=== PATIENT | male | born 1945 ===

== ENCOUNTER 2016-12-04 01:09 | Inpatient (IN) | payer OTHER, MEDICAID ==
[2016-12-04 01:16] VITALS: BMI 37.4
--- NOTE | 2016-12-04 01:35 | ED PDOC ---
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 Pt states pain began as intermittent and has slowly progressed to consistent pain. Pt indicates epigastric region when asked to point to pain. Pt reports 1 episode of non- bloody diarrhea yesterday accompanied by dizziness. Pt continued to have dizziness and nausea today. Pt also describes his abd as hard and distended which is unusual for him. Pt admits to decreased appetite. Pt denies F/C, CP, SOB, vomiting. (Eula Mathew) Past Medical History - Provider Review Nursing Documentation Reviewed: Yes - Infectious Disease Hx of Infectious Diseases: None - Tetanus Immunization Tetanus Immunization: Unknown - Cardiac Hx TN: Yes (x1) Hx Hypertension: Yes Hx Pacemaker: Yes (MEDTRONIC) - Neurological HX Cerebrovascular Accident: Yes (x1) Hx Paralysis: No - Endocrine/Metabolic Hx Diabetes Mellitus Type 2: Yes Hx Hypothyroidism: Yes - Hematological/Oncological Hx Blood Transfusions: No Hx Blood Transfusion Reaction: No - Integumentary Hx Dermatological Disorder: (facial skin ca) - Musculoskeletal/Rheumatological Hx Musculoskeletal Disorders: Yes - Psychiatric Hx Emotional Abuse: No Hx Physical Abuse: No Hx Substance Use: No - Surgical History Hx Open Heart Surgery: Yes Hx Orthopedic Surgery: Yes (right hand) Other/Comment: PACE MAKER - Anesthesia Hx Anesthesia: Yes Hx Anesthesia Reactions: No Hx Malignant Hyperthermia: No - Suicidal Assessment Feels Threatened In Home Enviroment: No <Eula Mathew - Last Filed: 12/04/16 06:03> Family/Social History Family/Social History: No Known Family HX Smoking Status: Former Smoker Hx Alcohol Use: No (QUIT YRS AGO) Hx Substance Use: No Hx Substance Use Treatment: No <Eula Mathew - Last Filed: 12/04/16 06:03> Allergies/Home Meds <Eula Mathew - Last Filed: 12/04/16 06:03> <Julien Edgar - Last Filed: 12/04/16 06:17> Allergies/Adverse Reactions: Allergies No Known Allergies Allergy (Verified 12/04/16 01:21) Home Medications: Home Meds Medication Instructions Recorded Confirmed Fenofibrate 160 mg PO QAM 07/14/12 12/04/16 Oxcarbazepine [Trileptal] 150 mg PO QAM 07/14/12 12/04/16 Simvastatin 40 mg PO QPM 07/14/12 12/04/16 MetFORMIN [glucoPHAGE] 500 mg PO TID 09/02/14 12/04/16 Furosemide [Lasix] 40 mg PO QAM 10/03/14 12/04/16 Pantoprazole [Protonix] 40 mg PO QAM 10/03/14 12/04/16 Cyanocobalamin [Vitamin B12 100 100 mcg PO BID 05/07/16 12/04/16 mcg Tab] Levothyroxine Sodium [Unithroid] 25 mcg PO QAM 05/07/16 12/04/16 Lisinopril 10 mg PO QAM 05/07/16 12/04/16 Metoprolol Tartrate [Lopressor] 25 mg PO BID 05/07/16 12/04/16 Potassium Chloride 20 meq PO QAM 05/07/16 12/04/16 Warfarin Sodium [Jantoven] 3 mg PO DAILY 05/07/16 12/04/16 Icosapent Ethyl [Vascepa] 1 tab PO DAILY 12/04/16 12/04/16 Review of Systems - Physician Review All systems were reviewed & negative as marked: Yes - Review of Systems Respiratory: absent: SOB Cardiovascular: absent: Chest Pain <QuincyEula - Last Filed: 12/04/16 06:03> Physical Exam Vital Signs Reviewed: Yes Temperature: Afebrile Blood Pressure: Normal Pulse: Regular Respiratory Rate: Normal Appearance: Positive for: Uncomfortable Pain Distress: Mild Mental Status: Positive for: Alert and Oriented X 3 - Systems Exam Head: Present: Atraumatic, Normocephalic Pupils: Present: PERRL Extroacular Muscles: Present: EOMI Conjunctiva: Present: Normal Mouth: Present: Moist Mucous Membranes Respiratory/Chest: Present: Clear to Auscultation, Good Air Exchange. No: Respiratory Distress, Accessory Muscle Use Cardiovascular: Present: Regular Rate and Rhythm, Normal S1, S2. No: Murmurs Abdomen: Present: Tenderness (TTP LLQ/epigastric), Distention (moderate), Guarding (voluntary), Hernias (umbilical), Scars. No: Normal Bowel Sounds ( hypoactive), Peritoneal Signs, Rebound Upper Extremity: Present: Normal Inspection Lower Extremity: Present: Normal Inspection, NORMAL PULSES. No: Edema Neurological: Present: GCS=15, Speech Normal Skin: Present: Warm, Dry, Normal Color Psychiatric: Present: Alert, Oriented x 3, Normal Concentration, Normal Affect, Normal Mood <Eula Mathew - Last Filed: 12/04/16 06:03> Medical Decision Making - RAD Interpretation Order Desk Caller: ED Physician - EKG Interpretation Interpreted by ED Physician: Yes Type: 12 lead EKG <Eula Mathew - Last Filed: 12/04/16 06:03> <Julien Edgar - Last Filed: 12/04/16 06:17> ED Course and Treatment: 12/04/16 02:11 71 year old M w/ abd pain 2/2 diverticulitis vs gastric ulcer vs ischemic colitis - CBC, CMP, Lipase - Lactic Acid - Cardiac ISO - EKG - CXR - CT A/P w/ PO & IV contrast 12/04/16 06:06 Surgical consult placed for Dr. Gomez per Dr. Corbin's request (Eula Mathew) Seen and examined with resident. 71 y/o M with significant cardiac history p/w abdominal distention, vomiting. Abdomen distended with epigastric and LLQ tenderness. (Julien Edgar) - Lab Interpretations Lab Results: 12/04/16 01:35 12/04/16 01:35 Lab Results 12/04/16 01:35: Sodium 143, Potassium 4.2, Chloride 105, Carbon Dioxide 26, Anion Gap 16, BUN 26 H, Creatinine 1.5 H, Est GFR ( Amer) 56, Est GFR ( Non-Af Amer) 46, Random Glucose 146 H, Calcium 10.2, Total Bilirubin 0.5, AST 30 , ALT 30, Alkaline Phosphatase 38, Lactate Dehydrogenase 588, Total Creatine Kinase 89, Troponin I < 0.01, Total Protein 8.0, Albumin 4.5, Globulin 3.5, Albumin/Globulin Ratio 1.3, Amylase 93, Lipase 124 12/04/16 01:35: PT 23.3 H, INR 2.16 H, APTT 34.5 H 12/04/16 01:35: WBC 11.5 H D, RBC 4.48, Hgb 13.8 L, Hct 41.2 L, MCV 92.0, MCH 30.8, MCHC 33.5, RDW 14.4, Plt Count 286, MPV 9.9, Gran % 76.5 H, Lymph % (Auto ) 18.2 L, [place] % (Auto) 3.7, Eos % (Auto) 1.1 L, Baso % (Auto) 0.5, Gran # 8.78 H, Lymph # 2.1, [place] # 0.4, Eos # 0.1, Baso # 0.06 - RAD Interpretation Narrative RAD Interpretations (Text): 12/04/16 03:05 CXR: cardiomegaly, no active disease. no pneumoperitoneum. interpretted by mi 12/04/16 06:03 CT A/P w/ PO contrast: FINDINGS: The liver is normal. The spleen is normal. The pancreas is normal. Gallstones are present. No hydronephrosis. There is bilateral perinephric stranding. There is dilation of the distal esophagus and stomach with fluid. There are dilated proximal small bowel loops in the abdomen and upper pelvis measuring up to 3 cm in diameter. The dilated loops contain contrast, fluid, and stool. There are nondilated small bowel loops distally. The transition from the dilated loops to the nondilated loops occurs gradually in the right lower abdomen on images 84 through 140, rather than an abrupt transition point. A normal appendix is identified axial images 90-112. IMPRESSION: Dilated proximal small bowel with nondilated distal small bowel. Differential diagnosis includes mid small bowel obstruction, focal ileus, focal enteritis. An abrupt transition point is not present, but rather a gradual decrease in caliber, making obstruction less likely however still possible. Cholelithiasis. (Eula Mathew) - EKG Interpretation EKG Interpretation (Text): 12/04/16 02:13 ventricular paced w/ underlying Afib, HR 80, poor R-wave progression (Eula Mathew) - Medication Orders Current Medication Orders: Discontinued Medications Famotidine (Pepcid) 20 mg IVP STAT STA Stop: 12/04/16 01:55 Last Admin: 12/04/16 02:23 Dose: 20 mg Lactated Ringer's (Lactated Ringer's) 1,500 mls @ 1,000 mls/hr IV BOLUS STA Stop: 12/04/16 03:23 Last Admin: 12/04/16 02:29 Dose: 1,000 mls/hr Piperacillin Sod/Tazobactam Sod (Zosyn 4.5 Gm In Ns 100ml) 4.5 gm in 100 mls @ 200 mls/hr IVPB STAT STA PRN Reason: Protocol Stop: 12/04/16 03:11 Last Admin: 12/04/16 03:15 Dose: 200 mls/hr Sodium Chloride (Sodium Chloride 0.9%) 500 mls @ 999 mls/hr IV .Q31M STA Stop: 12/04/16 05:53 Last Admin: 12/04/16 05:40 Dose: 999 mls/hr Morphine Sulfate (Morphine) 4 mg IVP STAT STA Stop: 12/04/16 01:55 Last Admin: 12/04/16 02:23 Dose: 4 mg Morphine Sulfate (Morphine) 4 mg IVP STAT STA Stop: 12/04/16 05:05 Last Admin: 12/04/16 05:08 Dose: 4 mg Ondansetron HCl (Zofran Inj) 4 mg IVP STAT STA Stop: 12/04/16 01:55 Last Admin: 12/04/16 02:23 Dose: 4 mg ED OBSERVATION <Eula Mathew - Last Filed: 12/04/16 06:03> Date of observation admission: 12/04/16 Time of observation admission: 01:54 <Julien Edgar - Last Filed: 12/04/16 06:17> - Observation admission statement Patient is being placed in observation because:: abd pain (Julien Edgar) - Goals of Observation Goals of observation are:: observation pending CT (Jluien Edgar) - Progress Note Progress Note: 12/04/16 05:[address] read. pain returning. diffusely TTP. abd firmer than initial exam. still distended. (Eula Mathew) 354 No distress, pending CT. [address] No distress. (Julien Edgar) Disposition/Present on Arrival - Present on Arrival Any Indicators Present on Arrival: No History of DVT/PE: No History of Uncontrolled Diabetes: Yes Urinary Catheter: No History of Decub. Ulcer: No History Surgical Site Infection Following: None - Disposition Have Diagnosis and Disposition been Completed?: Yes Disposition Time: 06:07 Patient Plan: Admission, Observation <Eula Mathew - Last Filed: 12/04/16 06:03> <Julien Edgar - Last Filed: 12/04/16 06:17> - Disposition Diagnosis: Abdominal pain, acute, generalized Patient Problems: Current Active Problems Problem Status Onset Abdominal pain, acute, generalized Acute Condition: STABLE
[2016-12-04] MEDS ORDERED: Morphine 4 mg/ml ISec IVP STA ×2 (01:54→05:04)
[2016-12-04 02:21] LABS: ADD MANUAL DIFF? NO
[2016-12-04 02:23] LABS: BASO # 0.06 K/mm3 (0.0-2.0); BASO % 0.5 % (0.0-3.0); EOS # 0.1 (0.0-0.7); EOS % 1.1 % (1.5-5.0); GRAN # 8.78 (1.4-6.5); GRAN % 76.5 % (50.0-68.0); HEMATOCRIT 41.2 % (42.0-52.0); LYMPH # 2.1 (1.2-3.4); LYMPH % 18.2 % (22.0-35.0); MEAN CORPUSCULAR HEMOGLOBIN 30.8 pg (25.0-35.0); MEAN CORPUSCULAR HGB CONC 33.5 g/dl (31.0-37.0); MEAN PLATELET VOLUME 9.9 fl (7.0-11.0); MONO # 0.4 (0.1-0.6); MONO % 3.7 % (1.0-6.0); PLATELET COUNT 286 10^3/uL (120.0-450.0); RED CELL DISTRIBUTION WIDTH 14.4 % (11.5-14.5); WHITE BLOOD COUNT 11.5 10^3/ul (4.5-11.0)
[2016-12-04 02:36] LABS: INR 2.16 (0.93-1.08); PARTIAL THROMBOPLASTIN TIME 34.5 Seconds (23.7-30.8)
[2016-12-04 02:39] LABS: ALB/GLOB RATIO 1.3 (1.1-1.8); ALKALINE PHOSPHATASE 38 U/L (38-133); ALT/SGPT 30 U/L (7-56); AMYLASE 93 U/L (35-125); AST/SGOT 30 U/L (15-59); BILIRUBIN,TOTAL 0.5 mg/dL (0.2-1.3); BLOOD UREA NITROGEN 26 mg/dL (7-21); CALCIUM 10.2 mg/dL (8.4-10.5); CARBON DIOXIDE 26 mmol/L (21-33); CHLORIDE 105 mmol/L (98-107); GFR AFRICAN-AMERICAN 56; GLUCOSE,RANDOM 146 mg/dL (70-110); LIPASE 124 U/L (23-300); POTASSIUM 4.2 mmol/L (3.6-5.0); SODIUM 143 mmol/L (132-148)
[2016-12-04] MEDS ORDERED: Piperacill/Tazo 4.5gm in NS 4.5 GM/100 ML BAG IVPB STA (02:42)
[2016-12-04 02:51] LABS: TROPONIN I < 0.01 ng/mL
[2016-12-04] MEDS ORDERED: Sodium Chloride 0.9% 500 ML IV STA (05:23)
--- NOTE | 2016-12-04 06:00 | CT ---
EXAM: CT Abdomen and Pelvis With Intravenous Contrast CLINICAL HISTORY: 71 years old, male; Pain; Abdominal pain; Additional info: Abd pain, distension TECHNIQUE: Axial computed tomography images of the abdomen and pelvis with intravenous contrast. This CT exam was performed using one or more of the following dose reduction techniques: automated exposure control, adjustment of the mA and/or kV according to patient size, and/or use of iterative reconstruction technique. Coronal and sagittal reformatted images were created and reviewed. CONTRAST: 100 mL of [id number] administered intravenously. EXAM DATE/TIME: 12/04/2016 4:24 AM COMPARISON: No relevant prior studies available. FINDINGS: The liver is normal. The spleen is normal. The pancreas is normal. Gallstones are present. No hydronephrosis. There is bilateral perinephric stranding. There is dilation of the distal esophagus and stomach with fluid. There are dilated proximal small bowel loops in the abdomen and upper pelvis measuring up to 3 cm in diameter. The dilated loops contain contrast, fluid, and stool. There are nondilated small bowel loops distally. The transition from the dilated loops to the nondilated loops occurs gradually in the right lower abdomen on images 84 through 140, rather than an abrupt transition point. A normal appendix is identified axial images 90-112. IMPRESSION: Dilated proximal small bowel with nondilated distal small bowel. Differential diagnosis includes mid small bowel obstruction, focal ileus, focal enteritis. An abrupt transition point is not present, but rather a gradual decrease in caliber, making obstruction less likely however still possible. Cholelithiasis.
[2016-12-04] MEDS: HYDROmorphone 0.5 mg/0.5 ml ISec IVP PRN ×2 (09:54→23:52)
[2016-12-04] MEDS: Lactated Ringer's 1,000 ML IV SCH ×3 (10:00→22:00)
--- NOTE | 2016-12-04 10:23 | CP.PCM.CON ---
<Lit Isabel - Last Filed: 12/05/16 06:47> History of Present Illness - History of Present Illness History of Present Illness: General Surgery Consult Note for CC: Abdominal pain X 1 day This 71M with a PMH of HTN, Hypothyroid, AFib, DM, CABG s/p stenting presented with one day of abdominal pain. He reports one episode of coffee ground emesis. He also reports that last BM was yesterday. he describes his belly as being significantly larger than it usually is. He denies any fevers chills chest pain. He reports this is the first time he has had this kind of episode. He reports his pain as diffuse. Worse with sitting up. Nothing makes it better. CT in ED shows mildly distended loops of small bowel and significant fluid in the stomach. NGT placed at bedside by me yielded immediate output of over 1L bilious chyme, followed by self limiting sanguinous output. PMH: See above PSH: Open Heart ALL: NKDA Social: Denies smoking, drinking, drugs Review of Systems - Review of Systems All systems: reviewed and no additional remarkable complaints except Past Patient History - Infectious Disease Hx of Infectious Diseases: None - Tetanus Immunizations Tetanus Immunization: Unknown - Past Social History Smoking Status: Former Smoker - CARDIAC Hx Heart Attack: Yes (x1) Hx Hypertension: Yes Hx Pacemaker: Yes (MEDTRONIC) - NEUROLOGICAL HX Cerebrovascular Accident: Yes (x1) Hx Paralysis: No - ENDOCRINE/METABOLIC Hx Diabetes Mellitus Type 2: Yes Hx Hypothyroidism: Yes - HEMATOLOGICAL/ONCOLOGICAL Hx Blood Transfusions: No Hx Blood Transfusion Reaction: No - INTEGUMENTARY Hx Dermatological Problems: (facial skin ca) - MUSCULOSKELETAL/RHEUMATOLOGICAL Hx Musculoskeletal Disorders: Yes - PSYCHIATRIC Hx Emotional Abuse: No Hx Physical Abuse: No Hx Substance Use: No - SURGICAL HISTORY Hx Open Heart Surgery: Yes Hx Orthopedic Surgery: Yes (right hand) Other/Comment: PACE MAKER - ANESTHESIA Hx Anesthesia: Yes Hx Anesthesia Reactions: No Hx Malignant Hyperthermia: No Meds Allergies/Adverse Reactions: Allergies Allergy/AdvReac Type Severity Reaction Status Date / Time No Known Allergies Allergy Verified 12/04/16 01:21 - Medications Medications: Current Medications Hydromorphone HCl (Dilaudid) 0.5 mg IVP Q6H PRN PRN Reason: Pain, severe (8-10) Last Admin: 12/04/16 09:54 Dose: 0.5 mg Lactated Ringer's (Lactated Ringer's) 1,000 mls @ 150 mls/hr IV .Q6H40M [facility] Last Admin: 12/04/16 10:00 Dose: 150 mls/hr Physical Exam - Constitutional Appears: Non-toxic, No Acute Distress - Head Exam Head Exam: ATRAUMATIC, NORMOCEPHALIC - Eye Exam Eye Exam: EOMI - ENT Exam ENT Exam: Mucous Membranes Moist - Respiratory Exam Respiratory Exam: NORMAL BREATHING PATTERN - Cardiovascular Exam Cardiovascular Exam: REGULAR RHYTHM - GI/Abdominal Exam GI & Abdominal Exam: Distended, Soft, Tenderness. absent: Firm, Guarding, Hernia, Pulsatile Mass, Rebound, Rigid - Extremities Exam Extremities exam: Positive for: normal inspection - Neurological Exam Neurological exam: Alert, Oriented x3 - Psychiatric Exam Psychiatric exam: Normal Affect, Normal Mood - Skin Skin Exam: Dry, Intact, Normal Color Results - Vital Signs Recent Vital Signs: Last Vital Signs Temp 97.9 F 12/04/16 07:48 Pulse 64 12/04/16 07:48 Resp 18 12/04/16 07:48 BP 152/66 H 12/04/16 07:48 Pulse Ox 95 12/04/16 07:48 - Labs Result Diagrams: 12/04/16 11:00 12/04/16 13:20 Labs: Laboratory Results - last 24 hr 12/04/16 02:20 Lactic Acid 3.0 H - Imaging and Cardiology CT scan - abdomen Status: Image reviewed by me, Report reviewed by me Assessment & Plan - Assessment and Plan (Free Text) Assessment: This is a 71M presenting with abdominal pain likely due to an ileus vs SBO. NPO with ice chips NGT to constant suction @ 100 serial abdominal exams Medical managment per primary team. D/W Dr. Jason Isabel PGY-1 <Oscar Gomez - Last Filed: 12/05/16 10:31> Meds - Medications Medications: Current Medications Benzocaine/Menthol (Cepacol Sore Throat) 1 caron MT Q2H PRN PRN Reason: Sore Throat Last Admin: 12/05/16 09:05 Dose: 1 caron Lactated Ringer's (Lactated Ringer's) 1,000 mls @ 150 mls/hr IV .Q6H40M [facility] Last Admin: 12/05/16 09:05 Dose: 150 mls/hr Piperacillin Sod/Tazobactam Sod (Zosyn 3.375 In Ns 100ml) 100 mls @ 200 mls/hr IVPB Q6 DYLON PRN Reason: Protocol Stop: 12/05/16 18:29 Results - Vital Signs Recent Vital Signs: Last Vital Signs Temp 98.8 F 12/05/16 08:09 Pulse 61 12/05/16 08:09 Resp 18 12/05/16 08:09 BP 156/66 H 12/05/16 08:09 Pulse Ox 91 L 12/05/16 08:09 - Labs Result Diagrams: 12/05/16 05:00 12/05/16 08:01 Labs: Laboratory Results - last 24 hr 12/04/16 12/04/16 12/05/16 11:00 13:20 05:00 WBC 12.3 H 7.5 D RBC 4.23 4.04 Hgb 12.7 L 12.2 L Hct 38.9 L 37.6 L MCV 92.0 93.1 MCH 30.0 30.2 MCHC 32.6 32.4 RDW 14.4 14.6 H Plt Count 280 244 MPV 9.8 9.7 Gran % 89.4 H 66.3 Lymph % (Auto) 4.6 L 19.3 L [place] % (Auto) 5.6 9.9 H Eos % (Auto) 0.2 L 4.0 Baso % (Auto) 0.2 0.5 Gran # 10.99 H 4.96 Lymph # 0.6 L 1.4 [place] # 0.7 H 0.7 H Eos # 0.0 0.3 Baso # 0.03 0.04 Sodium 141 Potassium 4.4 Chloride 106 Carbon Dioxide 24 Anion Gap 15 BUN 23 H Creatinine 1.3 Est GFR ( Amer) > 60 Est GFR (Non-Af Amer) 55 Random Glucose 117 H Calcium 9.5 Total Bilirubin 0.4 AST 30 ALT 26 Alkaline Phosphatase 35 L Total Protein 7.2 Albumin 4.0 Globulin 3.2 Albumin/Globulin Ratio 1.3 Triglycerides Cholesterol LDL Cholesterol Direct HDL Cholesterol Amylase Lipase 47 12/05/16 08:01 WBC RBC Hgb Hct MCV MCH MCHC RDW Plt Count MPV Gran % Lymph % (Auto) [place] % (Auto) Eos % (Auto) Baso % (Auto) Gran # Lymph # [place] # Eos # Baso # Sodium 141 Potassium 3.8 Chloride 105 Carbon Dioxide 29 Anion Gap 11 BUN 18 Creatinine 1.3 Est GFR ( Amer) > 60 Est GFR (Non-Af Amer) 55 Random Glucose 101 Calcium 8.9 Total Bilirubin 0.7 AST 25 ALT 28 Alkaline Phosphatase 31 L Total Protein 6.4 Albumin 3.4 Globulin 3.0 Albumin/Globulin Ratio 1.1 Triglycerides 130 Cholesterol 127 L LDL Cholesterol Direct 83 HDL Cholesterol 30 Amylase 55 Lipase Assessment & Plan - Assessment and Plan (Free Text) Assessment: Dx PSBO vs Ileus DM II/HTCAD/BPH Kyler NG Tube(!500cc initially) IV Fluids(150/hr) This consult done under my direct supervision Chele Gomez MD FACS
[2016-12-04 11:09] LABS: ADD MANUAL DIFF? NO
[2016-12-04 11:13] LABS: BASO # 0.03 K/mm3 (0.0-2.0); BASO % 0.2 % (0.0-3.0); EOS % 0.2 % (1.5-5.0); GRAN # 10.99 (1.4-6.5); GRAN % 89.4 % (50.0-68.0); HEMATOCRIT 38.9 % (42.0-52.0); LYMPH # 0.6 (1.2-3.4); LYMPH % 4.6 % (22.0-35.0); MEAN CORPUSCULAR HGB CONC 32.6 g/dl (31.0-37.0); MEAN PLATELET VOLUME 9.8 fl (7.0-11.0); MONO # 0.7 (0.1-0.6); MONO % 5.6 % (1.0-6.0); PLATELET COUNT 280 10^3/uL (120.0-450.0); RED CELL DISTRIBUTION WIDTH 14.4 % (11.5-14.5); WHITE BLOOD COUNT 12.3 10^3/ul (4.5-11.0)
[2016-12-04] MEDS ORDERED: Pneumococcal 23-Valent Vaccine IM ONE (12:16)
--- NOTE | 2016-12-04 12:43 | CP.PCM.PCO ---
Physician Communication Note - Physician Communication Note Physician Communication Note: PSBOW Bleeding(NGT)/Cons Rx Now=no surgery
[2016-12-04 13:55] LABS: ALB/GLOB RATIO 1.3 (1.1-1.8); ALKALINE PHOSPHATASE 35 U/L (38-133); ALT/SGPT 26 U/L (7-56); AST/SGOT 30 U/L (15-59); BILIRUBIN,TOTAL 0.4 mg/dL (0.2-1.3); BLOOD UREA NITROGEN 23 mg/dL (7-21); CALCIUM 9.5 mg/dL (8.4-10.5); CARBON DIOXIDE 24 mmol/L (21-33); CHLORIDE 106 mmol/L (98-107); GFR AFRICAN-AMERICAN > 60; GLUCOSE,RANDOM 117 mg/dL (70-110); LIPASE 47 U/L (23-300); POTASSIUM 4.4 mmol/L (3.6-5.0); SODIUM 141 mmol/L (132-148); TOTAL PROTEIN 7.2 g/dL (5.8-8.3)
--- NOTE | 2016-12-04 15:48 | CARD ---
APPROVED REPORT EKG Measurement Heart [id number] <Conclusion> Electronic ventricular pacemaker
--- NOTE | 2016-12-05 06:57 | CP.PCM.PN ---
<Lit Isabel - Last Filed: 12/05/16 06:54> Subjective - Date & Time of Evaluation Date of Evaluation: 12/05/16 Time of Evaluation: 06:54 - Subjective Subjective: General Surgery progress Note for Dr. Gomez This 71M was seen and examined this Am at bedside. Reports BM andflatus overnight. He reporst that his abdominal pain is resolved however he still feels bloated and denies apetitis. Patient deneis any fevers, chills, chest pain nausea vomiting or diarrhea. His main complain this Am is sore throat. Objective - Vital Signs/Intake and Output Vital Signs (last 24 hours): Temp Pulse Resp BP Pulse Ox 98.6 F 63 20 164/70 H 97 12/04/16 18:13 12/04/16 18:13 12/04/16 18:13 12/04/16 18:13 12/04/16 18:13 Intake and Output: 12/04/16 12/05/16 18:59 06:59 Intake Total 0 1800 Output Total 300 Balance 0 1500 - Medications Medications: Current Medications Hydromorphone HCl (Dilaudid) 0.5 mg IVP Q6H PRN PRN Reason: Pain, severe (8-10) Last Admin: 12/04/16 23:52 Dose: 0.5 mg Lactated Ringer's (Lactated Ringer's) 1,000 mls @ 150 mls/hr IV .Q6H40M DYL[facility] Last Admin: 12/04/16 22:00 Dose: 150 mls/hr - Labs Labs: 12/04/16 11:00 12/04/16 13:20 PT 23.3 Seconds (9.9-11.8) H 12/04/16 01:35 INR 2.16 (0.93-1.08) H 12/04/16 01:35 APTT 34.5 Seconds (23.7-30.8) H 12/04/16 01:35 - Constitutional Appears: Non-toxic, No Acute Distress - Head Exam Head Exam: ATRAUMATIC, NORMOCEPHALIC - Eye Exam Eye Exam: EOMI - ENT Exam ENT Exam: Mucous Membranes Moist - Respiratory Exam Respiratory Exam: NORMAL BREATHING PATTERN - Cardiovascular Exam Cardiovascular Exam: REGULAR RHYTHM - GI/Abdominal Exam GI & Abdominal Exam: Soft. absent: Distended, Firm, Guarding, Rigid, Tenderness - Neurological Exam Neurological Exam: Alert, Awake - Psychiatric Exam Psychiatric exam: Normal Affect, Normal Mood - Skin Skin Exam: Dry, Intact, Normal Color Assessment and Plan - Assessment and Plan (Free Text) Assessment: This is a 71M presenting with abdominal pain likely due to an ileus vs SBO which shows signs of resolution NPO with ice chips, Advance as tolerated NGT clamped serial abdominal exams Medical managment per primary team. D/W Dr. Jason Isabel PGY-1 <Oscar Gomez - Last Filed: 12/05/16 10:34> Objective - Vital Signs/Intake and Output Vital Signs (last 24 hours): Temp Pulse Resp BP Pulse Ox 98.8 F 61 18 156/66 H 91 L 12/05/16 08:09 12/05/16 08:09 12/05/16 08:09 12/05/16 08:09 12/05/16 08:09 Intake and Output: 12/05/16 12/05/16 06:59 18:59 Intake Total 1800 Output Total 300 Balance 1500 - Medications Medications: Current Medications Benzocaine/Menthol (Cepacol Sore Throat) 1 caron MT Q2H PRN PRN Reason: Sore Throat Last Admin: 12/05/16 09:05 Dose: 1 caron Lactated Ringer's (Lactated Ringer's) 1,000 mls @ 150 mls/hr IV .Q6H40M [facility] Last Admin: 12/05/16 09:05 Dose: 150 mls/hr Piperacillin Sod/Tazobactam Sod (Zosyn 3.375 In Ns 100ml) 100 mls @ 200 mls/hr IVPB Q6 DYLON PRN Reason: Protocol Stop: 12/05/16 18:29 - Labs Labs: 12/05/16 05:00 12/05/16 08:01 PT 23.3 Seconds (9.9-11.8) H 12/04/16 01:35 INR 2.16 (0.93-1.08) H 12/04/16 01:35 APTT 34.5 Seconds (23.7-30.8) H 12/04/16 01:35 Assessment and Plan - Assessment and Plan (Free Text) Assessment: Much improved--I & O totally inadequate Concur with NG Clamping - will recheck later No surgery now Chele Gomez MD FACS
--- NOTE | 2016-12-05 08:04 | RAD ---
HISTORY: abd distension COMPARISON: No prior. FINDINGS: LUNGS: No active pulmonary disease. PLEURA: No significant pleural effusion identified, no pneumothorax apparent. CARDIOVASCULAR: Cardiomegaly. Pacemaker and lead in place. Status post CABG. OSSEOUS STRUCTURES: No significant abnormalities. VISUALIZED UPPER ABDOMEN: Normal. OTHER FINDINGS: None. IMPRESSION: No active disease.
[2016-12-05 08:15] LABS: ADD MANUAL DIFF? NO; BASO # 0.04 K/mm3 (0.0-2.0); BASO % 0.5 % (0.0-3.0); EOS # 0.3 (0.0-0.7); GRAN # 4.96 (1.4-6.5); GRAN % 66.3 % (50.0-68.0); HEMATOCRIT 37.6 % (42.0-52.0); LYMPH # 1.4 (1.2-3.4); LYMPH % 19.3 % (22.0-35.0); MEAN CELL VOLUME 93.1 fL (80.0-105.0); MEAN CORPUSCULAR HEMOGLOBIN 30.2 pg (25.0-35.0); MEAN CORPUSCULAR HGB CONC 32.4 g/dl (31.0-37.0); MEAN PLATELET VOLUME 9.7 fl (7.0-11.0); MONO # 0.7 (0.1-0.6); MONO % 9.9 % (1.0-6.0); PLATELET COUNT 244 10^3/uL (120.0-450.0); RED CELL DISTRIBUTION WIDTH 14.6 % (11.5-14.5); WHITE BLOOD COUNT 7.5 10^3/ul (4.5-11.0)
[2016-12-05 08:25] LABS: ALB/GLOB RATIO 1.1 (1.1-1.8); ALKALINE PHOSPHATASE 31 U/L (38-133); ALT/SGPT 28 U/L (7-56); AMYLASE 55 U/L (35-125); AST/SGOT 25 U/L (15-59); BILIRUBIN,TOTAL 0.7 mg/dL (0.2-1.3); BLOOD UREA NITROGEN 18 mg/dL (7-21); CALCIUM 8.9 mg/dL (8.4-10.5); CARBON DIOXIDE 29 mmol/L (21-33); CHLORIDE 105 mmol/L (98-107); CHOLESTEROL 127 mg/dL (130-200); GFR AFRICAN-AMERICAN > 60; GLUCOSE,RANDOM 101 mg/dL (70-110); POTASSIUM 3.8 mmol/L (3.6-5.0); SODIUM 141 mmol/L (132-148); TOTAL PROTEIN 6.4 g/dL (5.8-8.3)
--- NOTE | 2016-12-05 08:30 | HP ---
The patient was seen and examined on 12/04/2016. CHIEF COMPLAINT: Abdominal pain. HISTORY OF PRESENT ILLNESS: The patient is a 71-year-old, my private patient, with past medical history of atrial fibrillation, CABG, hypertension, hypercholesterolemia, diabetes mellitus. Came to the Emergency Room complaining about sharp, severe abdominal pain. The patient states that pain began as intermittent and has slowly progressed to consistent pain. The patient indicates epigastric region when asked to point the pain. The patient reports 1 episode of nonbloody diarrhea yesterday accompanied by dizziness. The patient continued to have dizziness and nausea today. The patient also described his abdominal pain and distention, which is unusual for him, decreased appetite. Denies fever, chills, chest pain. Now, patient is having NG tube. Still complaining about abdominal pain. PAST MEDICAL HISTORY: History of SC, hypertension, pacemaker, cerebrovascular accident, diabetes mellitus type 2, facial skin cancer, open heart surgery, pacemaker. FAMILY HISTORY: Father and mother noncontributory. HABITS: No smoking, no drugs, no ethanol. ALLERGIES: The patient is not allergic with any medication. HOME MEDICATIONS: Fenofibrate, Trileptal, simvastatin, metformin, Lasix, Protonix, multivitamins, lisinopril, Lopressor, potassium chloride, REVIEW OF SYSTEMS: The patient seen and examined on the bedside on 12/04/2016, still having NG tube. Complaining about abdominal pain. No shortness of breath. No headache, no dizziness. No fever, no chills. Oriented x 3. PHYSICAL EXAMINATION: VITAL SIGNS: Temperature 98.6, pulse 63, blood pressure 164/70, respiratory rate 20. HEENT: Head normocephalic, atraumatic. Eyes, PERRLA. Extraocular muscles intact. Conjunctivae clear. Nose patent. Mucous membranes moist. NECK: Supple. No carotid bruit, no JVD, no thyromegaly. CHEST: Bilaterally symmetrical. HEART: S1, S2 positive. LUNGS: Clear to auscultation. ABDOMEN: Hard. Bowel sounds positive. No organomegaly. EXTREMITIES: No edema, no cyanosis. NEUROLOGIC: The patient is awake, alert, moving all 4 extremities. No focal deficit. LABORATORIES: White blood cells 12.3, hemoglobin 12.7, hematocrit 38.9, platelets 280. Sodium 141, potassium 4.4, BUN 23, creatinine 1.3, glucose 117 ASSESSMENT AND PLAN: The patient is a 71-year-old male with leukocytosis, anemia, increased BUN, hyperglycemia. Came with abdominal pain. Chest x-ray is done, CAT scan of the abdomen done, reviewed by me. Dilated proximal small bowel with nondilated distal small bowel. Differential diagnosis includes mid small bowel obstruction, focal ileus, focal enteritis and abrupt transition point is not present, but rather it gradually decreases in caliber making obstruction last like, however, still possible. The patient is seen by the surgeon, Dr. Gomez. The patient has history of hypertension, hypothyroidism , atrial fibrillation, diabetes mellitus, coronary artery bypass graft, status post cardiac stenting, history of coffee ground emesis, history of leukocytosis , anemia, hyperglycemia. According to Dr. Gomez, the patient does not need surgery, has nasogastric tube, still draining. Will call GI consult also. Gastrointestinal and deep venous thrombosis prophylaxis. Repeat labs. We will follow up. Holly Corbin MD cc: [id number] TT: 12/05/2016 08:29:16 en MTDD
[2016-12-05] MEDS: Lactated Ringer's 1,000 ML IV SCH ×3 (09:05→21:36)
[2016-12-05] MEDS: Benzocaine/Menthol (Cepacol) Lozenge MT PRN ×4 (09:05→21:35)
[2016-12-05] MEDS: Piperacillin/Tazobact 3.375 gm 100 ML IVPB SCH ×2 (13:07→17:15)
--- NOTE | 2016-12-05 18:37 | PN ---
DATE: 12/05/2016 SUBJECTIVE: The patient was seen and examined on the bedside, sitting on the chair. Still has NG tube draining, but very little. No nausea, vomiting, or diarrhea. No hematuria. Abdomen is still a little bit tight and feeling bloated and gassy but no diarrhea. No fever, no chills. No headache, no dizziness and no shortness of breath. PHYSICAL EXAMINATION: VITAL SIGNS: Temperature 99.9, pulse 72, blood pressure 150/66 and respiratory rate 16. HEENT: Head normocephalic, atraumatic. Eyes: PERRLA. Extraocular muscles intact. Conjunctivae clear. Nose patent. Mucous membranes moist. Nose patent. Has a NG tube. NECK: Supple. No carotid bruit, JVD or thyromegaly. CHEST: Bilaterally symmetrical. HEART: S1, S2 positive. LUNGS: Clear to auscultation. ABDOMEN: Soft. Bowel sounds present. No organomegaly. EXTREMITIES: No edema, no cyanosis. NEUROLOGIC: The patient is awake, alert, moving all 4 extremities. No focal deficits. MEDICATIONS: lactate Ringer, Protonix, piperacillin/tazobactam. LABORATORY DATA: White blood cells 7.5, hemoglobin 12.2, hematocrit 37.6, platelets 244. Sodium 141, potassium 3.8, BUN 18, creatinine noted . GFR more than 60. Alkaline phosphatase 31. ASSESSMENT AND PLAN: The patient is a 71-year-old male with leukocytosis, improved; anemia, stable; increased BUN, improved; history of myocardial infarction, hypertension, pacemaker, cerebrovascular accident, diabetes mellitus type 2, facial skin cancer, open heart surgery who came with abdominal pain, nausea, vomiting and NG tube. No more nauseous. Abdominal pain is getting better, but still tight. almost resolving. No fevers or chills. Concur with NG tube clamping, will recheck later. No surgery as per surgical team. GI is on the case. Awaiting for their input. Will repeat labs and will followup. Holly Corbin MD cc: [id number] TT: 12/05/2016 18:36:59 Confirmation # [id number] Dictation # [id number] vivien LINN
--- NOTE | 2016-12-05 18:48 | CON ---
DATE: 12/05/2016 REFERRING PHYSICIAN: Dr. Corbin. REASON FOR CONSULT: Chronic lung disease, history of sleep apnea syndrome, admitted with small-bowel obstruction. HISTORY OF PRESENT ILLNESS: This is a 71-year-old gentleman with past medical history significant fo r obstructive sleep apnea syndrome, coronary artery disease requiring coronary artery bypass surgery, atrial fibrillation, hyperlipidemia, diabetes, comes into Emergency Room for the last few days has b een having bloating of the abdomen, abdominal pain, had 1 diarrhea in ER, ended up getting x-rays and found to have a small bowel obstruction with dilatation of the proximal small bowel seen by Dr. Rd donovan. Nasogastric tube was placed in, drain fluid. Presently, sitting up in a chair, nasogastric tu be is clamped. He feels much better, but still feels bloated. Pain is gone. He did have a bowel mo vement. No leg pain or leg swelling. He is noncompliant with CPAP/BiPAP. No cough, no sputum produ ction, no leg pain or leg swelling. PAST MEDICAL HISTORY: Coronary artery disease, history of coronary bypass surgery, atrial fibrillati on, history of cardiac arrhythmia requiring pacemaker, history of stroke, diabetes, hyperlipidemia. SOCIAL HISTORY: Nonsmoker, nondrinker. ALLERGIES: None known. FAMILY HISTORY: No significant cardiopulmonary disease reported. MEDICATIONS: He is on Cepacol lozenges q. 2 hours for sore throat, IV fluids, lactated Ringer's 150 mL per hour, Zosyn 3.375 grams q. 6 hours. REVIEW OF SYSTEMS: No headache, no rhinitis, sore throat with a nasogastric tube. No chest pain, no cough, abdominal pain has improved. No dysuria. Did have a bowel movement this morning. No leg pa in or leg swelling. PHYSICAL EXAMINATION: GENERAL: Sitting up in a chair in no acute distress. VITAL SIGNS: Temp is 98, heart rate is 61, respiratory rate is 20, blood pressure 156/66, pulse ox 9 1% on room air. HEENT: Moist mucous membranes. Crowded airway. Mallampati score is 4. NECK: Supple. No JVD. LUNGS: Has a fair airflow with few rhonchi. HEART: Irregularly irregular. ABDOMEN: Soft, nontender. Is distended, positive bowel sounds. EXTREMITIES: There is no edema. NEUROLOGIC: Awake, alert, follows simple commands. LABORATORY DATA: Shows hemoglobin 12.4, hematocrit 37.6, WBC 7.5, platelet is 244. INR 2.16, PTT 35 . Sodium 141, potassium 3.8, chloride 105, bicarbonate 29, BUN 18, creatinine 1.3, glucose 101, calc ium is 8.9. AST 25, ALT 28, alkaline phosphatase is 31. Albumin is 3.4. Cholesterol is 127, amylas e is 55. Microbiology: Blood cultures have been negative. CT of the abdomen shows a small bulbar o bstruction with the proximal small bowel distended. Chest x-ray was done in the ER yesterday, shows no active pulmonary disease. IMPRESSION AND PLAN: Small-bowel obstruction, requiring nasogastric tube, feels better. Obstructiv e sleep apnea syndrome, coronary artery disease, history of coronary bypass surgery, hypertension, hy pothyroid, atrial fibrillation and diabetes. The patient seen by general surgery, Dr. Gomez. Na sogastric tube placed and feels much better. I will place him on IV Protonix. Keep head elevated at 45 degrees. Sleep apnea precaution. Avoid sedation. SCD to lower extremity. We will get INR in t he morning, once this was subtherapeutic below 2, may need to start on subQ Lovenox if still n.p.o. b y tomorrow. Thank you and will follow with you. John Steele MD cc: [id number] TT: 12/05/2016 18:47:04 Confirmation # [id number] Dictation # [id number] jn
[2016-12-05] MEDS: Insulin Reg-LOW-Coverage SC SCH (22:00)
[2016-12-06] MEDS: Lactated Ringer's 1,000 ML IV SCH (06:41)
[2016-12-06 07:24] LABS: ADD MANUAL DIFF? NO
[2016-12-06 07:35] LABS: BASO # 0.04 K/mm3 (0.0-2.0); BASO % 0.4 % (0.0-3.0); EOS # 0.3 (0.0-0.7); EOS % 3.3 % (1.5-5.0); GRAN # 6.52 (1.4-6.5); GRAN % 71.4 % (50.0-68.0); HEMATOCRIT 34.4 % (42.0-52.0); LYMPH # 1.6 (1.2-3.4); LYMPH % 17.1 % (22.0-35.0); MEAN CELL VOLUME 91.2 fL (80.0-105.0); MEAN CORPUSCULAR HEMOGLOBIN 30.2 pg (25.0-35.0); MEAN CORPUSCULAR HGB CONC 33.1 g/dl (31.0-37.0); MEAN PLATELET VOLUME 9.8 fl (7.0-11.0); MONO # 0.7 (0.1-0.6); MONO % 7.8 % (1.0-6.0); PLATELET COUNT 216 10^3/uL (120.0-450.0); WHITE BLOOD COUNT 9.1 10^3/ul (4.5-11.0)
[2016-12-06 07:40] LABS: INR 1.38 (0.93-1.08)
[2016-12-06 07:47] LABS: ALB/GLOB RATIO 1.2 (1.1-1.8); ALKALINE PHOSPHATASE 33 U/L (38-133); ALT/SGPT 28 U/L (7-56); AST/SGOT 23 U/L (15-59); BILIRUBIN,TOTAL 0.7 mg/dL (0.2-1.3); BLOOD UREA NITROGEN 14 mg/dL (7-21); CALCIUM 8.7 mg/dL (8.4-10.5); CARBON DIOXIDE 27 mmol/L (21-33); CHLORIDE 105 mmol/L (95-110); CHOLESTEROL 129 mg/dL (130-200); GFR AFRICAN-AMERICAN > 60; GLUCOSE,RANDOM 91 mg/dL (70-110); POTASSIUM 4.1 mmol/L (3.6-5.0); SODIUM 138 mmol/L (132-148); TOTAL PROTEIN 6.4 g/dL (5.8-8.3)
--- NOTE | 2016-12-06 07:55 | CP.PCM.PN ---
Subjective - Date & Time of Evaluation Date of Evaluation: 12/06/16 Time of Evaluation: 07:00 - Subjective Subjective: Matthew Serrano D.O. PGY-1, Internal Medicine Resident, General Surgery Progress Note: Dr. Gomez 71 year old male with a PMH of HTN, hypothyroidism, atrial fibrillation, DM, CABG s/p stenting, and ventricular pacer who presented to [facility] on 12/04/16 with one day of abdominal pain. Patient was seen and evaluated at bedside with surgery team. Interview performed in [place] which is the patient's [place] language. Patient states that he is feeling much better, specially now that the NG tube has been removed. Patient states that his belly has decreased in size, he denies N/V, and he has passed gas and had a BM yesterday. Patient would like to try to eat. Only some mild residual discomfort. Objective - Vital Signs/Intake and Output Vital Signs (last 24 hours): Temp Pulse Resp BP Pulse Ox 99.9 F H 72 19 150/66 94 L 12/05/16 17:32 12/05/16 17:32 12/05/16 17:32 12/05/16 17:32 12/05/16 17:32 Intake and Output: 12/06/16 12/06/16 06:59 18:59 Intake Total 3600 Output Total 825 Balance 2775 - Medications Medications: Current Medications Benzocaine/Menthol (Cepacol Sore Throat) 1 caron MT Q2H PRN PRN Reason: Sore Throat Last Admin: 12/05/16 21:35 Dose: 1 caron Heparin Sodium (Porcine) (Heparin) 5,000 units SC Q8 [facility] PRN Reason: Protocol Last Admin: 12/06/16 05:58 Dose: 5,000 units Lactated Ringer's (Lactated Ringer's) 1,000 mls @ 150 mls/hr IV .Q6H40M [facility] Last Admin: 12/06/16 06:41 Dose: 150 mls/hr Insulin Human Regular (Humulin R Low) 0 units SC ACHS [facility] PRN Reason: Protocol Last Admin: 12/05/16 22:00 Dose: Not Given Pantoprazole Sodium (Protonix Inj) 40 mg IVP Q12 [facility] Last Admin: 12/05/16 21:35 Dose: 40 mg Warfarin Sodium (Coumadin) 10 mg PO 1800 [facility] PRN Reason: Protocol - Labs Labs: 12/06/16 07:00 PT 14.9 Seconds (9.9-11.8) H 12/06/16 07:00 INR 1.38 (0.93-1.08) H 12/06/16 07:00 APTT 34.5 Seconds (23.7-30.8) H 12/04/16 01:35 - Constitutional Appears: Well, Non-toxic - Head Exam Head Exam: ATRAUMATIC, NORMOCEPHALIC - Eye Exam Eye Exam: EOMI, PERRL - ENT Exam ENT Exam: Mucous Membranes Moist - Neck Exam Neck Exam: Normal Inspection - Respiratory Exam Respiratory Exam: Clear to Ausculation Bilateral. absent: Rales, Rhonchi, Wheezes - Cardiovascular Exam Cardiovascular Exam: RRR (paced), +S1, +S2 - GI/Abdominal Exam GI & Abdominal Exam: Distended, Soft, Normal Bowel Sounds. absent: Tenderness - Extremities Exam Extremities Exam: Normal Inspection - Neurological Exam Neurological Exam: Alert, Awake, Oriented x3 - Skin Skin Exam: Dry, Intact, Warm Assessment and Plan - Assessment and Plan (Free Text) Assessment: 71 year old male with a PMH of HTN, hypothyroidism, atrial fibrillation, DM, CABG s/p stenting, and ventricular pacer who presented with one day of abdominal pain, found to have an SBO. Plan: Abd pain Ileus vs SBO NG tube removed, no N/V, passing gas and had BM Advancing diet as tolerated Cont serial abd exams Medical management per primary team. Cont SCDs & protonix OOB, encouraged to ambulate as tolerated Will discuss with attending physician. Thank you for the pleasure of participating in the care of this patient.
[2016-12-06] MEDS ORDERED: Lactated Ringer's 1,000 ML IV SCH (08:11)
--- NOTE | 2016-12-06 08:42 | PN ---
DATE: 12/06/2016 The patient is a 71-year-old male. The patient was seen and examined on the bedside. No fever, no chills. No nausea, vomiting, diarrhea. NG tube is out, having ice chips, tolerating very well. According to him abdomen is gassy, bloated. No dyspnea. No swelling of the legs. PHYSICAL EXAMINATION: VITAL SIGNS: Temperature is 98.6 , pulse 72, blood pressure 120/66, respiratory 19, oxygenation 94%, having oxygenation with nasal cannula. HEENT: Head normocephalic, atraumatic. Eyes, PERRLA. Extraocular muscles intact. Conjunctivae clear. Nose patent. Mucous membranes moist. NECK: Supple. No carotid bruit, no JVD, no thyromegaly. CHEST: Bilaterally symmetrical. HEART: S1, S2 positive. LUNGS: Clear to auscultation. ABDOMEN: Soft. No organomegaly. EXTREMITIES: No edema, no cyanosis. NEUROLOGIC: The patient is awake, alert, moving all 4 extremities. No focal deficits. MEDICATIONS: Cepacol lozenges, Coumadin, heparin, insulin, Protonix. LABORATORIES: White blood cells 7.8, hemoglobin 12.2, hematocrit 37.6, platelets 244. Sodium 141, potassium 3.8, BUN 18, creatinine 1.3, glucose 93. ASSESSMENT AND PLAN: The patient is a 71-year-old male, renal insufficiency, improving, hyperglycemia, anemia, history of obstructive sleep apnea syndrome, coronary artery disease requiring coronary artery bypass surgery long time ago, atrial fibrillation, hyperlipidemia. Came to the Emergency Room with bloating of the abdomen, vomiting, abdominal pain and diarrhea, has small bowel obstruction with dilatation of the normal small potion seen by Dr. Gomez. Naras NG tube was placed. The patient's stomach was decompressive. Feels belter. According to Dr. Brown no need of surgery. The patient is getting Protonix. Today, patient has agreed to start on clear liquid diet. Restarted Coumadin. Will follow up. Meanwhile, patient is getting Lovenox subcutaneously. Will restart p.o. medication after the patient can tolerate food. We will follow up. Length of time discussion done with Dr. Steele about patient's pulmonary status and obstructive sleep apnea. Reviewed Dr. Gomez communication report, appreciated. Holly Corbin MD cc: [id number] TT: 12/06/2016 08:41:06 Confirmation # [id number] Dictation # [id number] en MTDD
--- NOTE | 2016-12-06 09:07 | RAD ---
HISTORY: R/O CHF COMPARISON: 10/03/2014. TECHNIQUE: Chest PA and lateral FINDINGS: LUNGS: The lungs are clear. PLEURA: No significant pleural effusion identified. No pneumothorax apparent. CARDIOVASCULAR: There is moderate cardiomegaly. Status post CABG. There is stable position of a left-sided unipolar permanent pacing device. OSSEOUS STRUCTURES: No significant abnormalities. VISUALIZED UPPER ABDOMEN: Normal. OTHER FINDINGS: None. IMPRESSION: No acute findings. Persistent moderate cardiomegaly.
--- NOTE | 2016-12-06 09:21 | RAD ---
HISTORY: F/U SBO COMPARISON: 12/04/2016 CT scan FINDINGS: BOWEL: Normal. No obstruction. No free air. BONES: Normal. OTHER FINDINGS: None. IMPRESSION: No active disease.
[2016-12-06] MEDS: Insulin Reg-LOW-Coverage SC SCH ×4 (10:00→22:11)
--- NOTE | 2016-12-06 11:46 | CP.PCM.PCO ---
Physician Communication Note - Physician Communication Note Physician Communication Note: Still distended:Passing flatus/OK Liquids- suppository
--- NOTE | 2016-12-06 15:32 | CON ---
DATE: 12/06/2016 Seen and examined at the bedside earlier today. The chart was reviewed. REQUEST FOR CONSULT: Abdominal pain. HISTORY OF PRESENT ILLNESS: This is a 71-year-old male who came with a past medical history of atria l fibrillation, hypertension, diabetes mellitus, colon polyps and esophageal ulcerations. Came to [facility] Emergency Room with complaints of sharp, severe abdominal pain in the epigastric area. The patient does report one episode of nonbloody diarrhea and also having nausea. The patient denies any chest pain, shortness of breath, fever, or chills. On admission, the patient had a CT scan of abdomen and pelvis which was reporting a dilated proximal small bowel, possible bowel obstruction, ileus or enter itis. The patient did have NG tube that was discontinued yesterday. He went for an abdominal x-ray this morning, which was negative for any small-bowel obstruction. He denies any nausea, vomiting. S till has a little bit of abdominal pain, but no acute distress. His last endoscopy and colonoscopy w as done in 05/[address] Calderón. Found to have Martinez's esophagus, gastritis, esophageal erosions a nd colon polyp. PAST MEDICAL HISTORY: As stated above, atrial fibrillation, colon polyps, Martinez's esophagus/esopha geal erosions, atrial fibrillation, CABG, hypertension, hypercholesterolemia, diabetes mellitus, pace maker, CVA, hypothyroidism. ALLERGIES: No known drug allergies. FAMILY HISTORY: Noncontributory at this time. SOCIAL HISTORY: The patient was a former smoker. Denies ETOH, quit many years ago. Denies any subs tance abuse. MEDICATIONS: Reviewed as per SEP. Significant for Coumadin, simvastatin, Protonix, Trileptal, Lopre ssor, Glucophage, lisinopril, levothyroxine, ____, Lasix, fenofibrate and vitamin B12. REVIEW OF SYSTEMS: Systems reviewed with positive findings, see HPI. VITAL SIGNS: Temperature 99.2, blood pressure 156/78, pulse 69, respirations 20, 98 on room air. LABORATORY DATA: WBC 9.1, hemoglobin 11.4, hematocrit 34.4, platelets of 216. PT is 14.9, INR is 1. 38. Sodium 138, K is 4.1, BUN is 14, creatinine is 1.3. His total bilirubin is 0.7, AST 23, ALT 28, alk phos is 33. Chest x-ray was done today and it did show moderate cardiomegaly status post CABG. There is stable position of the left-sided unipolar permanent pacing device. [facility]. PHYSICAL EXAMINATION: HEENT: Sclera is anicteric. NECK: Supple. CARDIAC: S1, S2. LUNGS: Sounds with decreased breath sounds. No rales or wheeze. ABDOMEN: With bowel sounds, soft, decreased distention, some epigastric tenderness. No rebound or g uarding. EXTREMITIES: No edema. NEUROLOGIC: Awake, alert, and oriented. ASSESSMENT: A 71-year-old male with history of atrial fibrillation on Coumadin, hypertension, histor y of diabetes mellitus, Martinez's esophagus/esophageal erosions and colon polyps. Came to the hospit al with complaints of abdominal pain. Looks like patient had either small-bowel obstruction versus i leus status post nasogastric tube. The patient is passing gas and having bowel movement. Other vance rbidities are pacemaker, coronary artery bypass graft status post stenting, history of diabetes negin sanon. PLAN: Plan for endoscopy when optimal. Currently, patient has been started on a clear liquid diet. The patient is on heparin subQ q.8 and start on Coumadin. He is going to be getting a Dulcolax supp ository as per surgery. Continue PPI. The patient was seen and case discussed with Dr. Tolentino. Joselyn GONZALEZ cc: [id number] TT: 12/06/2016 15:31:14 Confirmation # [id number] Dictation # [id number]
--- NOTE | 2016-12-06 20:26 | PN ---
DATE: 12/06/2016 REFERRING PHYSICIAN: Dr. Corbin. SUBJECTIVE: He is out of bed to chair, feels better, was started on clear liquid diet, tolerated it well. Did have a bowel movement. No vomiting, no cough, no shortness of breath. Abdominal pain is better. No leg pain or leg swelling. OBJECTIVE: GENERAL: No acute distress. VITAL SIGNS: Temperature is 99.5, heart rate 63, respiratory rate is 20, blood pressure 139/68, puls e ox 97% on room air. HEENT: Moist mucous membranes. Crowded airway. Mallampati score is 4. NECK: Supple. No JVD. LUNGS: Has a fair airflow with few rhonchi. HEART: S1 and S2. ABDOMEN: Obese, soft, not much tenderness. EXTREMITIES: There is no edema. NEUROLOGIC: Awake, alert, follows simple command. MEDICATIONS: He is on Cepacol lozenges q. 2 hours p.r.n., Coumadin 10 mg which is on hold, getting IV fluids lactate ringer ____ mL per hours, Protonix 40 mg q. 12 hours. LABORATORY DATA: Shows hemoglobin 11.4, hematocrit 34.4, WBC 9.1, platelet count is 216. INR today is 1.38. Sodium 138, potassium 4.1, chloride 105, bicarbonate 27, BUN 14, creatinine 1.3, glucose 10 4. Hemoglobin A1c 6.0, calcium 8.7, AST 23, ALT 28, alkaline phosphatase is 33, albumin is 3.4. Cho lesterol 129. TSH 4.0. Microbiology: Blood cultures have been negative. Chest x-ray done today sh ows persistent moderate cardiomegaly. Had abdominal x-ray done today, no active disease reported. IMPRESSION AND PLAN: Resolving small-bowel obstruction. Nasogastric tube is out, obstructive sleep apnea syndrome, coronary artery disease, history of coronary bypass surgery, hypertension, hypothyroi d, atrial fibrillation and diabetes. Pulmonary point of view Is doing okay. Anticoagulation is on h old. If there is no surgery planned, we should start patient on anticoagulation. We will discontinu e subQ heparin, discontinue Coumadin for now and will give him weight based Lovenox. Sleep apnea pre caution. If any procedure done, needs close cardiopulmonary monitoring while sedated or postanesthes ia. Thank you and will follow with you. John Steele MD cc: [facility] TT: 12/06/2016 20:25:41 Confirmation # [id number] Dictation # [id number] jn
[2016-12-06] MEDS: Enoxaparin 100 mg Syringe SC SCH (22:11)
--- NOTE | 2016-12-07 06:52 | CON ---
DATE: 12/06/2016 This patient was seen and evaluated earlier today. This is an addendum to the GI consultation report dictated by Joselyn Amezcua APN. The patient admitted with abdominal pain, diarrhea. The patient did have esophageal ulcerations and Martinez's esophagus. PHYSICAL EXAMINATION: ABDOMEN: Soft. There is no mass palpable. Mild tenderness present in the epigastric region on deep palpation. The patient's previous EGD and colonoscopy findings are reviewed. Hemoglobin remains stable as hemoglobin is 11.4. The patient is afebrile, He has been on Coumadin. Restarted the Coumadin. INR today is 1.38. The patient is also on heparin. It is reasonable to continue the PPI, consider repeating the upper GI endoscopy in a.m. Thank you very much for allowing us to participate in the care of the patient. Stacey Tolentino MD cc: [id number] TT: 12/07/2016 06:51:57 Confirmation # [id number] Dictation # [id number] MTDD
[2016-12-07 07:25] LABS: HEMATOCRIT 34.7 % (42.0-52.0); MEAN CELL VOLUME 91.8 fL (80.0-105.0); MEAN CORPUSCULAR HEMOGLOBIN 30.4 pg (25.0-35.0); MEAN CORPUSCULAR HGB CONC 33.1 g/dl (31.0-37.0); MEAN PLATELET VOLUME 9.6 fl (7.0-11.0); RED CELL DISTRIBUTION WIDTH 13.8 % (11.5-14.5); WHITE BLOOD COUNT 7.2 10^3/ul (4.5-11.0)
[2016-12-07 07:29] LABS: INR 1.16 (0.93-1.08)
[2016-12-07] MEDS: Insulin Reg-LOW-Coverage SC SCH ×4 (07:30→22:06)
[2016-12-07 07:58] LABS: BLOOD UREA NITROGEN 10 mg/dL (7-21); CARBON DIOXIDE 27 mmol/L (21-33); CHLORIDE 106 mmol/L (98-107); GFR AFRICAN-AMERICAN > 60; GLUCOSE,RANDOM 103 mg/dL (70-110); POTASSIUM 3.9 mmol/L (3.6-5.0); SODIUM 138 mmol/L (132-148)
[2016-12-07] MEDS: Enoxaparin 100 mg Syringe SC SCH ×2 (08:00→22:12)
[2016-12-07] MEDS ORDERED: Phenylephrine 10 mg/ml Inj ONE (08:02)
[2016-12-07] MEDS ORDERED: Propofol 10 mg/ml Inj (20 ML) ONE (08:02)
[2016-12-07] MEDS ORDERED: ePHEDrine 50 mg/ml Inj ONE (08:02)
[2016-12-07] MEDS ORDERED: Benzocaine/Butamben/Tetracai 14-2-2% TOP Spray TOP ONE (08:05)
--- NOTE | 2016-12-07 08:10 | CP.PCM.PN ---
Subjective - Date & Time of Evaluation Date of Evaluation: 12/07/16 Time of Evaluation: 07:45 - Subjective Subjective: General Surgery progress Note for Dr. Gomez Patient seen and examined at bedside. No acute events overnight. Patient reports of passing gas and improving distention. Patient is aware of his endoscopy procedure today and was made NPO after midnight. Denies having headache, weakness, fever, chill, shortness of breath, nausea or vomiting. Objective - Vital Signs/Intake and Output Vital Signs (last 24 hours): Temp Pulse Resp BP Pulse Ox 98.2 F 63 18 139/68 97 12/07/16 00:00 12/06/16 16:00 12/06/16 16:00 12/06/16 16:00 12/06/16 16:00 Intake and Output: 12/07/16 12/07/16 06:59 18:59 Intake Total 1776 Output Total 2050 Balance -274 - Medications Medications: Current Medications Benzocaine/Menthol (Cepacol Sore Throat) 1 caron MT Q2H PRN PRN Reason: Sore Throat Last Admin: 12/05/16 21:35 Dose: 1 caron Enoxaparin Sodium (Lovenox) 100 mg SC Q12H DYLON PRN Reason: Protocol Last Admin: 12/06/16 22:11 Dose: Not Given Lactated Ringer's (Lactated Ringer's) 1,000 mls @ 83 mls/hr IV .Q12H3M [facility] Last Admin: 12/06/16 20:15 Dose: 83 mls/hr Insulin Human Regular (Humulin R Low) 0 units SC ACHS DYLON PRN Reason: Protocol Last Admin: 12/06/16 22:11 Dose: Not Given Pantoprazole Sodium (Protonix Inj) 40 mg IVP Q12 [facility] Last Admin: 12/06/16 21:41 Dose: 40 mg - Labs Labs: 12/07/16 07:00 12/07/16 07:00 PT 12.5 Seconds (9.9-11.8) H 12/07/16 07:00 INR 1.16 (0.93-1.08) H 12/07/16 07:00 APTT 34.5 Seconds (23.7-30.8) H 12/04/16 01:35 - Constitutional Appears: Well, Non-toxic, No Acute Distress - Head Exam Head Exam: ATRAUMATIC, NORMOCEPHALIC - Eye Exam Eye Exam: EOMI, Normal appearance - ENT Exam ENT Exam: Mucous Membranes Moist - Neck Exam Neck Exam: Normal Inspection - Respiratory Exam Respiratory Exam: Clear to Ausculation Bilateral, NORMAL BREATHING PATTERN. absent: Respiratory Distress - Cardiovascular Exam Cardiovascular Exam: REGULAR RHYTHM, +S1, +S2. absent: Murmur - GI/Abdominal Exam GI & Abdominal Exam: Soft, Normal Bowel Sounds. absent: Tenderness - Extremities Exam Extremities Exam: Normal Inspection - Neurological Exam Neurological Exam: Alert, Awake, Oriented x3 - Psychiatric Exam Psychiatric exam: Normal Affect, Normal Mood - Skin Skin Exam: Dry, Intact, Warm Assessment and Plan - Assessment and Plan (Free Text) Assessment: 71 year old male with past medical history of hypertension, hypothyroidism, atrial fibrillation, DM, CABG s/p stenting, and ventricular pacer presents with abdominal pain was found to have SBO Plan: Abdominal pain Ileus vs SBO -Endoscopy today -Cont serial abd exams -Medical management per primary team. -C/w SCDs & protonix -Encouraged to ambulate as tolerated D/w with attending
[2016-12-07] MEDS ORDERED: Barium Sulfate Susp 2.1% w/v, 2.0% w/w 450 mL Bottle PO ONE (11:55)
--- NOTE | 2016-12-07 17:09 | CT ---
PROCEDURE: CT Abdomen and Pelvis with contrast HISTORY: FU small bowel distention COMPARISON: 12/04/2016. CT abdomen and pelvis. TECHNIQUE: Oral contrast only. Radiation dose: Total exam DLP = 1164.36 mGy-cm. This CT exam was performed using one or more of the following dose reduction techniques: Automated exposure control, adjustment of the mA and/or kV according to patient size, and/or use of iterative reconstruction technique. FINDINGS: LOWER THORAX: Trace pleural effusions. No suspicious pulmonary nodules or masses. Incompletely visualized enlarged heart. No pericardial abnormalities. LIVER: Unremarkable. No gross lesion or ductal dilatation. GALLBLADDER AND BILE DUCTS: Cholelithiasis without CT evidence of acute cholecystitis. PANCREAS: Unremarkable. No gross lesion or ductal dilatation. SPLEEN: Unremarkable. ADRENALS: Unremarkable. No mass. KIDNEYS AND URETERS: Unremarkable. No hydronephrosis. No solid mass. VASCULATURE: Unremarkable. No aortic aneurysm. BOWEL: The stomach is no longer dilated. Dilated proximal loops of small bowel apparent on the previous study have also improved. APPENDIX: Normal appendix. PERITONEUM: Unremarkable. No free fluid. No free air. LYMPH NODES: Unremarkable. No enlarged lymph nodes. BLADDER: Unremarkable. REPRODUCTIVE: Unremarkable. BONES: No acute fracture. OTHER FINDINGS: None. IMPRESSION: Interval improvement an small-bowel obstruction comment distention of the stomach has resolved and small bowel loops have now returned to normal caliber. No acute findings. Sign rib
--- NOTE | 2016-12-07 17:13 | PN ---
DATE: 12/07/2016 REFERRING PHYSICIAN: Dr. Corbin. SUBJECTIVE: He is out of bed to chair, status post endoscopy. Was told has some varices. He is kristen erating clear liquid diet well. No nausea, no vomiting, no diarrhea at present time. Abdominal pain is improved. No leg pain or leg swelling. OBJECTIVE: GENERAL: No acute distress. VITAL SIGNS: Temp is 98, heart rate is 69, respiratory rate is 20, blood pressure 152/77, pulse ox 9 4% on nasal cannula. HEENT: Moist mucous membrane. Crowded airway. Mallampati score is 4. NECK: Supple. No JVD. LUNGS: Have fair airflow with a few rhonchi. HEART: S1, S2. ABDOMEN: Soft. Mild tenderness. EXTREMITIES: There is no edema. NEUROLOGIC: Awake, alert, follows simple command. MEDICATIONS: Cepacol lozenges q. 12 hours p.r.n., Coumadin 5 mg will be given today, insulin coverag e, lactated Ringers 75 mL per hour, Lovenox 100 mg q. 12 hours, Protonix 40 mg q. 12 hours. LABORATORY DATA: Shows hemoglobin 11.5, hematocrit 34.7, WBC 7.2, platelet is 208. INR 1.16. Sodiu m 138, potassium 3.9, chloride 106, bicarbonate 27, BUN 10, creatinine 1.2, glucose 103, calcium is 9 .0. MICROBIOLOGY: Blood culture has been negative. IMPRESSION AND PLAN: Resolving small-bowel obstruction, obstructive sleep apnea syndrome, coronary a rtery disease, history of coronary artery bypass surgery, hypertension, hypothyroid, atrial fibrillat ion and diabetes. Case discussed with nursing staff. I spoke to GI. The patient was cleared for an ticoagulation, so Lovenox 100 mg subQ twice a day is being started and Coumadin 5 mg. Sleep apnea pr ecaution. Keep head at 45 degrees. Fall precaution. Follow up INR in the morning. Thank you, and will follow with you. John Steele MD cc: [id number] TT: 12/07/2016 17:12:58 Confirmation # [id number] Dictation # [id number] mn
--- NOTE | 2016-12-07 19:44 | PN ---
DATE: 12/07/2016 SUBJECTIVE: The patient was seen and examined on the bedside, sitting on the chair. No NG tube. No nausea, vomiting, or diarrhea. Status post endoscopy. Was told had some varices. Gave liquid food, tolerated very well. Now will give him a soft dinner. If will tolerate, will make discharge planning. No abdominal pain, it is improving. According to him, he still has inflammation inside and feeling bioated , but getting better. No swelling of the legs. No fever, no chills. PHYSICAL EXAMINATION: VITAL SIGNS: Temperature 98, heart rate 69, respirations 20, blood pressure 152 /77, pulse oximetry 94% on nasal cannula. HEAD: Normocephalic, atraumatic. EYES: PERRLA. Extraocular muscles intact. Conjunctivae clear. Nose patent. Mucous membranes moist. NECK: Supple. No carotid bruit, JVD or thyromegaly. LUNGS: Has a fair airflow with a few rhonchi. HEART: S1, S2 positive. ABDOMEN: Soft, mild tenderness. EXTREMITIES: No edema, no cyanosis. NEUROLOGIC: The patient is awake, alert, follows simple commands. MEDICATIONS: Cepacol lozenges, Coumadin, insulin, lactate Ringer, Lovenox, Protonix. LABORATORY DATA: Hemoglobin 11.5, hematocrit 34.7, white blood cell 7.2, platelets 208. INR 1.16. Sodium 138, potassium 3.9, BUN 10, creatinine 1.2, glucose 103, calcium 9.0. ASSESSMENT AND PLAN: The patient is a 71-year-old male with resolving small- bowel obstruction, obstructive sleep apnea syndrome, coronary artery disease, status post open heart surgery, hypertension, hypothyroidism, atrial fibrillation, diabetes mellitus, obesity, gastroesophageal reflux disease and dyspepsia. Because the patient was n.p.o. for a couple of days, Coumadin was not given. Restarted Coumadin, now bridging with heparin. Dr. Steele put him on Lovenox subcutaneously. Sleep apnea precautions. Out of bed, physical therapy, gastrointestinal and deep vein thrombosis prophylaxis. I reviewed the CAT scan of the abdomen and pelvis; according to Dr. Garcia, interval improvement in small-bowel obstruction and distention of the stomach has resolved, small bowel loops have returned to normal caliber and no acute findings. Seen by Dr. Steele and Dr. Tolentino. did esophagogastroduodenoscopy with biopsy, diagnosis is C1 M2 Martinez esophagus, 1 cm hiatal hernia. GI prophylaxis. Will repeat labs. Will followup. Holly Corbin MD cc: [id number] TT: 12/07/2016 19:42:59 Confirmation # [id number] Dictation # [id number] dn TEMITOPE
[2016-12-07 21:14] LABS: INR 1.11 (0.93-1.08)
--- NOTE | 2016-12-07 22:55 | CP.PCM.PCO ---
Physician Communication Note - Physician Communication Note Physician Communication Note: Resolved SBO/+Cholelithiasis-No Surgery kimberley now
[2016-12-08 07:55] LABS: INR 1.13 (0.93-1.08)
[2016-12-08] MEDS: Insulin Reg-LOW-Coverage SC SCH ×4 (08:22→21:38)
[2016-12-08] MEDS: Enoxaparin 100 mg Syringe SC SCH ×2 (09:18→20:09)
[2016-12-08] MEDS: Lactated Ringer's 1,000 ML IV SCH (09:25)
--- NOTE | 2016-12-08 10:28 | PN ---
DATE: 12/08/2016 GI FOLLOWUP NOTE Seen and examined at the bedside this morning. 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 Biopsies obtained . He was started back on his Coumadin and Lovenox yesterday. The patient was sent for CT scan of abdomen and pelvis with oral contrast to follow up small-bowel di stention, and this does report interval improvement of small-bowel obstruction. The small-bowel loop s have now returned to normal caliber. No acute findings. PHYSICAL EXAMINATION: HEENT: Sclerae are anicteric. NECK: Supple. CARDIAC: S1, S2. LUNGS: With decreased breath sounds, but good aeration. No rales or wheeze. ABDOMEN: With bowel sounds, softly distended, nontender. No rebound or guarding. ASSESSMENT: Status post small-bowel obstruction. The patient with history of esophageal erosions, s tatus post endoscopy, found to have a short-segment Martinez's esophagus and gastric antral vascular e ctasia, status post biopsy. We did do a repeat CAT scan to follow up the small-bowel distention, whi ch has resolved. He is noted to have gallstones on CT scan with no evidence of acute cholecystitis. His other comorbidities are coronary artery disease, status post open heart surgery, atrial fibrillat ion, diabetes mellitus, and gastroesophageal reflux disease. PLAN: Follow up endoscopy biopsies. He is back on Coumadin and Lovenox for bridging. Continue PPI. The patient is currently on a clear liquid. We will consider advancing his diet. The patient was seen and discussed with Dr. Tolentino. Joselyn GONZALEZ cc: [id number] TT: 12/08/2016 10:27:23 Confirmation # [id number] Dictation # [id number] adolph
--- NOTE | 2016-12-08 16:03 | PN ---
DATE: 12/08/2016 REFERRING PHYSICIAN: Dr. Corbin. SUBJECTIVE: He is out of bed to chair. Night was unremarkable. Feels better. Refused to use CPAP. No chest pain, no nausea, no vomiting. Abdominal pain is better. No leg pain or leg swelling. OBJECTIVE: GENERAL: No acute distress. VITAL SIGNS: Temperature is 98, heart rate is 67, respiratory rate is 20, blood pressure 140/71, pul se ox 95% on room air. HEENT: Moist mucous membrane. Crowded airway. Mallampati score is 4. NECK: Supple. No JVD. LUNGS: Have fair airflow with a few rhonchi. HEART: S1, S2. ABDOMEN: Soft, nontender. No organomegaly. EXTREMITIES: There is no edema. NEUROLOGIC: Awake, alert, follows simple command. MEDICATIONS: Cepacol lozenges q. 2 hours p.r.n., Coumadin 110 mg will be given tonight, insulin cove rage, Lactated Ringer 75 mL per hour, Lovenox 100 mg subQ q. 12 hours, Protonix 40 mg daily. LABORATORY DATA: Shows INR today 1.13, glucose is 93. Microbiology: Blood cultures have been negat carlos. Repeat CT of the abdomen is unremarkable. IMPRESSION AND PLAN: Resolved small-bowel obstruction, obstructive sleep apnea syndrome, coronary ar giuseppe disease, history of coronary artery bypass surgery, hypertension, hypothyroid, atrial fibrillati on, diabetes. Medically and pulmonary doing well. Sleep apnea precautions. Careful with sedation. On Lovenox. Coumadin has been started. INR ordered for the morning. The patient either could be d ischarged home on subQ Lovenox and switch over to Coumadin as an outpatient and follow with Dr. Jacinto gaming, or he can do TRCU. Will continue Lovenox and convert to Coumadin. Thank you, and will follow with you. John Steele MD cc: [id number] TT: 12/08/2016 16:02:36 Confirmation # [id number] Dictation # [id number] mn
--- NOTE | 2016-12-08 19:09 | PN ---
DATE: 12/08/2016 ADDENDUM This is an addendum to the GI progress report dictated by Joselyn Amezcua APN. The patient did have a CA T scan done today and it was reviewed. On CAT scan, there is no obstruction noticed. The patient do es have gallstones. The patient does have Martinez's esophagus, but no ulcerations noticed. We will advance the diet and follow the patient. Thank you very much for allowing us to participate in the care of the patient. Stacey Tolentino MD cc: [id number] TT: 12/08/2016 19:07:44 Confirmation # [id number] Dictation # [id number] leander
--- NOTE | 2016-12-09 07:32 | PN ---
DATE: 12/08/2016 SUBJECTIVE: The patient was seen and examined on 12/08/16, sitting on the chair. Still having a little bit gassy stomach. Otherwise, no nausea, vomiting, or diarrhea. No hematuria or hematochezia. No chest pain, no palpitation. Refuses to use the CPAP. No fever, no chills. No swelling of the legs. PHYSICAL EXAMINATION: VITAL SIGNS: Temperature 98, heart rate 67, respiratory rate 20, blood pressure 140/71, and pulse oximetry 95% on room air. HEENT: Head normocephalic, atraumatic. Eyes: PERRLA. Extraocular muscles intact. Conjunctivae clear. Nose patent. Mucous membranes moist. NECK: Supple. No carotid bruit, JVD, or thyromegaly. CHEST: Bilaterally symmetrical. HEART: S1, S2 positive. LUNGS: Clear to auscultation. ABDOMEN: Soft. Bowel sounds positive. No organomegaly. EXTREMITIES: No edema, no cyanosis. NEUROLOGIC: The patient is awake, alert and moving all 4 extremities. No focal deficits. MEDICATIONS: Cepacol lozenges, Coumadin, insulin coverage, lactated Ringer, Lovenox, Protonix. LABORATORY DATA: INR is 1.13. labs noted ASSESSMENT AND PLAN: The patient had resolved small-bowel obstruction, obstructive sleep apnea syndrome, coronary artery disease, obesity, history of coronary artery bypass surgery, hypertension, hypothyroidism, atrial fibrillation. Gastrointestinal and deep venous thrombosis prophylaxis. Repeat labs. We will follow up. Holly Corbin MD cc: [id number] TT: 12/09/2016 07:31:37 Confirmation # [id number] Dictation # [id number] tn [id number]
[2016-12-09] MEDS: Insulin Reg-LOW-Coverage SC SCH ×4 (08:04→22:13)
[2016-12-09 08:23] LABS: INR 1.43 (0.93-1.08)
[2016-12-09] MEDS: Enoxaparin 100 mg Syringe SC SCH ×2 (08:33→22:14)
--- NOTE | 2016-12-09 13:04 | PN ---
DATE: 12/09/2016 Seen and examined at the bedside earlier today. The patient is tolerating his diet and did have gerald l movement. No reports of nausea, vomiting or abdominal pain. VITAL SIGNS: Temperature is 98.5, blood pressure 159/79, pulse 62, respirations 20, 94% room air. LABORATORIES: Noted for today is PT 15.4, INR is 1.43. POC glucose is at 105. PHYSICAL EXAMINATION: HEENT: Sclera is anicteric. NECK: Supple. CARDIAC: S1, S2. LUNG SOUNDS: With decreased breath sounds, but good aeration. No rales or wheeze. ABDOMEN: With bowel sounds, soft, less distended, no tenderness on palpation. EXTREMITIES: No edema. NEUROLOGIC: Awake, alert, oriented. ASSESSMENT: This is a 71-year-old male with a history of hypertension, hypothyroidism, atrial fibril lation and diabetes, came with abdominal pain, distention, found to have dilated small bowel, status post small bowel obstruction. 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 Biopsies were obtained. Repeat CAT scan was done and the small bowel distention is resolved. He is noted to have gallstones on CT with no evidence of acute cholecystitis. He also has history of coronary artery disease with open heart surgery and gastroesophageal reflux disease. PLAN: Continue his diet as tolerated. The patient remains on Coumadin and Lovenox. Continue PPI. He is on Protonix 40 q. 12 and follow up his endoscopic. The patient did have biopsy, waiting for bi opsies. The patient was seen and case discussed with Dr. Tolentino. Joselyn GONZALEZ cc: [id number] TT: 12/09/2016 13:03:50 Confirmation # [id number] Dictation # [id number] en
[2016-12-09] MEDS: Lactated Ringer's 1,000 ML IV SCH (15:00)
[2016-12-09 17:33] VITALS: TEMP 98.3; O2SAT 95
--- NOTE | 2016-12-09 18:22 | PN ---
DATE: 12/09/2016 REFERRING PHYSICIAN: Dr. Corbin. SUBJECTIVE: He is out of bed to chair. Night was unremarkable. Does not like the CPAP. Short of br eath with exertion. No chest pain, no nausea, no vomiting, no diarrhea. No leg pain or leg swelling . OBJECTIVE: GENERAL: No acute distress. VITAL SIGNS: Temperature is 98, heart rate 62, respiratory rate is 20, blood pressure 159/79, pulse ox 94% on room air. HEENT: Moist mucous membrane. Crowded oral cavity. NECK: Supple. No JVD. LUNGS: Have a fair airflow with few rhonchi. HEART: S1 and S2. ABDOMEN: Soft, nontender. No organomegaly. EXTREMITIES: There is no edema. NEUROLOGIC: Awake, alert, follows simple command. MEDICATIONS: He is on Cepacol lozenges p.r.n., Coumadin 10 mg will be given today, insulin coverage, Lactated Ringer's 75 mL per hour, Lovenox 100 mg subQ twice a day, Protonix 40 mg daily. LABORATORY DATA: Shows INR 1.43. Blood sugar is 105. MICROBIOLOGY: Blood culture has been negative. IMPRESSION AND PLAN: Resolved small-bowel obstruction, obstructive sleep apnea syndrome, coronary ar giuseppe disease, coronary artery bypass surgery, hypertension, hypothyroid, atrial fibrillation, diabete s. Medically stable. I spoke to Dr. Corbin this morning. Lovenox is switched to Coumadin. The pat ient does not know how to inject and does not want to go home on injectable. Consider transitional c are unit. Fall precautions. Sleep apnea precaution. Follow up INR in the morning. Thank you and we will follow with you. John Steele MD cc: [id number] TT: 12/09/2016 18:22:06 Confirmation # [id number] Dictation # [id number] ln
--- NOTE | 2016-12-09 22:59 | PN ---
DATE: 12/09/2016 ADDENDUM This patient was seen and evaluated earlier today. This is an addendum to the GI progress report dictated by Joselyn Amezcua APN. The patient is tolerating the diet. The patient did have a history of Martinez's esophagus with ulcerations in the past. Repeat EGD showed healed ulcers but the patient did have Martinez's esophagus. The pathology was reviewed. It is reported as Martinez's esophagus but no dysplasia. The patient had a partial small-bowel obstruction improved. Repeat CT was also reviewed. The anticoagulation has been resumed. Thank you very much for allowing us to participate in the care of the patient. Stacey Tolentino MD cc: [id number] TT: 12/09/2016 22:58:44 Confirmation # [id number] Dictation # [id number] ln MTDD
[2016-12-10 07:51] LABS: INR 2.13 (0.93-1.08)
[2016-12-10] MEDS: Insulin Reg-LOW-Coverage SC SCH ×2 (08:04→12:13)
[2016-12-10 08:42] VITALS: BP 155/76; PULSE 70; RESP 19
[2016-12-10] MEDS: Enoxaparin 100 mg Syringe SC SCH (10:29)
--- NOTE | 2016-12-10 10:37 | PN ---
DATE: 12/10/2016 The patient was seen and examined this morning at the bedside. He was eating breakfast and toleratin g. No complaints of nausea, vomiting or abdominal pain. He is moving his bowels and the belly is le ss distended. No acute overnight events reported. VITAL SIGNS: Temperature is 98.3, blood pressure is 155/76, pulse 70, respirations 19, 95% room air. PT is 23.0, INR is 2.13. PHYSICAL EXAMINATION: HEENT: Sclera is anicteric. NECK: Supple. CARDIAC: S1, S2. LUNG SOUNDS: With decreased breath sounds, but good air entry, no rales or wheeze. ABDOMEN: With bowel sounds, soft, nontender. No rebound or guarding. EXTREMITIES: No edema. ASSESSMENT: A 71-year-old male with history of hypertension, atrial fibrillation, diabetes, came wit h abdominal pain and distention, was found to have dilated small bowel, it was like a small bowel obs truction which is now resolved. The patient status post endoscopy, found to have Martinez's esophagus and . Biopsies were reviewed and it is positive for intestinal metaplasia, but no dysplasia. Gastric biopsies were negative for Helicobacter pylori, did show chronic inflammation. This was disc ussed with the patient. History of coronary artery disease and gastroesophageal reflux disease. PLAN: Continue the diet as tolerated. Discussed with the patient. Informed the patient of his biop sy reports. Should continue his Protonix. Right now, he is on 40 q. 12. The patient is back on his Coumadin and he is also on Lovenox. The patient is on IV fluids LR. The patient is eating and tole rating and drinking. We will discontinue his IV fluids. The patient was seen and case discussed with Dr. Tolention. Joselyn GONZALEZ cc: 451 TT: 12/10/2016 10:36:33 Confirmation # [id number] Dictation # [id number] en
--- NOTE | 2016-12-10 19:08 | PN ---
DATE: 12/10/2016 REFERRING PHYSICIAN: Dr. Corbin. SUBJECTIVE: He is out of bed to chair, getting dressed to go home, feels better. No headache, no rh initis, no nausea, no vomiting or diarrhea. No leg pain or leg swelling. OBJECTIVE: GENERAL: No acute distress. VITAL SIGNS: Temperature is 98, heart rate is 70, respiratory rate is 20, blood pressure 155/76, pul se ox 95% on room air. HEENT: Moist mucous membranes. No ulcer or oral thrush noted. NECK: Supple. No JVD. LUNGS: Has a fair airflow with few rhonchi. HEART: S1 and S2. ABDOMEN: Soft, nontender. No organomegaly. EXTREMITIES: There is no edema. NEUROLOGIC: Awake, alert, follows simple commands. MEDICATIONS: He is on Cepacol lozenges on p.r.n. basis, Coumadin 10 mg given yesterday, Lovenox is d iscontinued, Protonix 40 mg daily. LABORATORY DATA: Shows INR today is 2.13, glucose was 128. IMPRESSION AND PLAN: Resolved small-bowel obstruction, obstructive sleep apnea syndrome, coronary ar giuseppe disease, history of coronary bypass surgery, hypertension, hypothyroid, atrial fibrillation, aretha betes. Did well. His small-bowel obstruction has resolved. Cleared by surgery. Switched over to C oumadin from Lovenox. The patient is advised to take Coumadin 5 mg tonight. Follow up with Dr. Smooth holcomb by Tuesday and Tuesday. Encouraged and educated him about sleep apnea syndrome. John Steele MD cc: [id number] TT: 12/10/2016 19:06:57 Confirmation # [id number] Dictation # [id number] ln
--- NOTE | 2017-01-31 09:07 | DS ---
CHIEF COMPLAINT: Abdominal pain. HISTORY OF PRESENT ILLNESS: The patient is a 71-year-old male with past medical history of atrial fibrillation, CABG, hypertension, hypercholesterolemia, diabetes mellitus, came to the emergency room with sharp abdominal pain. The patient states that pain begins as intermittent and has slowly progressive consistent pain. The patient has a history of one episode of nonbloody diarrhea accompanied with dizziness. We admitted the patient, did CAT scan of abdomen and pelvis. The patient was seen by Dr. Tolentino, GI; Dr. Steele; Dr. Brown, security dispatcher, improved, started on food, tolerated, advance is as tolerated. Discharged home. Follow up with primary care physician and GI. PAST MEDICAL HISTORY: Hypertension, history of KS, has pacemaker . diabetes mellitus type 2, facial skin cancer, open heart surgery, pacemaker. FAMILY HISTORY: Father and mother noncontributory. HABITS: No smoking, no drug, no ethanol. ALLERGIES: THE PATIENT IS NOT ALLERGIC TO ANY MEDICATIONS. HOME MEDICATIONS: Reviewed by me. REVIEW OF SYSTEMS: The patient was seen and examined on the bedside, looking comfortable, out of bed. No headache, no rhinitis. No nausea, vomiting, diarrhea. No swelling of the leg. PHYSICAL EXAMINATION: VITAL SIGNS: Temperature 98, heart rate 70, respiratory rate 20, blood pressure 150/76, pulse oxymetry 95% on room air. HEENT: Head is normocephalic, atraumatic. Eyes; PERRLA. Extraocular motion intact. Conjunctivae clear. Nose patent. Mucous membrane moist. NECK: Supple. No carotid bruits, JVD, or thyromegaly. CHEST: Bilateral symmetrical. HEART: S1,S2 positive. LUNGS: Clear to auscultation. ABDOMEN: Soft. Bowel sounds are present. No organomegaly. EXTREMITIES: No edema and no cyanosis. NEUROLOGIC: The patient is awake and alert. Moving all four extremities. No focal deficits. MEDICATIONS: Cepacol lozenges, Coumadin, Lovenox, Protonix. LABORATORY DATA: INR is 2.13, glucose 128. White blood cell 7.2, hemoglobin 11.5, hematocrit 34.7, platelet 208. 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 are negative for Helicobacter pylori, shows chronic inflammation; history of coronary artery disease; gastroesophageal reflux disease, GI surgeon is on the case; obstructive sleep apnea syndrome; history of coronary artery bypass; hypothyroidism, atrial fibrillation, cleared by surgery and GI, switched from Lovenox to Coumadin. Discharge home, advised to lose weight. Prescription medication given. Holly Corbin MD [email or web address]
== END 2016-12-10 15:08 | disposition home or self-care (01) | DRG 390 ==
LOC: ED 01:09 → EROBSV 01:54 → ERH 06:25 → 3RSO 07:33 → OBSVTOIN 12:25 → 3RSO 16:11 → OBSVTOIN 12-05 17:56 → INTOOBSV 12-05 17:56 → 3RSO 12-07 21:07
PROVIDERS: ADMIT Internal Medicine; ATTEND Internal Medicine
PROC: 0DB68ZX Excision of Stomach, Via Natural or Artificial Opening Endoscopic, Diagnostic (ICD-10-PCS; 2016-12-07)
PROC: 0DB58ZX Excision of Esophagus, Via Natural or Artificial Opening Endoscopic, Diagnostic (ICD-10-PCS; principal; 2016-12-07 11:00)
DX: K56.60 Unspecified intestinal obstruction (principal); K22.70 Barrett's esophagus without dysplasia; K31.819 Angiodysplasia of stomach and duodenum without bleeding; I48.91 Unspecified atrial fibrillation; E11.65 Type 2 diabetes mellitus with hyperglycemia; I10 Essential (primary) hypertension; E78.00 Pure hypercholesterolemia, unspecified; D64.9 Anemia, unspecified; N40.0 Benign prostatic hyperplasia without lower urinary tract symptoms; I25.10 Atherosclerotic heart disease of native coronary artery without angina pectoris; E78.5 Hyperlipidemia, unspecified; K29.70 Gastritis, unspecified, without bleeding; E03.9 Hypothyroidism, unspecified; G47.33 Obstructive sleep apnea (adult) (pediatric); N28.9 Disorder of kidney and ureter, unspecified; K21.9 Gastro-esophageal reflux disease without esophagitis; K44.9 Diaphragmatic hernia without obstruction or gangrene; K80.20 Calculus of gallbladder without cholecystitis without obstruction; E66.9 Obesity, unspecified; Z68.37 Body mass index [BMI] 37.0-37.9, adult; Z91.19 Patient's noncompliance with other medical treatment and regimen; I25.2 Old myocardial infarction; Z86.73 Personal history of transient ischemic attack (TIA), and cerebral infarction without residual deficits; Z85.828 Personal history of other malignant neoplasm of skin; Z79.01 Long term (current) use of anticoagulants; Z95.1 Presence of aortocoronary bypass graft; Z86.010 Personal history of colon polyps; Z87.891 Personal history of nicotine dependence; Z95.0 Presence of cardiac pacemaker; Z95.5 Presence of coronary angioplasty implant and graft

== ENCOUNTER 2017-06-26 18:33 | Inpatient (IN) | payer OTHER ==
[2017-06-26] MEDS ORDERED: Sodium Chloride 0.9% 1,000 ML IV STA (18:58)
--- NOTE | 2017-06-26 18:59 | ED PDOC ---
Arrival/HPI - General Chief Complaint: Abdominal Pain Time Seen by Provider: 06/26/17 18:49 Historian: Family (Son) - History of Present Illness Narrative History of Present Illness (Text): 06/26/17 18:58 Tk Woodard is a 71 year old male, whose past medical history includes Afib, CABG, Hypertension, Hyperlipidemia, diabetes, and stroke, presents to the Emergency department accompanied by son complaining of abdominal pain since today. Son informs patient has been feeling sharp epigastric pain associated with dizziness, nausea and lightheadedness since today. Son also informs patient experiencing diarrhea for two days and "yellower than usual" urine. Son states patient was seen in the Emergency department on 12/24/16 for similar symptoms. Son denies any chest pain, shortness of breath, vomiting, fevers, chills, bloody stool, hematuria or any other complaints. Time/Duration: 24 hours Symptom Course: Unchanged Quality: Aching Activities at Onset: Light Context: Home Past Medical History - Provider Review Nursing Documentation Reviewed: Yes - Infectious Disease Hx of Infectious Diseases: None - Tetanus Immunization Tetanus Immunization: Unknown - Cardiac Hx Cardiac Disorders: Yes (mi x1) Hx CA: Yes (x1) Other/Comment: open heart triple with valve repair and replace 2011, pacemaker battery change 2010, josh - Neurological HX Cerebrovascular Accident: Yes (x1) - Endocrine/Metabolic Hx Diabetes Mellitus Type 2: Yes Hx Hypothyroidism: Yes - Hematological/Oncological Hx Blood Transfusions: No Hx Blood Transfusion Reaction: No - Integumentary Other/Comment: 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, facial scar noted, scar to mid chest from open heart, scar to upper left chest near shoulder from pacemaker insertion, 3 small round scars to lle , and scar to rle from sx to remove buildup of fluid, both related to soccer injury age 17, scar to right forearm/wrist from work related injury pt has a plate - Musculoskeletal/Rheumatological Hx Musculoskeletal Disorders: Yes - Psychiatric Hx Emotional Abuse: No Hx Physical Abuse: No Hx Substance Use: No - Surgical History Hx Orthopedic Surgery: Yes (right hand) Other/Comment: PACE MAKER - Anesthesia Hx Anesthesia Reactions: No Hx Malignant Hyperthermia: No - Suicidal Assessment Feels Threatened In Home Enviroment: No Family/Social History - Physician Review Nursing Documentation Reviewed: Yes Family/Social History: Unknown Family HX Smoking Status: Former Smoker Hx Alcohol Use: No Hx Substance Use: No Hx Substance Use Treatment: No Allergies/Home Meds Allergies/Adverse Reactions: Allergies No Known Allergies Allergy (Verified 06/26/17 18:48) Home Medications: Home Meds Medication Instructions Recorded Confirmed Fenofibrate 160 mg PO QAM 07/14/12 06/26/17 Oxcarbazepine [Trileptal] 150 mg PO QAM 07/14/12 06/26/17 MetFORMIN [glucoPHAGE] 500 mg PO TID 09/02/14 06/26/17 Furosemide [Lasix] 40 mg PO QAM 10/03/14 06/26/17 Pantoprazole [Protonix EC Tab] 40 mg PO QAM 10/03/14 06/26/17 Cyanocobalamin [Vitamin B12 100 100 mcg PO BID 05/07/16 06/26/17 mcg Tab] Levothyroxine Sodium [Unithroid] 25 mcg PO QAM 05/07/16 06/26/17 Lisinopril 10 mg PO QAM 05/07/16 06/26/17 Metoprolol Tartrate [Lopressor] 25 mg PO BID 05/07/16 06/26/17 Potassium Chloride 20 meq PO QAM 05/07/16 06/26/17 Icosapent Ethyl [Vascepa] 1 tab PO DAILY 12/04/16 06/26/17 Ergocalciferol [Drisdol 50,000 1 cap PO Q7D 06/26/17 06/26/17 Intl Units Cap] Tamsulosin [Flomax] 1 cap PO DAILY 06/26/17 06/26/17 Warfarin [Coumadin] 3 mg PO 1800 06/26/17 06/26/17 Review of Systems - Physician Review All systems were reviewed & negative as marked: Yes - Review of Systems Constitutional: Normal. absent: Fevers, Night Sweats Eyes: Normal ENT: Normal Respiratory: Normal. absent: SOB Cardiovascular: Normal. absent: Chest Pain Gastrointestinal: Abdominal Pain (epigastric pain ), Diarrhea, Nausea. absent: Vomiting, Hematochezia, Hematemesis Genitourinary Male: Other ("yellower urine"). absent: Hematuria Musculoskeletal: Normal Skin: Normal Neurological: Dizziness, Other (Lightheadedness) Endocrine: Normal Hemo/Lymphatic: Normal Psychiatric: Normal Physical Exam Vital Signs Temp Pulse Resp BP Pulse Ox 06/26/17 18:44 101.3 F H 92 H 16 128/94 H 96 Temperature: Febrile Blood Pressure: Normal Pulse: Tachycardic Respiratory Rate: Normal Appearance: Positive for: Well-Appearing, Non-Toxic, Comfortable Pain Distress: None Mental Status: Positive for: Alert and Oriented X 3 - Systems Exam Head: Present: Atraumatic, Normocephalic Pupils: Present: PERRL Extroacular Muscles: Present: EOMI Conjunctiva: Present: Normal Mouth: Present: Dry, Other (pink and dry mucous membranes). No: Moist Mucous Membranes Neck: Present: Normal Range of Motion Respiratory/Chest: Present: Clear to Auscultation, Good Air Exchange. No: Respiratory Distress, Accessory Muscle Use Cardiovascular: Present: Regular Rate and Rhythm, Normal S1, S2. No: Murmurs Abdomen: Present: Tenderness (minimal diffuse tenderness), Distention, Normal Bowel Sounds. No: Peritoneal Signs, Hernias, Mass/Organomegaly Back: Present: Normal Inspection Upper Extremity: Present: Normal Inspection. No: Cyanosis, Edema Lower Extremity: Present: Normal Inspection. No: Edema Neurological: Present: GCS=15, CN II-XII Intact, Speech Normal Skin: Present: Warm, Dry, Normal Color. No: Rashes Psychiatric: Present: Alert, Oriented x 3, Normal Insight, Normal Concentration Medical Decision Making ED Course and Treatment: 06/26/17 18:59 Impression: 71 year old male presents to the Emergency department for abdominal pain. Plan: -- Labs -- IV Fluids -- X-ray of Abdomen -- CT Abdomen/Pelvis -- Reassess and disposition Prior Visits: Notes and results from previous visits were reviewed. On 12/04/16 patient presented to the Emergency department for abdominal pain and was admitted to the hospital. - Lab Interpretations Lab Results: 06/26/17 19:15 06/26/17 19:15 Lab Results 06/26/17 19:15: Sodium 136, Potassium 4.4, Chloride 98, Carbon Dioxide 23, Anion Gap 18, BUN 25 H, Creatinine 1.7 H, Est GFR ( Amer) 49, Est GFR ( Non-Af Amer) 40, Random Glucose 188 H, Calcium 9.7, Total Bilirubin 2.0 H, AST 239 H, ALT 105 H, Alkaline Phosphatase 101, Total Protein 8.3, Albumin 4.3, Globulin 3.9, Albumin/Globulin Ratio 1.1 06/26/17 19:15: WBC 10.0 D, RBC 4.48, Hgb 13.8 L, Hct 40.9 L, MCV 91.3, MCH 30.8, MCHC 33.7, RDW 13.9, Plt Count 251, MPV 9.5, Gran % 90.2 H, Lymph % (Auto ) 7.5 L, [place] % (Auto) 2.1, Eos % (Auto) 0.0 L, Baso % (Auto) 0.2, Gran # 8.99 H , Lymph # 0.8 L, [place] # 0.2, Eos # 0.0, Baso # 0.02, Neutrophils % (Manual) Pending, Lymphocytes % (Manual) Pending, Monocytes % (Manual) Pending - RAD Interpretation Radiology Orders: 06/26/17 18:57 obstructive series [ABD 2 VIEWS (FLAT/UP OR DECUB)] [RAD] Stat 06/26/17 20:19 ABDOMEN & PELVIS [ABD & PELVIS PO CONTRAST ONLY] [CT] Stat - Medication Orders Current Medication Orders: Discontinued Medications Hydromorphone HCl (Dilaudid) 0.5 mg IVP STAT STA Stop: 06/26/17 19:25 Last Admin: 06/26/17 19:31 Dose: 0.5 mg MAR Pain Assessment Document 06/26/17 19:31 GMD (Rec: 06/26/17 19:32 GMD [id number]) Pain Reassessment Is this a pain reassessment? No Sleep Is patient sleeping during reassessment? No Presence of Pain Presence of Pain Yes IVP Administration Document 06/26/17 19:31 GMD (Rec: 06/26/17 19:32 GMD [id number]) Charges for Administration # of IVP Administrations 1 Sodium Chloride (Sodium Chloride 0.9%) 1,000 mls @ 999 mls/hr IV .Q1H1M STA Stop: 06/26/17 19:58 Last Admin: 06/26/17 19:08 Dose: 999 mls/hr eMAR Start Stop Document 06/26/17 19:08 GMD (Rec: 06/26/17 19:08 GMD [id number]) Intravenous Solution Start Date 06/26/17 Start Time 19:08 End Date 06/26/17 End time 20:09 Total Infusion Time 61 - Scribe Statement The provider has reviewed the documentation as recorded by the Scribe Derrick Thapa. All medical record entries made by the Scribe were at my direction and personally dictated by me. I have reviewed the chart and agree that the record accurately reflects my personal performance of the history, physical exam, medical decision making, and the department course for this patient. I have also personally directed, reviewed, and agree with the discharge instructions and disposition. Disposition/Present on Arrival - Present on Arrival History of DVT/PE: No History of Uncontrolled Diabetes: No Urinary Catheter: No History of Decub. Ulcer: No History Surgical Site Infection Following: None - Disposition Referrals: Holly Corbin MD [Primary Care Provider] - Follow up with primary Forms: [employer] (Nepalese)
[2017-06-26] MEDS ORDERED: HYDROmorphone 0.5 mg/0.5 ml ISec IVP STA (19:24)
[2017-06-26 19:31] LABS: BASO # 0.02 K/mm3 (0.0-2.0); BASO % 0.2 % (0.0-3.0); GRAN # 8.99 (1.4-6.5); GRAN % 90.2 % (50.0-68.0); HEMOGLOBIN 13.8 g/dL (14.0-18.0); LYMPH # 0.8 (1.2-3.4); LYMPH % 7.5 % (22.0-35.0); MEAN CELL VOLUME 91.3 fl (80.0-105.0); MEAN CORPUSCULAR HEMOGLOBIN 30.8 pg (25.0-35.0); MEAN CORPUSCULAR HGB CONC 33.7 g/dl (31.0-37.0); MEAN PLATELET VOLUME 9.5 fl (7.0-11.0); MONO # 0.2 (0.1-0.6); MONO % 2.1 % (1.0-6.0); PLATELET COUNT 251 10^3/uL (120.0-450.0); RBC 4.48 10^6/uL (3.5-6.1); RED CELL DISTRIBUTION WIDTH 13.9 % (11.5-14.5)
[2017-06-26 19:52] LABS: ALB/GLOB RATIO 1.1 (1.1-1.8); ALBUMIN 4.3 g/dL (3.0-4.8); CALCIUM 9.7 mg/dL (8.4-10.5)
[2017-06-26] MEDS ORDERED: Iohexol 240 (50 ml) ONE (20:28)
[2017-06-26 22:05] LABS: BAND 14 % (0-2); LYMPHOCYTE 9 % (22.0-35.0); NEUTROPHIL 75 % (50.0-70.0)
[2017-06-26 22:06] LABS: MONOCYTE 2 % (1.0-6.0); PLATELET ESTIMATE NORMAL (NORMAL)
[2017-06-26] MEDS ORDERED: Piperacillin/Tazobact 3.375 gm 100 ML IVPB STA (22:21)
--- NOTE | 2017-06-26 23:07 | CT ---
EXAM: CT Abdomen and Pelvis With Intravenous Contrast CLINICAL HISTORY: 71 years old, male; Pain and signs and symptoms; Nausea and vomiting; Abdominal pain; Generalized; Additional info: Pain and vomiting TECHNIQUE: Axial computed tomography images of the abdomen and pelvis with intravenous contrast. All CT scans at this facility use one or more dose reduction techniques, viz.: automated exposure control; ma/kV adjustment per patient size (including targeted exams where dose is matched to indication; i.e. head); or iterative reconstruction technique. Coronal and sagittal reformatted images were created and reviewed. CONTRAST: 50 mL of OMNI 240 administered intravenously. COMPARISON: CT - ABD PELVIS PO CONTRAST ONLY 2016-12-07 14:56 FINDINGS: Limitations: Lack of intravenous contrast. Motion artifact - mild. Lower thorax: Minimal atelectasis/scarring. Coronary artery calcifications. Pacemaker leads. Small hiatal hernia. Contrast within esophagus may represent reflux. RIGHT lower lobe calcified granuloma. ABDOMEN: Liver: Fatty infiltration. Gallbladder and bile ducts: Calcified gallstones. No significant ductal dilation. Pancreas: No ductal dilation. No mass. Spleen: No splenomegaly. Adrenals: No mass. Kidneys and ureters: Mild stranding about kidneys, nonspecific. No renal calculi. No hydronephrosis. Stomach and bowel: Few scattered diverticula within small and large bowel. No associated inflammatory stranding. No definite mural thickening. No obstruction. Appendix: Normal caliber. No inflammation. PELVIS: Bladder: Unremarkable. Reproductive: Borderline enlarged prostate. ABDOMEN and PELVIS: Intraperitoneal space: No significant fluid collection. No free air. Bones/joints: Median sternotomy. Mild degenerative changes of spine. No acute fracture. Soft tissues: Unremarkable. Vasculature: Moderate atherosclerotic disease. No aneurysm. Lymph nodes: No pathologically enlarged lymph nodes. IMPRESSION: 1. Diverticulosis without definite CT evidence of diverticulitis. 2. Incidental/non-acute findings are described above.
[2017-06-26 23:18] LABS: VENOUS BLOOD GAS BASE EXCESS -0.7 mmol/L (0.0-2.0); VENOUS BLOOD GAS PO2 59 mm/Hg (30-55); VENOUS BLOOD PH 7.42 (7.32-7.43)
[2017-06-26 23:23] LABS: BILIRUBIN,DIRECT 1.7 mg/dL (0.0-0.4)
[2017-06-26 23:26] LABS: LIPASE 90 U/L (23-300)
--- NOTE | 2017-06-26 23:27 | ED PDOC ---
Physical Exam Vital Signs Temp Pulse Resp BP Pulse Ox 06/26/17 23:38 98.8 F 65 18 115/47 L 94 L 06/26/17 21:15 61 18 143/51 L 95 06/26/17 18:44 101.3 F H 92 H 16 128/94 H 96 Medical Decision Making ED Course and Treatment: 06/26/17 22:00 Case endorsed to me by Dr. Mercado. Pending Abdomen/Pelvis CT EXAM: CT Abdomen and Pelvis With Intravenous Contrast Dictated and Authenticated by: Yon Patricio MD 06/26/2017 11:06 PM IMPRESSION: 1. Diverticulosis without definite CT evidence of diverticulitis. 2. Incidental/non-acute findings are described above. Plan: -- Complete Ultrasound 06/26/17 23:31 Called Code Sepsis. Patient labs showed Lactate of 2.2 and Band Neutrophil 14. Patient's temperature is 101.3. 06/26/17 23:[address] GI Dr[address] Tolentino who is aware and agrees with the plan. - Lab Interpretations Lab Results: 06/26/17 19:15 06/26/17 19:15 Lab Results 06/26/17 22:50: pO2 59 H, VBG pH 7.42, VBG pCO2 36.0 L, VBG HCO3 23.4, VBG Total CO2 24.5, VBG O2 Sat (Calc) 94.5 H, VBG Base Excess -0.7 L, VBG Potassium 3.9, Glucose 167 H, Lactate 2.2 H, FiO2 21.0, Sodium 133.0, Chloride 99.0, Venous Blood Potassium 3.9 06/26/17 19:15: Direct Bilirubin 1.7 H, Lactate Dehydrogenase 941 H, Total Creatine Kinase 87, Troponin I < 0.01, Lipase 90 06/26/17 19:15: Sodium 136, Potassium 4.4, Chloride 98, Carbon Dioxide 23, Anion Gap 18, BUN 25 H, Creatinine 1.7 H, Est GFR ( Amer) 49, Est GFR ( Non-Af Amer) 40, Random Glucose 188 H, Calcium 9.7, Total Bilirubin 2.0 H, AST 239 H, ALT 105 H, Alkaline Phosphatase 101, Total Protein 8.3, Albumin 4.3, Globulin 3.9, Albumin/Globulin Ratio 1.1 06/26/17 19:15: WBC 10.0 D, RBC 4.48, Hgb 13.8 L, Hct 40.9 L, MCV 91.3, MCH 30.8, MCHC 33.7, RDW 13.9, Plt Count 251, MPV 9.5, Gran % 90.2 H, Lymph % (Auto ) 7.5 L, [place] % (Auto) 2.1, Eos % (Auto) 0.0 L, Baso % (Auto) 0.2, Gran # 8.99 H , Lymph # 0.8 L, [place] # 0.2, Eos # 0.0, Baso # 0.02, Neutrophils % (Manual) 75 H , Band Neutrophils % 14 H*, Lymphocytes % (Manual) 9 L, Monocytes % (Manual) 2, Platelet Evaluation Normal - RAD Interpretation Radiology Orders: 06/26/17 18:57 obstructive series [ABD 2 VIEWS (FLAT/UP OR DECUB)] [RAD] Stat 06/26/17 20:19 ABDOMEN & PELVIS [ABD & PELVIS PO CONTRAST ONLY] [CT] Stat 06/26/17 23:07 ABDOMEN COMPLETE [US] Stat 06/26/17 23:27 CXR [CHEST PORTABLE] [RAD] Stat - Medication Orders Current Medication Orders: Discontinued Medications Hydromorphone HCl (Dilaudid) 0.5 mg IVP STAT STA Stop: 06/26/17 19:25 Last Admin: 06/26/17 19:31 Dose: 0.5 mg MAR Pain Assessment Document 06/26/17 19:31 GMD (Rec: 06/26/17 19:32 GMD [id number]) Pain Reassessment Is this a pain reassessment? No Sleep Is patient sleeping during reassessment? No Presence of Pain Presence of Pain Yes IVP Administration Document 06/26/17 19:31 GMD (Rec: 06/26/17 19:32 GMD [id number]) Charges for Administration # of IVP Administrations 1 Sodium Chloride (Sodium Chloride 0.9%) 1,000 mls @ 999 mls/hr IV .Q1H1M STA Stop: 06/26/17 19:58 Last Admin: 06/26/17 19:08 Dose: 999 mls/hr eMAR Start Stop Document 06/26/17 19:08 GMD (Rec: 06/26/17 19:08 GMD [id number]) Intravenous Solution Start Date 06/26/17 Start Time 19:08 End Date 06/26/17 End time 20:09 Total Infusion Time 61 Piperacillin Sod/Tazobactam Sod (Zosyn 3.375 In Ns 100ml) 100 mls @ 200 mls/hr IVPB STAT STA PRN Reason: Protocol Stop: 06/26/17 22:50 Last Admin: 06/26/17 23:05 Dose: 200 mls/hr eMAR Start Stop Document 06/26/17 23:05 GMD (Rec: 06/26/17 23:05 GMD [id number]) Intravenous Solution Start Date 06/26/17 Start Time 23:05 End Date 06/26/17 End time 23:35 Total Infusion Time 30 - Scribe Statement The provider has reviewed the documentation as recorded by the Alexx Szymanski Provider Scribe Attestation: All medical record entries made by the Scribe were at my direction and personally dictated by me. I have reviewed the chart and agree that the record accurately reflects my personal performance of the history, physical exam, medical decision making, and the department course for this patient. I have also personally directed, reviewed, and agree with the discharge instructions and disposition. Disposition/Present on Arrival - Present on Arrival Any Indicators Present on Arrival: No History of DVT/PE: No History of Uncontrolled Diabetes: No Urinary Catheter: No History of Decub. Ulcer: No History Surgical Site Infection Following: None - Disposition Have Diagnosis and Disposition been Completed?: Yes Diagnosis: Sepsis, Elevated LFTs Disposition: HOSPITALIZED Disposition Time: 03:00 Condition: FAIR
[2017-06-26 23:30] LABS: TROPONIN I < 0.01 ng/mL
--- NOTE | 2017-06-27 00:21 | US ---
EXAM: US Abdomen Complete CLINICAL HISTORY: 71 years old, male; Pain; Abdominal pain; Generalized; Additional info: Abd pain TECHNIQUE: Real-time ultrasound of the abdomen (complete) with image documentation. COMPARISON: CT - ABD PELVIS PO CONTRAST ONLY 2017-06-26 22:35 FINDINGS: Liver: Enlarged, 19.9 cm. Fatty infiltration. No mass. No intrahepatic ductal dilatation. Gallbladder: Gallstones. Sludge. No wall thickening. No pericholecystic fluid. No sonographic Solis's sign. Common bile duct: No dilatation. No stones. Pancreas: Unremarkable as visualized. Kidneys: Normal echogenicity. No hydronephrosis. Spleen: No splenomegaly. Aorta: Obscured by overlying bowel gas. Inferior vena cava: Unremarkable. Free fluid: No significant free fluid. IMPRESSION: 1. Cholelithiasis. 2. Incidental/non-acute findings are described above.
[2017-06-27 02:04] VITALS: BMI 35.6
--- NOTE | 2017-06-27 02:46 | PCM.SEPTIC ---
Sepsis Progress Note - Reassessment Type Date of Evaluation: 06/27/17 Time of Evaluation: 02:46 Reassessment Type: Non-invasive reassessment - Non Invasive Reassessment Were the most recent vital sign reviewed: Yes Vital Sign (Latest): Temp Pulse Resp BP Pulse Ox 98.5 F 65 18 116/62 96 06/27/17 01:43 06/27/17 02:00 06/27/17 01:43 06/27/17 01:43 06/27/17 01:02 Cardiovascular: Yes: Regular Rate, Rhythm Respiratory: Yes: Normal Breath Sounds Capillary Refill: Normal (Less than 2 sec) Pulses: Normal Radial, Normal Dorsalis Pedis, Normal Posterior Tibialis Skin: Warm, Dry
[2017-06-27 02:48] LABS: VENOUS BLOOD GAS BASE EXCESS -2.2 mmol/L (0.0-2.0); VENOUS BLOOD GAS PO2 41 mm/Hg (30-55); VENOUS BLOOD PH 7.36 (7.32-7.43)
[2017-06-27 03:18] LABS: PH,URINE 5.5 (4.7-8.0); URINE BILIRUBIN MODERATE (NEGATIVE); URINE BLOOD NEGATIVE (NEGATIVE); URINE GLUCOSE (UA) NEGATIVE (NEGATIVE); URINE LEUKOCYTE ESTERASE NEGATIVE Leu/uL (NEGATIVE); URINE NITRATE NEGATIVE (NEGATIVE); URINE PROTEIN TRACE mg/dL (<30 mg/dL)
[2017-06-27 03:21] LABS: URINE APPEARANCE CLEAR (CLEAR); URINE COLOR YELLOW (YELLOW)
[2017-06-27 03:35] LABS: URINE EPITHELIAL CELLS 0 - 2 /hpf (0-5); URINE RBC 0 - 2 /hpf (0-2); URINE WBC 0 - 2 /hpf (0-6)
[2017-06-27 03:36] LABS: URINE BACTERIA SMALL (NEG)
--- NOTE | 2017-06-27 08:44 | CARD ---
APPROVED REPORT EKG Measurement Heart [id number] <Conclusion> Electronic ventricular pacemaker: 100% V. Paced A. Fib.
[2017-06-27] MEDS ORDERED: Pantoprazole 40 mg EC Tab PO SCH (10:00)
[2017-06-27] MEDS ORDERED: FENOFIBRATE 160 MG PO SCH (10:00)
[2017-06-27] MEDS ORDERED: ICOSAPENT ETHYL PO SCH (10:00)
--- NOTE | 2017-06-27 10:50 | RAD ---
HISTORY: Vomiting. COMPARISON: 12/06/2016 FINDINGS: BOWEL: Normal. No obstruction. No free air. BONES: Normal. OTHER FINDINGS: None. IMPRESSION: M No significant or acute findings to account for/ related to the clinical presentation.
--- NOTE | 2017-06-27 10:54 | RAD ---
HISTORY: Abdominal pain. Portable study 23:45 12/06/2016 all COMPARISON: 12/06/2016 FINDINGS: LUNGS: No active pulmonary disease. PLEURA: No significant pleural effusion identified, no pneumothorax apparent. CARDIOVASCULAR: Cardiomegaly. No evidence of acute, significant cardiovascular disease. Position/ configuration of pacemaker Satisfactory. OSSEOUS STRUCTURES: No significant abnormalities. VISUALIZED UPPER ABDOMEN: Normal. OTHER FINDINGS: None. IMPRESSION: No active disease. No significant interval change compared to the prior examination(s).
[2017-06-27 11:51] LABS: INR 2.35 (0.93-1.08); PROTHROMBIN TIME 26.3 SECONDS (9.4-12.5)
[2017-06-27] MEDS: Omega-3-Acid Ethyl Esters 1 GM Cap PO SCH (11:55)
[2017-06-27] MEDS: Levothyroxine 25 MCG TAB PO SCH (11:56)
[2017-06-27] MEDS: Ergocalciferol 50,000 Intl Units Cap PO SCH (13:14)
[2017-06-27] MEDS: Insulin Reg-LOW-Coverage SC SCH ×2 (13:15→16:55)
[2017-06-27 14:18] LABS: BASO # 0.02 K/mm3 (0.0-2.0); BASO % 0.2 % (0.0-3.0); GRAN # 10.32 (1.4-6.5); GRAN % 85.4 % (50.0-68.0); HEMOGLOBIN 12.6 g/dL (14.0-18.0); LYMPH # 1.1 (1.2-3.4); MEAN CELL VOLUME 90.7 fl (80.0-105.0); MEAN CORPUSCULAR HEMOGLOBIN 30.8 pg (25.0-35.0); MEAN PLATELET VOLUME 9.9 fl (7.0-11.0); MONO # 0.7 (0.1-0.6); MONO % 5.4 % (1.0-6.0); RBC 4.09 10^6/uL (3.5-6.1); WHITE BLOOD COUNT 12.1 10^3/ul (4.5-11.0)
[2017-06-27 14:28] LABS: ALB/GLOB RATIO 1.1 (1.1-1.8); ALBUMIN 3.8 g/dL (3.0-4.8); CALCIUM 9.1 mg/dL (8.4-10.5)
[2017-06-27] MEDS ORDERED: cefTRIAXone 1 gm 1 GM/100 ML BAG IVPB SCH (15:00)
[2017-06-27] MEDS ORDERED: HYDROmorphone 0.5 mg/0.5 ml ISec IVP PRN (16:20)
--- NOTE | 2017-06-27 17:39 | CP.PCM.CON ---
History of Present Illness - History of Present Illness History of Present Illness: Infectious Disease Consultation: June 27, 2017 71 yo male brought to [facility] [place] for 1 day history of abdominal pain. The patient was found to have fevers up to 101.3 F. Mild leukocytosis with a left shift. Diarrhea episodes for the past two days. Patient with sharp epigastric pains with dizziness, nausea, and lightheadedness. No other symptoms given PMHx: Hypertension, Hyperlipidemia, Stroke, Hyperlipidemia, Atrial Fibrillation, CVA, Hypothyroidism. PSHx: CABG with valve repair and replacement 2011 Pacemaker 2010. Right hand repair with plate placement. Allergies: NKDA Social Hx: No EtOH, illicit drug use Former tobacco use Active Medications Cyanocobalamin (Vitamin B12 100 Mcg Tab) 100 mcg PO BID [facility] Last Admin: 06/27/17 11:56 Dose: 100 mcg Ergocalciferol (Drisdol 50,000 Intl Units Cap) 1 cap PO Q7D [facility] Last Admin: 06/27/17 13:14 Dose: 1 cap Fenofibrate (Tricor) 145 mg PO DAILY [facility] Last Admin: 06/27/17 11:55 Dose: 145 mg Furosemide (Lasix) 40 mg PO QAM [facility] Last Admin: 06/27/17 11:56 Dose: 40 mg Hydromorphone HCl (Dilaudid) 0.25 mg IVP Q3H PRN PRN Reason: Pain, severe (8-10) Last Admin: 06/27/17 16:40 Dose: 0.25 mg Ceftriaxone Sodium 1 gm/ (Sodium Chloride) 100 mls @ 100 mls/hr IVPB DAILY [facility] Last Admin: 06/27/17 15:11 Dose: 100 mls/hr Insulin Human Regular (Humulin R Low) 0 units SC ACHS [facility] PRN Reason: Protocol Last Admin: 06/27/17 16:55 Dose: Not Given Levothyroxine Sodium (Synthroid) 25 mcg PO QAM [facility] Last Admin: 06/27/17 11:56 Dose: 25 mcg Lisinopril (Zestril) 10 mg PO QAM [facility] Last Admin: 06/27/17 11:55 Dose: 10 mg Metformin HCl (Glucophage) [facility] [place] Metoprolol Tartrate (Lopressor) 25 mg PO BID [facility] Last Admin: 06/27/17 11:56 Dose: 25 mg Tbbzn-0-Lwzl Ethyl Esters (Lovaza) 1 gm PO DAILY [facility] Last Admin: 06/27/17 11:55 Dose: 1 gm Oxcarbazepine (Trileptal) 150 mg PO QAM [facility] PRN Reason: Protocol Last Admin: 06/27/17 11:55 Dose: 150 mg Pantoprazole Sodium (Protonix Ec Tab) 40 mg PO QAM [facility] Last Admin: 06/27/17 11:55 Dose: 40 mg Potassium Chloride (K-Dur 20 Meq Er Tab) 20 meq PO DAILY [facility] Tamsulosin HCl (Flomax) 0.4 mg PO DAILY [facility] Last Admin: 06/27/17 11:55 Dose: 0.4 mg Family Hx: none given ROS: nausea, vomiting, diarrhea, abdominal pain, fevers. No chest pain, melena, hematuria, hematemesis, hematochezia, depression, anxiety , vision loss, hearing loss Past Patient History - Infectious Disease Hx of Infectious Diseases: None - Tetanus Immunizations Tetanus Immunization: Unknown - Past Social History Smoking Status: Former Smoker - CARDIAC Hx Cardiac Disorders: Yes ([place]) Hx Pacemaker: Yes Other/Comment: open heart triple with valve repair and replace in 2011, pacemaker battery change 2010 - NEUROLOGICAL Hx Neurological Disorder: Yes HX Cerebrovascular Accident: Yes (no deficits) - ENDOCRINE/METABOLIC Hx Endocrine Disorders: Yes Hx Diabetes Mellitus Type 2: Yes Hx Hypothyroidism: Yes - HEMATOLOGICAL/ONCOLOGICAL Hx Blood Transfusions: No Hx Blood Transfusion Reaction: No - INTEGUMENTARY Other/Comment: 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, facial scar noted, scar to mid chest from open heart, scar to upper left chest near shoulder from pacemaker insertion, 3 small round scars to lle , and scar to rle from sx to remove buildup of fluid, both related to soccer injury age 17, scar to right forearm/wrist from work related injury pt has a plate - MUSCULOSKELETAL/RHEUMATOLOGICAL Hx Falls: No - PSYCHIATRIC Hx Substance Use: No - SURGICAL HISTORY Hx Surgeries: Yes Other/Comment: Sx at RLE to remove fluid buildup, Sx R.hand with plate, pacemaker placement - ANESTHESIA Hx Anesthesia Reactions: No Hx Malignant Hyperthermia: No Meds Allergies/Adverse Reactions: Allergies Allergy/AdvReac Type Severity Reaction Status Date / Time No Known Allergies Allergy Verified 06/26/17 18:48 - Medications Medications: Current Medications Cyanocobalamin (Vitamin B12 100 Mcg Tab) 100 mcg PO BID [facility] Last Admin: 06/27/17 11:56 Dose: 100 mcg Ergocalciferol (Drisdol 50,000 Intl Units Cap) 1 cap PO Q7D [facility] Last Admin: 06/27/17 13:14 Dose: 1 cap Fenofibrate (Tricor) 145 mg PO DAILY [facility] Last Admin: 06/27/17 11:55 Dose: 145 mg Furosemide (Lasix) 40 mg PO QAM [facility] Last Admin: 06/27/17 11:56 Dose: 40 mg Hydromorphone HCl (Dilaudid) 0.25 mg IVP Q3H PRN PRN Reason: Pain, severe (8-10) Last Admin: 06/27/17 16:40 Dose: 0.25 mg Ceftriaxone Sodium 1 gm/ (Sodium Chloride) 100 mls @ 100 mls/hr IVPB DAILY [facility] Last Admin: 06/27/17 15:11 Dose: 100 mls/hr Insulin Human Regular (Humulin R Low) 0 units SC ACHS [facility] PRN Reason: Protocol Last Admin: 06/27/17 16:55 Dose: Not Given Levothyroxine Sodium (Synthroid) 25 mcg PO QAM [facility] Last Admin: 06/27/17 11:56 Dose: 25 mcg Lisinopril (Zestril) [facility] [place] Last Admin: 06/27/17 11:55 Dose: 10 mg Metformin HCl (Glucophage) 500 [facility] [place] Metoprolol Tartrate (Lopressor) 25 mg PO BID [facility] Last Admin: 06/27/17 11:56 Dose: 25 mg Hvhbc-1-Igeb Ethyl Esters (Lovaza) 1 gm PO DAILY [facility] Last Admin: 06/27/17 11:55 Dose: 1 gm Oxcarbazepine (Trileptal) 150 [facility] [place] [facility]N Reason: Protocol Last Admin: 06/27/17 11:55 Dose: 150 mg Pantoprazole Sodium (Protonix Ec Tab) 40 [facility] [place] Last Admin: 06/27/17 11:55 Dose: 40 mg Potassium Chloride (K-Dur 20 Meq Er Tab) 20 meq PO DAILY [facility] Tamsulosin HCl (Flomax) 0.4 mg PO DAILY [facility] Last Admin: 06/27/17 11:55 Dose: 0.4 mg Physical Exam - Constitutional Appears: Non-toxic, No Acute Distress, Chronically Ill - Head Exam Head Exam: ATRAUMATIC, NORMOCEPHALIC - Eye Exam Eye Exam: EOMI, PERRL Pupil Exam: NORMAL ACCOMODATION, PERRL - ENT Exam ENT Exam: Mucous Membranes Moist, Normal External Ear Exam, TM's Normal Bilaterally - Neck Exam Neck exam: Positive for: Full Rom, Normal Inspection - Respiratory Exam Respiratory Exam: Clear to Auscultation Bilateral, NORMAL BREATHING PATTERN. absent: Rales, Rhonchi, Wheezes - Cardiovascular Exam Cardiovascular Exam: REGULAR RHYTHM, RRR, +S1, +S2 - GI/Abdominal Exam GI & Abdominal Exam: Distended, Normal Bowel Sounds, Soft, Tenderness - Extremities Exam Extremities exam: Positive for: full ROM, normal inspection - Neurological Exam Neurological exam: Alert, CN II-XII Intact, Oriented x3 - Psychiatric Exam Psychiatric exam: Normal Affect, Normal Mood - Skin Skin Exam: Intact, Normal Color Results - Vital Signs Recent Vital Signs: Last Vital Signs Temp 99.1 F 06/27/17 12:54 Pulse 95 H 06/27/17 14:00 Resp 20 06/27/17 12:54 BP 117/53 L 06/27/17 12:54 Pulse Ox 95 06/27/17 06:00 - Labs Result Diagrams: 06/27/17 14:09 06/27/17 14:09 Labs: Laboratory Results - last 24 hr 06/27/17 06/27/17 06/27/17 02:30 02:45 10:45 WBC RBC Hgb Hct MCV MCH MCHC RDW Plt Count MPV Gran % Lymph % (Auto) [place] % (Auto) Eos % (Auto) Baso % (Auto) Gran # Lymph # [place] # Eos # Baso # PT 26.3 H INR 2.35 H pO2 41 VBG pH 7.36 VBG pCO2 41.0 VBG HCO3 23.2 VBG Total CO2 24.5 VBG O2 Sat (Calc) 77.8 H VBG Base Excess -2.2 L VBG Potassium 3.7 Sodium 134.0 Chloride 103.0 Glucose 150 H Lactate 1.3 FiO2 21.0 Potassium Carbon Dioxide Anion Gap BUN Creatinine Est GFR ( Amer) Est GFR (Non-Af Amer) Random Glucose Calcium Total Bilirubin AST ALT Alkaline Phosphatase Total Protein Albumin Globulin Albumin/Globulin Ratio Venous Blood Potassium 3.7 Urine Color Yellow Urine Appearance Clear Urine pH 5.5 Ur Specific [place] 1.025 Urine Protein Trace H Urine Glucose (UA) Negative Urine Ketones Trace H Urine Blood Negative Urine Nitrate Negative Urine Bilirubin Moderate H Urine Urobilinogen 2.0 H Ur Leukocyte Esterase Negative Urine RBC 0 - 2 Urine WBC 0 - 2 Ur Epithelial Cells 0 - 2 Urine Bacteria Small 06/27/17 06/27/17 14:09 14:09 WBC 12.1 H D RBC 4.09 Hgb 12.6 L Hct 37.1 L MCV 90.7 MCH 30.8 MCHC 34.0 RDW 14.0 Plt Count 226 MPV 9.9 Gran % 85.4 H Lymph % (Auto) 9.0 L [place] % (Auto) 5.4 Eos % (Auto) 0.0 L Baso % (Auto) 0.2 Gran # 10.32 H Lymph # 1.1 L [place] # 0.7 H Eos # 0.0 Baso # 0.02 PT INR pO2 VBG pH VBG pCO2 VBG HCO3 VBG Total CO2 VBG O2 Sat (Calc) VBG Base Excess VBG Potassium Sodium 135 Chloride 102 Glucose Lactate FiO2 Potassium 4.1 Carbon Dioxide 22 Anion Gap 15 BUN 21 Creatinine 1.6 H Est GFR ( Amer) 52 Est GFR (Non-Af Amer) 43 Random Glucose 196 H Calcium 9.1 Total Bilirubin 2.8 H AST 295 H D ALT 166 H Alkaline Phosphatase 94 Total Protein 7.3 Albumin 3.8 Globulin 3.5 Albumin/Globulin Ratio 1.1 Venous Blood Potassium Urine Color Urine Appearance Urine pH Ur Specific [place] Urine Protein Urine Glucose (UA) Urine Ketones Urine Blood Urine Nitrate Urine Bilirubin Urine Urobilinogen Ur Leukocyte Esterase Urine RBC Urine WBC Ur Epithelial Cells Urine Bacteria Assessment & Plan - Assessment and Plan (Free Text) Assessment: 71 yo male with abdominal pain, diarrhea, and fevers. [place] cultures sent. CT scan showing diverticulosis but no signs of diverticulitis. Fevers up to 101.3 F on admission. Cultures of stool as well as C. Diff sent for evaluation. Monitor WBC trend and fever trend. Started on Rocephin for antibiotic coverage. Add Flagyl to regimen. Seen by GI. Supportive care. Thank you for allowing me to participate in the care of this patient, we will follow with you.
[2017-06-27] MEDS ORDERED: HYDROmorphone 0.5 mg/0.5 ml ISec IVP STA (19:09)
--- NOTE | 2017-06-27 20:06 | CP.PCM.CON ---
<Rosendo Lilly - Last Filed: 06/27/17 21:01> History of Present Illness - History of Present Illness History of Present Illness: Surgery Consult note. Dr. Gomez 71yo M with PMHx of A.Fib, HTN, HLD, CVA, Hypothyroid here for evaluation of abdominal pain. Patient states that he started having abdominal pain which started yesterday morning. Pain is described as sharp, located in the epigastric region and radiates to the lower abdomen. Pain is associated with nausea, no vomiting; nausea is worse within one hour of oral intake. Does report some upper respiratory symptoms earlier in the week (cough, cold). Denies any fevers or chills at home. Started having fevers last night. Also reports diarrhea x4 episodes yesterday and 4 episodes today, no blood, no dark stool. Does report flatus. No CP/SOB. No headaches. No urinary complaints. PMHx: HTN, HLD, CVA, A.fib (on Coumadin), Hypothyroidism PSHx: CABG w/ valve repair and replacement, Ventricular Pacemaker, Right hand ORIF Family Hx: Sister - Uterine CA; Brother - HTN Social Hx: Previous heavy tobacco use 30+ years, quit 15 years ago. Denies ETOH. Denies illicit drugs NKDA Review of Systems - Review of Systems All systems: reviewed and no additional remarkable complaints except - Constitutional Constitutional: Chills, Fever - Cardiovascular Cardiovascular: absent: Chest Pain, Dyspnea - Respiratory Respiratory: absent: Cough, Dyspnea - Gastrointestinal Gastrointestinal: Abdominal Pain, Diarrhea, Nausea. absent: Hematemesis, Hematochezia, Melena, Vomiting - Genitourinary Genitourinary: absent: Change in Urinary Stream, Difficulty Urinating, Dysuria Past Patient History - Infectious Disease Hx of Infectious Diseases: None - Tetanus Immunizations Tetanus Immunization: Unknown - Past Medical History & Family History Past Medical History?: Yes - Past Social History Smoking Status: Former Smoker - CARDIAC Hx Cardiac Disorders: Yes ([place]) Hx Pacemaker: Yes Other/Comment: open heart triple with valve repair and replace in 2011, pacemaker battery change 2010 - NEUROLOGICAL Hx Neurological Disorder: Yes HX Cerebrovascular Accident: Yes (no deficits) - ENDOCRINE/METABOLIC Hx Endocrine Disorders: Yes Hx Diabetes Mellitus Type 2: Yes Hx Hypothyroidism: Yes - HEMATOLOGICAL/ONCOLOGICAL Hx Blood Transfusions: No Hx Blood Transfusion Reaction: No - INTEGUMENTARY Other/Comment: 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, facial scar noted, scar to mid chest from open heart, scar to upper left chest near shoulder from pacemaker insertion, 3 small round scars to lle , and scar to rle from sx to remove buildup of fluid, both related to soccer injury age 17, scar to right forearm/wrist from work related injury pt has a plate - MUSCULOSKELETAL/RHEUMATOLOGICAL Hx Falls: No - PSYCHIATRIC Hx Substance Use: No - SURGICAL HISTORY Hx Surgeries: Yes Other/Comment: Sx at RLE to remove fluid buildup, Sx R.hand with plate, pacemaker placement - ANESTHESIA Hx Anesthesia Reactions: No Hx Malignant Hyperthermia: No Meds Allergies/Adverse Reactions: Allergies Allergy/AdvReac Type Severity Reaction Status Date / Time No Known Allergies Allergy Verified 06/26/17 18:48 - Medications Medications: Current Medications Cyanocobalamin (Vitamin B12 100 Mcg Tab) 100 mcg PO BID [facility] Last Admin: 06/27/17 17:32 Dose: 100 mcg Ergocalciferol (Drisdol 50,000 Intl Units Cap) 1 cap PO Q7D [facility] Last Admin: 06/27/17 13:14 Dose: 1 cap Fenofibrate (Tricor) 145 mg PO DAILY [facility] Last Admin: 06/27/17 11:55 Dose: 145 mg Furosemide (Lasix) 40 mg PO QAM [facility] Last Admin: 06/27/17 11:56 Dose: 40 mg Hydromorphone HCl (Dilaudid) 0.25 mg IVP Q3H PRN PRN Reason: Pain, severe (8-10) Last Admin: 06/27/17 16:40 Dose: 0.25 mg Ceftriaxone Sodium 1 gm/ (Sodium Chloride) 100 mls @ 100 mls/hr IVPB DAILY [facility] Last Admin: 06/27/17 15:11 Dose: 100 mls/hr Metronidazole (Flagyl) 500 mg in 100 mls @ 100 mls/hr IVPB Q8 [facility] PRN Reason: Protocol Insulin Human Regular (Humulin R Low) 0 units SC ACHS [facility] PRN Reason: Protocol Last Admin: 06/27/17 16:55 Dose: Not Given Levothyroxine Sodium (Synthroid) 25 mcg PO QAM [facility] Last Admin: 06/27/17 11:56 Dose: 25 mcg Lisinopril (Zestril) 10 mg PO QAM [facility] Last Admin: 06/27/17 11:55 Dose: 10 mg Metformin HCl (Glucophage) 500 mg PO BIDWM [facility] Last Admin: 06/27/17 17:33 Dose: 500 mg Metoprolol Tartrate (Lopressor) 25 mg PO BID [facility] Last Admin: 06/27/17 17:33 Dose: 25 mg Osftm-9-Quvm Ethyl Esters (Lovaza) 1 gm PO DAILY [facility] Last Admin: 06/27/17 11:55 Dose: 1 gm Oxcarbazepine (Trileptal) 150 mg PO QAM [facility] PRN Reason: Protocol Last Admin: 06/27/17 11:55 Dose: 150 mg Pantoprazole Sodium (Protonix Inj) 40 mg IVP DAILY [facility] Potassium Chloride (K-Dur 20 Meq Er Tab) 20 meq PO DAILY [facility] Tamsulosin HCl (Flomax) 0.4 mg PO DAILY [facility] Last Admin: 06/27/17 11:55 Dose: 0.4 mg Physical Exam - Constitutional Appears: Well, Non-toxic, No Acute Distress - Head Exam Head Exam: ATRAUMATIC, NORMAL INSPECTION, NORMOCEPHALIC - Eye Exam Eye Exam: EOMI, Scleral icterus - ENT Exam ENT Exam: Mucous Membranes Moist - Respiratory Exam Respiratory Exam: NORMAL BREATHING PATTERN. absent: Accessory Muscle Use, Respiratory Distress - Cardiovascular Exam Cardiovascular Exam: absent: JVD - GI/Abdominal Exam GI & Abdominal Exam: Soft Additional comments: mildly distended. soft. Tenderness to palpation in the epigastric area, RUQ, RLQ and LLQ. No rebound tenderness, no guarding. - Extremities Exam Extremities exam: Positive for: normal inspection. Negative for: calf tenderness - Neurological Exam Neurological exam: Alert, Oriented x3 - Psychiatric Exam Psychiatric exam: Normal Affect, Normal Mood - Skin Skin Exam: Dry, Intact Results - Vital Signs Recent Vital Signs: Last Vital Signs Temp 100.6 F H 06/27/17 18:32 Pulse 95 H 06/27/17 18:00 Resp 20 06/27/17 12:54 BP 134/64 06/27/17 17:33 Pulse Ox 95 06/27/17 06:00 - Labs Result Diagrams: 06/27/17 14:09 06/27/17 14:09 Labs: Laboratory Results - last 24 hr 12/25/17 12/25/17 12/25/17 02:30 02:45 10:45 WBC RBC Hgb Hct MCV MCH MCHC RDW Plt Count MPV Gran % Lymph % (Auto) [place] % (Auto) Eos % (Auto) Baso % (Auto) Gran # Lymph # [place] # Eos # Baso # PT 26.3 H INR 2.35 H pO2 41 VBG pH 7.36 VBG pCO2 41.0 VBG HCO3 23.2 VBG Total CO2 24.5 VBG O2 Sat (Calc) 77.8 H VBG Base Excess -2.2 L VBG Potassium 3.7 Sodium 134.0 Chloride 103.0 Glucose 150 H Lactate 1.3 FiO2 21.0 Potassium Carbon Dioxide Anion Gap BUN Creatinine Est GFR ( Amer) Est GFR (Non-Af Amer) Random Glucose Calcium Total Bilirubin AST ALT Alkaline Phosphatase Total Protein Albumin Globulin Albumin/Globulin Ratio Venous Blood Potassium 3.7 Urine Color Yellow Urine Appearance Clear Urine pH 5.5 Ur Specific [place] 1.025 Urine Protein Trace H Urine Glucose (UA) Negative Urine Ketones Trace H Urine Blood Negative Urine Nitrate Negative Urine Bilirubin Moderate H Urine Urobilinogen 2.0 H Ur Leukocyte Esterase Negative Urine RBC 0 - 2 Urine WBC 0 - 2 Ur Epithelial Cells 0 - 2 Urine Bacteria Small 06/27/17 06/27/17 14:09 14:09 WBC 12.1 H D RBC 4.09 Hgb 12.6 L Hct 37.1 L MCV 90.7 MCH 30.8 MCHC 34.0 RDW 14.0 Plt Count 226 MPV 9.9 Gran % 85.4 H Lymph % (Auto) 9.0 L [place] % (Auto) 5.4 Eos % (Auto) 0.0 L Baso % (Auto) 0.2 Gran # 10.32 H Lymph # 1.1 L [place] # 0.7 H Eos # 0.0 Baso # 0.02 PT INR pO2 VBG pH VBG pCO2 VBG HCO3 VBG Total CO2 VBG O2 Sat (Calc) VBG Base Excess VBG Potassium Sodium 135 Chloride 102 Glucose Lactate FiO2 Potassium 4.1 Carbon Dioxide 22 Anion Gap 15 BUN 21 Creatinine 1.6 H Est GFR ( Amer) 52 Est GFR (Non-Af Amer) 43 Random Glucose 196 H Calcium 9.1 Total Bilirubin 2.8 H AST 295 H D ALT 166 H Alkaline Phosphatase 94 Total Protein 7.3 Albumin 3.8 Globulin 3.5 Albumin/Globulin Ratio 1.1 Venous Blood Potassium Urine Color Urine Appearance Urine pH Ur Specific [place] Urine Protein Urine Glucose (UA) Urine Ketones Urine Blood Urine Nitrate Urine Bilirubin Urine Urobilinogen Ur Leukocyte Esterase Urine RBC Urine WBC Ur Epithelial Cells Urine Bacteria Assessment & Plan - Assessment and Plan (Free Text) Assessment: 71yo M with cholelithiasis r/o choledo vs. cholecystitis - Leukocytosis, febrile - Elevated LFTs - CT abd noted - Abd US noted - coagulopathy noted Plan: - f/u HIDA ordered - f/u GI recs - Continue Abx as per ID - IVF - Antipyretics prn - Pain management - Vitamin K. Repeat INR in AM. Hold warfarin Further recs as per Dr. Jason Lilly PGY1 surgery pager: [phone] <Oscar Gomez - Last Filed: 06/30/17 17:34> Meds - Medications Medications: Current Medications Cyanocobalamin (Vitamin B12 100 Mcg Tab) 100 mcg PO BID [facility] Last Admin: 06/30/17 10:42 Dose: 100 mcg Docusate Sodium (Colace) 100 mg PO DAILY [facility] Last Admin: 06/30/17 10:40 Dose: 100 mg Enoxaparin Sodium (Lovenox) 30 mg SC DAILY [facility] PRN Reason: Protocol Last Admin: 06/29/17 10:15 Dose: 30 mg Ergocalciferol (Drisdol 50,000 Intl Units Cap) 1 cap PO Q7D [facility] Last Admin: 06/27/17 13:14 Dose: 1 cap Fenofibrate (Tricor) 145 mg PO DAILY [facility] Last Admin: 06/30/17 10:42 Dose: 145 mg Furosemide (Lasix) 40 mg PO QAM [facility] Last Admin: 06/30/17 10:56 Dose: Not Given Heparin Sodium (Porcine) (Heparin) 5,000 units SC Q8 [facility] PRN Reason: Protocol Stop: 07/01/17 00:01 Ceftriaxone Sodium 1 gm/ (Sodium Chloride) 100 mls @ 100 mls/hr IVPB DAILY [facility] Last Admin: 06/30/17 10:43 Dose: 100 mls/hr Metronidazole (Flagyl) 500 mg in 100 mls @ 100 mls/hr IVPB Q8 [facility] PRN Reason: Protocol Last Admin: 06/30/17 14:16 Dose: 100 mls/hr Sodium Chloride (Sodium Chloride 0.9%) 1,000 mls @ 125 mls/hr IV .Q8H [facility] Last Admin: 06/30/17 01:04 Dose: 125 mls/hr Ibuprofen (Motrin Tab) 400 mg PO Q6H PRN PRN Reason: Fever >100.4 F Insulin Human Regular (Humulin R Low) 0 units SC ACHS [facility] PRN Reason: Protocol Last Admin: 06/30/17 13:54 Dose: Not Given Levothyroxine Sodium (Synthroid) 25 mcg PO QAM [facility] Last Admin: 06/30/17 10:42 Dose: 25 mcg Lisinopril (Zestril) 10 mg PO QAM [facility] Last Admin: 06/30/17 10:42 Dose: 10 mg Metformin HCl (Glucophage) 500 mg PO BIDWM [facility] Last Admin: 06/30/17 10:41 Dose: 500 mg Metoprolol Tartrate (Lopressor) 25 mg PO BID [facility] Last Admin: 06/30/17 10:46 Dose: 25 mg Cxxpm-9-Faqw Ethyl Esters (Lovaza) 1 gm PO DAILY [facility] Last Admin: 06/30/17 10:43 Dose: 1 gm Oxcarbazepine (Trileptal) 150 [facility] [place] [facility] Reason: Protocol Last Admin: 06/30/17 10:42 Dose: 150 mg Oxycodone/Acetaminophen (Percocet 5/325 Mg Tab) 1 tab PO Q6H PRN PRN Reason: Pain, severe (8-10) Stop: 07/02/17 13:00 Last Admin: 06/30/17 10:46 Dose: 1 tab Oxycodone/Acetaminophen (Percocet 5/325 Mg Tab) 2 tab PO Q4H PRN PRN Reason: Pain, moderate (4-7) Stop: 07/02/17 15:12 Last Admin: 06/30/17 02:43 Dose: 2 tab Pantoprazole Sodium (Protonix Ec Tab) 40 mg PO ACB [facility] Last Admin: 06/30/17 10:46 Dose: 40 mg Potassium Chloride (K-Dur 20 Meq Er Tab) 20 meq PO DAILY [facility] Last Admin: 06/30/17 10:41 Dose: 20 meq Tamsulosin HCl (Flomax) 0.4 mg PO DAILY [facility] Last Admin: 06/30/17 10:40 Dose: 0.4 mg Warfarin Sodium (Coumadin) 3 mg PO 1800 [place] PRN Reason: Protocol Last Admin: 06/29/17 17:20 Dose: 3 mg Results - Vital Signs Recent Vital Signs: Last Vital Signs Temp 98.1 F 06/30/17 13:03 Pulse 60 06/30/17 14:00 Resp 18 06/30/17 13:03 BP 157/81 H 06/30/17 13:03 Pulse Ox 97 06/30/17 05:54 - Labs Result Diagrams: 06/30/17 06:00 06/30/17 06:00 Labs: Laboratory Results - last 24 hr 06/29/17 06/30/17 06/30/17 21:41 06:00 06:00 WBC RBC Hgb Hct MCV MCH MCHC RDW Plt Count MPV Gran % Lymph % (Auto) [place] % (Auto) Eos % (Auto) Baso % (Auto) Gran # Lymph # [place] # Eos # Baso # PT 13.1 H INR 1.19 H Sodium 142 Potassium 3.9 Chloride 107 Carbon Dioxide 23 Anion Gap 16 BUN 19 Creatinine 1.4 Est GFR ( Amer) > 60 Est GFR (Non-Af Amer) 50 POC Glucose (mg/dL) 176 H Random Glucose 119 H Calcium 8.9 Phosphorus 2.4 L Magnesium 1.7 Total Bilirubin 2.0 H Direct Bilirubin 1.5 H AST 143 H D ALT 150 H Alkaline Phosphatase 167 H D Total Protein 7.4 Albumin 3.5 Globulin 3.8 Albumin/Globulin Ratio 0.9 L 06/30/17 06/30/17 06/30/17 06:00 07:28 11:05 WBC 13.4 H D RBC 3.86 Hgb 12.3 L Hct 35.1 L MCV 90.9 MCH 31.9 MCHC 35.0 RDW 14.8 H Plt Count 244 MPV 11.1 H Gran % 75.0 H Lymph % (Auto) 17.0 L [place] % (Auto) 6.7 H Eos % (Auto) 1.0 L Baso % (Auto) 0.3 Gran # 10.07 H Lymph # 2.3 [place] # 0.9 H Eos # 0.1 Baso # 0.04 PT INR Sodium Potassium Chloride Carbon Dioxide Anion Gap BUN Creatinine Est GFR ( Amer) Est GFR (Non-Af Amer) POC Glucose (mg/dL) 157 H 166 H Random Glucose Calcium Phosphorus Magnesium Total Bilirubin Direct Bilirubin AST ALT Alkaline Phosphatase Total Protein Albumin Globulin Albumin/Globulin Ratio 06/30/17 15:57 WBC RBC Hgb Hct MCV MCH MCHC RDW Plt Count MPV Gran % Lymph % (Auto) [place] % (Auto) Eos % (Auto) Baso % (Auto) Gran # Lymph # [place] # Eos # Baso # PT INR Sodium Potassium Chloride Carbon Dioxide Anion Gap BUN Creatinine Est GFR ( Amer) Est GFR (Non-Af Amer) POC Glucose (mg/dL) 101 Random Glucose Calcium Phosphorus Magnesium Total Bilirubin Direct Bilirubin AST ALT Alkaline Phosphatase Total Protein Albumin Globulin Albumin/Globulin Ratio Assessment & Plan - Assessment and Plan (Free Text) Assessment: Sepsis-Cholecystitis/cholelithiasis HT CAD-Bioprosthetic mitral valve replacement Atrial fibrillation Pacemaker EF 50% [place] Reverse anticoagulation/HIDA SCAN NB MRCP IS CONTRAINDICATED(pacer) Surgery will likely be needed This consultation done under my direct supervision Chele Gomez MD FACS
[2017-06-27] MEDS ORDERED: Phytonadione 10 mg/ml Inj (Adult) SC ONE (20:07)
[2017-06-27] MEDS ORDERED: Sodium Chloride 0.9% 1,000 ML IV SCH (21:00)
--- NOTE | 2017-06-27 21:08 | CP.PCM.PCO ---
Physician Communication Note - Physician Communication Note Physician Communication Note: Sepsis-Prob Cholecystitis/HIDA Pending/PT Reversing now
[2017-06-27] MEDS: metroNIDAZOLE IV 500 mg/100 ml 500 MG/100 ML BAG IVPB SCH (21:59)
[2017-06-27] MEDS: Sodium Chloride 0.9% 1,000 ML IV SCH (22:30)
--- NOTE | 2017-06-27 23:34 | CON ---
DATE: 06/27/2017 REASON FOR CONSULTATION: Abnormal LFTs and sepsis. HISTORY OF PRESENT ILLNESS: This 71-year-old patient with a past medical history of atrial fibrillation, coronary artery disease, hypertension, dyslipidemia, diabetes mellitus, status post CVA on Coumadin, was brought to the hospital for complaints of some abdominal pain and weakness, nausea and lightheadedness. The patient also had an episodes of loose bowel movement for the past 2 days. He was noticed to have a dark urine than usual. In the ER, he was found to have a temperature of 101. The patient is also complaining of some abdominal pain, diffuse. The patient is also noticed to have a gallstones. The patient had an ultrasound than found to have a gallstone. CBD was normal. The patient was started on Zosyn one dose in the ER. Cultures are done. PAST MEDICAL HISTORY: Other past medical history significant for history of gastroesophageal reflux disease. He had an endoscopy done in 12/2016. It showed a Martinez's oesophagus, negative for dysplasia. The patient did have a colonoscopy done in 2015, he was found to have a colon polyps, they were non-adenomatous polyp. His other past medical also include status post pacemaker placement. ALLERGIES: NO KNOWN DRUG ALLERGY. FAMILY HISTORY: Noncontributory. SOCIAL HISTORY: He is an ex-smoker. Denies alcohol, quit many years ago. REVIEW OF SYSTEMS: Positive as above. Other systems reviewed negative. PHYSICAL EXAMINATION: GENERAL: The patient is lying on the bed, not in acute distress. VITAL SIGNS: Temperature is 99.1, T-max was 101.3, blood pressure 117/53, and respirations 20. HEENT: Atraumatic, anicteric, and jaundiced. NECK: Supple. HEART: S1, S2 heard, irregular. LUNGS: Bilateral air entry present. ABDOMEN: Soft. Have some mild diffuse tenderness present more towards the right upper quadrant area. There is no rebound or guarding. EXTREMITIES: No cyanosis. No clubbing. NEUROLOGICAL: Alert, oriented, moves all the extremities. LABORATORY DATA: WBC count elevated to 12.1, hemoglobin 12.6, hematocrit 37.1, and platelets 226. Chemistry shows total bilirubin has elevated to 2.8, AST 295, ALT is 166, and alkaline phosphatase is normal. CT scan of the abdomen and pelvis done which was reviewed. The ultrasound showed gallstones. CBD normal 0.5 mm. IMPRESSION: This 71-year-old patient with history of diabetes mellitus, hypertension, dyslipidemia, and coronary artery disease, presents now with acute onset of abdominal pain, nausea and the patient is now jaundiced and the patient does have gallstones. Likely we need to rule out. Alkaline phosphatase is normal. We need to rule out acute cholecystitis in his condition. CBD stone as another differential diagnosis, though less likely in view of the normal alkaline phosphate and his normal common bile duct, would recommend: 1. We will start the patient on ceftriaxone 1 g IV stat. 2. Request for urine analysis and culture. 3. Request for a stool culture and C. diff in view of the history of diarrhea before. The patient did not have any diarrhea now. 4. We will get an ID evaluation. 5. We will get also surgical evaluation. The patient has a pacemaker, he is not a candidate for an MRCP. Followup the LFTs and request for HIDA scan. Further evaluation will be based on the clinical course. Thank you very much for allowing us to participate in the care of the patient. Stacey Tolentino MD [facility]
--- NOTE | 2017-06-28 01:42 | CON ---
DATE: 06/27/2017 PULMONARY CONSULTATION REFERRING PHYSICIAN: Dr. Corbin. REASON FOR CONSULTATION: He has a history of chronic lung disease, sleep apnea syndrome. HISTORY OF PRESENT ILLNESS: This is a 71-year-old gentleman known to me from office on previous admission, who comes in ER with frequent bowel movement, abdominal pain, found to have a right upper quadrant tenderness, GI consult is being called. Family is at bedside. No fever. No chills. He did have some nausea. No chest pain. No leg pain or leg swelling. PAST MEDICAL HISTORY: Atrial fibrillation, coronary artery disease, hypertension, hyperlipidemia, diabetes, history of stroke, sleep apnea syndrome, history of CVA, coronary artery disease, history of RI,also history of valve repair, history of cardiac pacemaker, hypothyroid. SOCIAL HISTORY: No smoker. Nondrinker. ALLERGIES: NONE KNOWN. FAMILY HISTORY: No significant cardiopulmonary disease reported. MEDICATIONS: He has given one dose of vitamin D p.o., Flagyl 500 mg q. 8 hours, Flomax 0.4 mg daily, metformin 500 mg twice a day, insulin coverage, potassium 20 mEq daily, Lasix 40 mg daily, metoprolol tartrate 25 mg twice a day, Lovaza 1 g twice a day, Protonix 40 mg daily, Synthroid 25 mcg daily, Tricor 145 mg daily, Trileptal 150 mg q. a.m., vitamin B12 100 mg p.o. daily, Zestril 10 mg daily. REVIEW OF SYSTEMS: No headache. No rhinitis. No cough. No sputum production. Has nausea, abdominal pain. Frequent bowel movement. No leg pain. No leg swelling. PHYSICAL EXAMINATION GENERAL: Lying in the bed, mild to moderate abdominal pain. VITAL SIGNS: Temperature is 101, heart rate is 95, respiratory rate is 20, blood pressure 134/60, pulse ox 95% on room air. HEENT: Moist mucous membrane. Crowded airway. Mallampati score is IV. NECK: Short, thick neck. LUNGS: Scattered rhonchi. HEART: S1 and S2. ABDOMEN: Distended. Positive bowel sounds. Tender of the epigastrium of right upper quadrant. EXTREMITIES: Not much edema. NEUROLOGIC: Awake, alert. Follow simple command. LABORATORY DATA: Shows hemoglobin of 12.6, hematocrit of 37.1, WBC 12.1, platelets is 226. INR 2.35. VBG shows pH shows 7.36, pCO2 41, O2 41. Sodium 135, potassium 4.1, chloride 102, bicarbonate 22, BUN 21, creatinine 1.6, glucose 196, calcium 9.1, total bilirubin 2.8. AST 295, ALT 166. Alkaline phosphatase 94, albumin 3.8. Blood culture has gram-negative jonathan. Chest x-ray done shows no infiltrate or effusion. Abdominal ultrasound done shows cholelithiasis. Had CT of the abdomen done shows diverticulosis without definite CT evidence of diverticulitis. There is also right lower lobe calcified granuloma of the lung. Probably have a cholelithiasis with cholecystitis, history of small bowel obstruction in the past, coronary artery disease, history of coronary bypass surgery, hypertension, hypothyroid, atrial fibrillation, diabetes. Case discussed with nursing staff. The patient was placed on cefepime, small dose of Dilaudid for severe pain. Surgical consult Dr. Brown is called. GI already is seen the patient. Infectious Disease consult is being called. We will cover p.o. medications. Follow up labs in the morning. Waiting for HIDA scan. If sedated, need close cardiopulmonary monitoring because of sleep apnea risk. Thank you and we will follow with you. John Steele MD
[2017-06-28] MEDS: metroNIDAZOLE IV 500 mg/100 ml 500 MG/100 ML BAG IVPB SCH ×3 (06:24→21:34)
[2017-06-28] MEDS: Sodium Chloride 0.9% 1,000 ML IV SCH ×3 (06:25→21:34)
[2017-06-28 07:10] LABS: MEAN CELL VOLUME 89.8 fl (80.0-105.0); MEAN CORPUSCULAR HEMOGLOBIN 30.7 pg (25.0-35.0); MEAN CORPUSCULAR HGB CONC 34.2 g/dl (31.0-37.0); MEAN PLATELET VOLUME 10.4 fl (7.0-11.0); RBC 3.91 10^6/uL (3.5-6.1); RED CELL DISTRIBUTION WIDTH 14.2 % (11.5-14.5)
[2017-06-28 07:18] LABS: WHITE BLOOD COUNT 20.6 10^3/ul (4.5-11.0)
[2017-06-28 07:30] LABS: ALBUMIN 3.5 g/dL (3.0-4.8); ALT/SGPT 171 U/L (7-56); AST/SGOT 268 U/L (17-59); BLOOD UREA NITROGEN 29 mg/dL (7-21); CALCIUM 8.7 mg/dL (8.4-10.5); GFR AFRICAN-AMERICAN 28; GFR NON-AFRICAN AMERICAN 24; HDL CHOLESTEROL 17 mg/dL (29-60); PROTHROMBIN TIME 21.3 SECONDS (9.4-12.5)
[2017-06-28 07:31] LABS: INR 1.91 (0.93-1.08)
[2017-06-28 07:38] LABS: LDL CHOLESTEROL < 30 mg/dL (0-129)
[2017-06-28] MEDS: Insulin Reg-LOW-Coverage SC SCH ×4 (08:00→22:51)
--- NOTE | 2017-06-28 08:10 | CP.PCM.PN ---
Subjective - Date & Time of Evaluation Date of Evaluation: 06/28/17 Time of Evaluation: 06:30 - Subjective Subjective: General Surgery- Dr. Gomez Patient seen and examined at bedside this AM. No acute events overnight. nursing notes reviewed. Patient states abdominal pain is significantly improved. Denies F/C CP/SOB N/V/D. No flatus overnight Objective - Vital Signs/Intake and Output Vital Signs (last 24 hours): Temp Pulse Resp BP Pulse Ox 98.1 F 60 18 94/57 L 95 06/28/17 06:00 06/28/17 06:00 06/28/17 06:00 06/28/17 06:00 06/28/17 06:00 - Medications Medications: Current Medications Cyanocobalamin (Vitamin B12 100 Mcg Tab) 100 mcg PO BID [facility] Last Admin: 06/27/17 17:32 Dose: 100 mcg Ergocalciferol (Drisdol 50,000 Intl Units Cap) 1 cap PO Q7D [facility] Last Admin: 06/27/17 13:14 Dose: 1 cap Fenofibrate (Tricor) 145 mg PO DAILY [facility] Last Admin: 06/27/17 11:55 Dose: 145 mg Furosemide (Lasix) 40 mg PO QAM [facility] Last Admin: 06/27/17 11:56 Dose: 40 mg Hydromorphone HCl (Dilaudid) 0.5 mg IVP Q3H PRN PRN Reason: Pain, severe (8-10) Ceftriaxone Sodium 1 gm/ (Sodium Chloride) 100 mls @ 100 mls/hr IVPB DAILY [facility] Last Admin: 06/27/17 15:11 Dose: 100 mls/hr Metronidazole (Flagyl) 500 mg in 100 mls @ 100 mls/hr IVPB Q8 [facility] PRN Reason: Protocol Last Admin: 06/28/17 06:24 Dose: 100 mls/hr Sodium Chloride (Sodium Chloride 0.9%) 1,000 mls @ 125 mls/hr IV .Q8H [facility] Last Admin: 06/28/17 06:25 Dose: Not Given Ibuprofen (Motrin Tab) 400 mg PO Q6H PRN PRN Reason: Fever >100.4 F Insulin Human Regular (Humulin R Low) 0 units SC ACHS [facility] PRN Reason: Protocol Last Admin: 06/27/17 16:55 Dose: Not Given Levothyroxine Sodium (Synthroid) 25 mcg PO QAM [facility] Last Admin: 06/27/17 11:56 Dose: 25 mcg Lisinopril (Zestril) 10 mg PO QAM [facility] Last Admin: 06/27/17 11:55 Dose: 10 mg Metformin HCl (Glucophage) 500 mg PO BIDWM [facility] Last Admin: 06/27/17 17:33 Dose: 500 mg Metoprolol Tartrate (Lopressor) 25 mg PO BID [facility] Last Admin: 06/27/17 17:33 Dose: 25 mg Brhel-3-Ebiu Ethyl Esters (Lovaza) 1 gm PO DAILY [facility] Last Admin: 06/27/17 11:55 Dose: 1 gm Oxcarbazepine (Trileptal) 150 mg PO QAM [facility] PRN Reason: Protocol Last Admin: 06/27/17 11:55 Dose: 150 mg Pantoprazole Sodium (Protonix Inj) 40 mg IVP DAILY [facility] Potassium Chloride (K-Dur 20 Meq Er Tab) 20 meq PO DAILY [facility] Tamsulosin HCl (Flomax) 0.4 mg PO DAILY [facility] Last Admin: 06/27/17 11:55 Dose: 0.4 mg - Labs Labs: 06/28/17 06:45 06/28/17 06:45 PT 21.3 SECONDS (9.4-12.5) H 06/28/17 06:45 INR 1.91 (0.93-1.08) H 06/28/17 06:45 APTT 34.0 Seconds (25.1-36.5) 06/28/17 06:45 - Constitutional Appears: Non-toxic, No Acute Distress - Head Exam Additional comments: sublingual jaundice - Eye Exam Eye Exam: EOMI - ENT Exam ENT Exam: Mucous Membranes Moist - Respiratory Exam Respiratory Exam: NORMAL BREATHING PATTERN. absent: Accessory Muscle Use, Chest Wall Tenderness - Cardiovascular Exam Cardiovascular Exam: +S1, +S2. absent: Bradycardia, Tachycardia - GI/Abdominal Exam GI & Abdominal Exam: Distended, Soft, Tenderness. absent: Firm, Guarding, Rigid Additional comments: tender to palpation in RUQ +Solis distended, normal belly - Neurological Exam Neurological Exam: Alert, Awake, Oriented x3 - Psychiatric Exam Psychiatric exam: Normal Affect - Skin Skin Exam: Intact, Warm Assessment and Plan - Assessment and Plan (Free Text) Assessment: 71M w/ RUQ pain. Cholecystitis vs choledocolithiasis; GNR bacteremia Plan: - f/u HIDA results - FFP and Type and cross- optimize for potential surgery - NPO - serial abd exams - IVF/Abx - repeat INR - further recs per Dr. Gomez surgical attending Winston Lowry PGY1
--- NOTE | 2017-06-28 09:13 | HP ---
CHIEF COMPLAINT: Abdominal pain. HISTORY OF PRESENT ILLNESS: Mr. Tk Woodard is 71 years old male, my private patient with history of atrial fibrillation, CABG, hypertension, hypercholesterolemia, diabetes mellitus, stroke, came to the emergency room with his son complaining of abdominal pain since yesterday. Son informed me that the patient has been feeling a sharp epigastric pain associated with the dizziness, nausea, and lightheadedness. The son also informed that the patient experienced diarrhea for two days and is yellower than his usual urine. Son states the patient was seen in the emergency department on 12/24/2016 for similar symptoms. Son denies any chest pain, shortness of breath. Son did translation for the patient. No hematuria. No hematochezia. PAST MEDICAL HISTORY: As above. History of ID, open heart surgery with valve replacement in 2011, pacemaker battery change in 2010, LILA, history of stroke, diabetes mellitus type 2, hypothyroidism, history of right hand surgery. FAMILY HISTORY: Father and mother noncontributory. HABITS: No alcohol. No substance abuse. No smoking. ALLERGIES: THE PATIENT IS NOT ALLERGIC TO ANY MEDICATIONS. HOME MEDICATIONS: Fenofibrate, Trileptal, metformin, Lasix, pantoprazole, vitamin B12, levothyroxine, lisinopril, Lopressor, vitamin D, Flomax, Coumadin. REVIEW OF SYSTEMS: The patient is seen and examined at the bedside in his room, sitting on the chair complaining about abdominal pain. No fever. No chills. Has diarrhea, nausea. Absent hematuria. Dizziness present, lightheadedness also. PHYSICAL EXAMINATION: VITAL SIGNS: Temperature 101.3, pulse 92, respirations 15, blood pressure 120/94, pulse oximetry 96. HEENT: Head normocephalic, atraumatic. Eyes: PERRLA. Extraocular muscles are intact. Conjunctivae clear. Nose patent. Mucous membranes moist. NECK: Supple. No carotid bruit, JVD or thyromegaly. CHEST: Bilaterally symmetrical. HEART: S1 and S2 positive. LUNGS: Clear to auscultation. ABDOMEN: Soft. Bowel sounds present. No organomegaly. EXTREMITIES: No edema. No cyanosis. NEUROLOGIC: The patient is awake and alert. Moving all 4 extremities. No focal deficits. LABORATORY DATA: White blood cell 7.0, hemoglobin 13.8, hematocrit 40.9, platelets 251,00. Sodium 132, potassium 4.4. BUN 25, creatinine of 1.7, glucose 188. ASSESSMENT AND PLAN: Mr. Tk Woodard is 71 years old male with anemia, renal insufficiency, came with fever, rule out sepsis, history of atrial fibrillation, coronary artery bypass graft, hypertension, hypercholesterolemia, diabetes mellitus, stroke, lightheadedness, cerebrovascular accident, anemia status post blood transfusion. CAT scan of the abdomen done, it showed diverticulosis without CT evidence of diverticulitis. Call Code Sepsis. Lactate 2.2, band neutrophil 114, has a fever. Dr. Tolentino confirmed the call, admitted the patient. Surgical consult call also seen by Dr. Steele, started on Dilaudid. Gastrointestinal and deep venous thrombosis prophylaxis. Repeat labs. We will follow up. Holly Corbin MD cc: MTDD
[2017-06-28] MEDS: Potassium Chloride 20 mEq ER Tab PO SCH (09:41)
[2017-06-28] MEDS: Levothyroxine 25 MCG TAB PO SCH (09:41)
[2017-06-28] MEDS ORDERED: Cefepime 1gm in NS 100ml 1 GM/100 ML BAG IVPB SCH (10:00)
[2017-06-28 10:44] LABS: HEPATITIS B SURFACE AG NEGATIVE (NEGATIVE)
[2017-06-28 10:51] LABS: HEPATITIS A IGM NEGATIVE (NEGATIVE)
[2017-06-28 10:59] LABS: HEPATITIS B CORE AB Negative (NEGATIVE)
[2017-06-28 11:02] LABS: HEPATITIS C ANTIBODY Negative (NEGATIVE)
[2017-06-28 11:21] LABS: FOLATE 5.2 ng/mL
--- NOTE | 2017-06-28 11:56 | CP.PCM.PN ---
Subjective - Date & Time of Evaluation Date of Evaluation: 06/28/17 Time of Evaluation: 11:30 - Subjective Subjective: Infectious Disease Follow Up: June 28, 2017 71 yo male brought to [facility] [place] for 1 day history of abdominal pain. The patient was found to have fevers up to 101.3 F. Mild leukocytosis with a left shift. Diarrhea episodes for the past two days. Patient with sharp epigastric pains with dizziness, nausea, and lightheadedness. No other symptoms given on admission. CT scan with signs of diverticulosis. Cholelithiasis on Abdominal ultrasound. He states pain is decreased today. Objective - Vital Signs/Intake and Output Vital Signs (last 24 hours): Temp Pulse Resp BP Pulse Ox 98.1 F 60 18 94/57 L 95 06/28/17 06:00 06/28/17 10:10 06/28/17 06:00 06/28/17 10:10 06/28/17 06:00 - Medications Medications: Current Medications Cyanocobalamin (Vitamin B12 100 Mcg Tab) 100 mcg PO BID [facility] Last Admin: 06/28/17 09:43 Dose: 100 mcg Ergocalciferol (Drisdol 50,000 Intl Units Cap) 1 cap PO Q7D [facility] Last Admin: 06/27/17 13:14 Dose: 1 cap Fenofibrate (Tricor) 145 mg PO DAILY [facility] Last Admin: 06/27/17 11:55 Dose: 145 mg Furosemide (Lasix) 40 mg PO QAM [facility] Last Admin: 06/28/17 10:06 Dose: Not Given Hydromorphone HCl (Dilaudid) 0.5 mg IVP Q3H PRN PRN Reason: Pain, severe (8-10) Ceftriaxone Sodium 1 gm/ (Sodium Chloride) 100 mls @ 100 mls/hr IVPB DAILY [facility] Last Admin: 06/28/17 09:45 Dose: 100 mls/hr Metronidazole (Flagyl) 500 mg in 100 mls @ 100 mls/hr IVPB Q8 [facility] PRN Reason: Protocol Last Admin: 06/28/17 06:24 Dose: 100 mls/hr Sodium Chloride (Sodium Chloride 0.9%) 1,000 mls @ 125 mls/hr IV .Q8H [facility] Last Admin: 06/28/17 06:25 Dose: Not Given Ibuprofen (Motrin Tab) 400 mg PO Q6H PRN PRN Reason: Fever >100.4 F Insulin Human Regular (Humulin R Low) 0 units SC ACHS [facility] PRN Reason: Protocol Last Admin: 06/28/17 08:00 Dose: Not Given Levothyroxine Sodium (Synthroid) 25 mcg PO QAM [facility] Last Admin: 06/28/17 09:41 Dose: 25 mcg Lisinopril (Zestril) 10 mg PO QAM [facility] Last Admin: 06/28/17 10:10 Dose: Not Given Metformin HCl (Glucophage) 500 mg PO BIDWM [facility] Last Admin: 06/27/17 17:33 Dose: 500 mg Metoprolol Tartrate (Lopressor) 25 mg PO BID [facility] Last Admin: 06/28/17 10:06 Dose: Not Given Wqusw-5-Fond Ethyl Esters (Lovaza) 1 gm PO DAILY [facility] Last Admin: 06/27/17 11:55 Dose: 1 gm Oxcarbazepine (Trileptal) 150 mg PO QAM [facility] PRN Reason: Protocol Last Admin: 06/27/17 11:55 Dose: 150 mg Pantoprazole Sodium (Protonix Inj) 40 mg IVP DAILY [facility] Last Admin: 06/28/17 09:44 Dose: 40 mg Phytonadione (Vitamin K Tab) 5 mg PO STAT [facility] Stop: 06/28/17 11:37 Potassium Chloride (K-Dur 20 Meq Er Tab) 20 meq PO DAILY [facility] Last Admin: 06/28/17 09:41 Dose: 20 meq Tamsulosin HCl (Flomax) 0.4 mg PO DAILY [facility] Last Admin: 06/27/17 11:55 Dose: 0.4 mg - Labs Labs: 06/28/17 06:45 06/28/17 06:45 PT 21.3 SECONDS (9.4-12.5) H 06/28/17 06:45 INR 1.91 (0.93-1.08) H 06/28/17 06:45 APTT 34.0 Seconds (25.1-36.5) 06/28/17 06:45 - Constitutional Appears: Non-toxic, No Acute Distress, Chronically Ill - Head Exam Head Exam: ATRAUMATIC, NORMOCEPHALIC - Eye Exam Eye Exam: EOMI, PERRL Pupil Exam: NORMAL ACCOMODATION, PERRL - ENT Exam ENT Exam: Mucous Membranes Moist, Normal External Ear Exam, TM's Normal Bilaterally - Neck Exam Neck Exam: Full ROM, Normal Inspection - Respiratory Exam Respiratory Exam: Clear to Ausculation Bilateral, NORMAL BREATHING PATTERN. absent: Rales, Rhonchi, Wheezes - Cardiovascular Exam Cardiovascular Exam: REGULAR RHYTHM, RRR, +S1, +S2 - GI/Abdominal Exam GI & Abdominal Exam: Distended, Soft, Tenderness, Normal Bowel Sounds - Extremities Exam Extremities Exam: Full ROM, Normal Inspection - Neurological Exam Neurological Exam: Alert, Awake, CN II-XII Intact, Oriented x3 - Psychiatric Exam Psychiatric exam: Normal Affect, Normal Mood - Skin Skin Exam: Intact, Normal Color Assessment and Plan - Assessment and Plan (Free Text) Assessment: 71 yo male with abdominal pain, diarrhea, and fevers. [place] cultures sent. CT scan showing diverticulosis but no signs of diverticulitis. Fevers up to 101.3 F on admission. Cultures of stool as well as C. Diff sent for evaluation. Monitor WBC trend and fever trend. Started on Rocephin for antibiotic coverage. Add Flagyl to regimen. Seen by GI. Supportive care. Cholelithiasis on abdominal ultrasound. Awaiting HIDA scan. Thank you for allowing me to participate in the care of this patient, we will follow with you.
--- NOTE | 2017-06-28 13:35 | NM ---
PROCEDURE: Nuclear Medicine Hepatobiliary Scan HISTORY: r/o cholecystitis COMPARISON: 06/26/2017 CT abdomen and pelvis. 06/27/2017 abdominal ultrasound. TECHNIQUE: 7.6 mCi of technetium 99m Mebrofenin was administered intravenously. Planar images of the abdomen were obtained at 5 min intervals to 60 mins. Delayed images were also obtained. FINDINGS: LIVER: Heterogeneous COMMON BILE DUCT: identified at 60 mins. GALLBLADDER: Not identified at 60 mins. SMALL BOWEL: Not Identified at 60 mins. IMPRESSION: Incomplete examination. The referring surgeon elected not to extend this study tissue 8 point where it gallbladder and small bowel might be visualized.
[2017-06-28] MEDS ORDERED: Propofol 10 mg/ml Inj (20 ML) ONE (13:45)
[2017-06-28] MEDS ORDERED: Lidocaine 1% Inj (20ml) ONE (13:45)
[2017-06-28] MEDS ORDERED: Midazolam 2 MG/2 ML VIAL ONE (13:47)
[2017-06-28] MEDS ORDERED: Rocuronium 10 mg/ml (5 ml) ONE (13:47)
[2017-06-28] MEDS ORDERED: Bupivacaine 0.5% Inj(30mL) ONE (13:54)
[2017-06-28] MEDS ORDERED: Iohexol 240 (50 ml) ONE (13:54)
[2017-06-28] MEDS ORDERED: metroNIDAZOLE IV 500 mg/100 ml 500 MG/100 ML BAG ONE (14:11)
[2017-06-28] MEDS ORDERED: Neostigmine Methylsulfate 3mg/3ml Syringe IV ONE (14:40)
[2017-06-28] MEDS ORDERED: ePHEDrine 50 mg/ml Inj ONE (14:59)
[2017-06-28] MEDS ORDERED: HYDROmorphone 0.5 mg/0.5 ml ISec IVP PRN (16:04)
[2017-06-28] MEDS ORDERED: Sodium Chloride 0.9% 1,000 ML IV SCH (16:15)
--- NOTE | 2017-06-28 16:19 | PCM.SURG1 ---
Surgeon's Initial Post Op Note - Surgeon's Notes Surgeon: Dr. Dimas Lens Grinder: Hailee Ruvalcaba pGY2, PGY1 Type of Anesthesia: General Endo Pre-Operative Diagnosis: Acute cholecystitis Operative Findings: infected bile. Gallstones. Post-Operative Diagnosis: SAme Operation Performed: Lap chantel Specimen/Specimens Removed: GAllbladder , bile Estimated Blood Loss: EBL {In ML}: 100 Blood Products Given: FFP Drains Used: Greg Post-Op Condition: Good Date of Surgery/Procedure: 06/28/17 Time of Surgery/Procedure: 16:18
--- NOTE | 2017-06-28 17:44 | CON ---
DATE: 06/28/2017 REASON FOR CONSULTATION: Preop evaluation, risk stratification of possible cholecystectomy, Gram-negative sepsis, coronary artery disease, chronic atrial fibrillation, status post permanent pacemaker. BRIEF CLINICAL HISTORY: A 71-year-old obese male with a past medical history significant for diabetes, hypertension, hyperlipidemia, chronic atrial fibrillation, permanent pacemaker on 09/01/2007 [employer], history of mitral stenosis, triple vessel disease, status post coronary artery bypass surgery, mitral valve repair, bioprosthetic and tricuspid annuloplasty on 08/11/2012. Admitted with abdominal pain, possible cholecystitis or choledocholithiasis, Gram-negative sepsis. Denies any chest pain, shortness of breath, or any palpitations. PAST MEDICAL HISTORY: Significant for obesity, body mass index 40 kg/m2, height of the patient is 5 feet 5 inches, weight 250 pounds, diabetes, hypertension, hyperlipidemia, coronary artery disease, status post 3-vessel CABG, saphenous vein graft to the first obtuse marginal, while internal mammary artery to LAD, saphenous vein graft to the RPDA, mitral valve replacement bioprosthetic secondary to mitral valve stenosis, tricuspid annuloplasty because of tricuspid regurgitation, history of permanent pacemaker on 09/01/2007. SOCIAL HISTORY: Denies any history of alcohol abuse. PREVIOUS CARDIAC WORKUP: As follows: The patient had a pacemaker generator change on 10/21/2014, single chamber VVI pacemaker changed since they are dated 10/21/2014. The patient had a stress test on 02/23/2016 that showed probably abnormal myocardial perfusion study, fixed defect, distal anteroseptal suggestive of pervious injury, no ischemia noted when compared from 10/30/2013, no significant change noted, ejection fraction 52%. The patient's last echo on 10/04/2014, that showed ejection fraction 55% borderline LVH, paradoxical septal movement, pacemaker lead noted, RARV, mild mitral regurgitation, bioprosthetic mitral valve noted, aortic valve moderately thickened, but mild tricuspid regurgitation with RV systolic pressure of 44 mmHg. MEDICATIONS: The patient is taking at home Coumadin 3 mg daily, Flomax, potassium, metoprolol, metformin, levothyroxine, Lasix, fenofibrate, and cyanocobalamin. LABORATORY DATA: EKG shows V-paced rhythm, underlying atrial fibrillation rate of 84. REVIEW OF SYSTEMS: As per HPI. PHYSICAL EXAMINATION: VITAL SIGNS: As follows: Height of the patient 5 feet, weight of the patient is 250 pounds, body mass index 35.7 kg/m2, temperature afebrile, heart rate 60, and blood pressure 94/54. HEENT: PERRLA. Extraocular muscles intact. NECK: Supple. No carotid bruits or thyromegaly. CHEST: Clear to auscultation. HEART: S1 and S2 regular. ABDOMEN: Soft. Mild tenderness in the right upper quadrant noted. EXTREMITIES: Clubbing or cyanosis negative. LABORATORY DATA: WBC 20.6, hemoglobin 12, hematocrit 35.1, and platelet count 183. Chemistry show sodium 137, potassium 4, chloride 103, carbon dioxide 22, anion gap of 16, BUN 29, and creatinine 2.7. Blood cultures shows Gram-negative jonathan. CAT scan of the abdomen shows a diverticular chronic disease. Ultrasound of the abdomen cholelithiasis. IMPRESSION AND PLAN: Gram-negative sepsis, acute cholecystitis, possible choledocholithiasis. A 71-year-old male with past medical history significant for coronary artery, status post coronary artery bypass graft 3-vessel bypass, left internal mammary artery to left anterior descending, saphenous vein graft to obtuse marginal RPDA, history of permanent pacemaker in 2007, later on pacemaker generator changed recently, recent stress test a year ago was normal. No ischemia, preserved left ventricular function, status post mitral valve repair, status post tricuspid valve repair and mitral valve replaced bioprosthetic, chronic atrial fibrillation with intact coagulation, admitted with acute cholecystitis, Gram-negative sepsis. The patient needs to go to the OR because of underlying comorbidity, moderate to high risk, but no absolute contraindication. No evidence of acute ischemia. No evidence of acute myocardial infarction, no evidence of new arrhythmia except chronic atrial fibrillation. No history of congestive heart failure. Increased comorbidity, the patient is at [id number] risk, but risk and benefit ratio is in favor the patient to go on surgery, otherwise the patient can Gram-negative sepsis; so no absolute contraindication. Since the patient was on anticoagulation, INR was 1.91, I agree to reverse with FFP, also give 5 mg of vitamin K and continue preoperative beta uri as blood pressure is tolerated. We will monitor electrolytes. Thank you Dr. Corbin for providing the opportunity in taking care of the patient, Tk Woodard. We will follow with you. John Yo MD
[2017-06-28] MEDS: HYDROmorphone 0.5 mg/0.5 ml ISec IVP PRN (20:44)
--- NOTE | 2017-06-28 21:48 | CP.PCM.PN ---
<Susana Canela - Last Filed: 06/29/17 00:37> Subjective - Date & Time of Evaluation Date of Evaluation: 06/28/17 Time of Evaluation: 09:40 - Subjective Subjective: 71 yr male w/ history of Afib, CABG w/ mitral valve replacement 2012, pacemaker w. battery change 2010, HTN, hypercholesterolemia, DM II, stroke, COPD , sleep apnea, R hand ORIF, and hypothyroidism. Seen at bedside w/ Dr. Oscar Barrow. Pt appears comfortable, verbalized understanding of consents and current plan of care. Denies any headaches, SOB, N/V, fevers, constipation, or diarrhea. Objective - Vital Signs/Intake and Output Vital Signs (last 24 hours): Temp Pulse Resp BP Pulse Ox 98.1 F 82 15 120/65 96 06/28/17 17:00 06/28/17 17:45 06/28/17 17:00 06/28/17 17:45 06/28/17 17:00 Intake and Output: 06/28/17 06/29/17 18:59 06:59 Intake Total 75 Balance 75 - Medications Medications: Current Medications Cyanocobalamin (Vitamin B12 100 Mcg Tab) 100 mcg PO BID [facility] Last Admin: 06/28/17 17:46 Dose: 100 mcg Docusate Sodium (Colace) 100 mg PO DAILY [facility] Enoxaparin Sodium (Lovenox) 30 mg SC DAILY [facility] PRN Reason: Protocol Ergocalciferol (Drisdol 50,000 Intl Units Cap) 1 cap PO Q7D [facility] Last Admin: 06/27/17 13:14 Dose: 1 cap Fenofibrate (Tricor) 145 mg PO DAILY [facility] Last Admin: 06/27/17 11:55 Dose: 145 mg Furosemide (Lasix) 40 mg PO QAM [facility] Last Admin: 06/28/17 10:06 Dose: Not Given Hydromorphone HCl (Dilaudid) 0.5 mg IVP Q3H PRN PRN Reason: Pain, severe (8-10) Last Admin: 06/28/17 20:44 Dose: 0.5 mg Ceftriaxone Sodium 1 gm/ (Sodium Chloride) 100 mls @ 100 mls/hr IVPB DAILY [facility] Last Admin: 06/28/17 09:45 Dose: 100 mls/hr Metronidazole (Flagyl) 500 mg in 100 mls @ 100 mls/hr IVPB Q8 [facility] PRN Reason: Protocol Last Admin: 06/28/17 21:34 Dose: 100 mls/hr Sodium Chloride (Sodium Chloride 0.9%) 1,000 mls @ 125 mls/hr IV .Q8H [facility] Last Admin: 06/28/17 21:34 Dose: 125 mls/hr Ibuprofen (Motrin Tab) 400 mg PO Q6H PRN PRN Reason: Fever >100.4 F Insulin Human Regular (Humulin R Low) 0 units SC ACHS [facility] PRN Reason: Protocol Last Admin: 06/28/17 16:39 Dose: Not Given Levothyroxine Sodium (Synthroid) 25 mcg PO QAM [facility] Last Admin: 06/28/17 09:41 Dose: 25 mcg Lisinopril (Zestril) 10 mg PO QAM [facility] Last Admin: 06/28/17 10:10 Dose: Not Given Metformin HCl (Glucophage) 500 mg PO BIDWM [facility] Last Admin: 06/27/17 17:33 Dose: 500 mg Metoprolol Tartrate (Lopressor) 25 mg PO BID [facility] Last Admin: 06/28/17 17:45 Dose: 25 mg [id number] Ethyl Esters (Lovaza) 1 gm PO DAILY [facility] Last Admin: 06/27/17 11:55 Dose: 1 gm Oxcarbazepine (Trileptal) 150 mg PO QAM [facility] PRN Reason: Protocol Last Admin: 06/27/17 11:55 Dose: 150 mg Pantoprazole Sodium (Protonix Inj) 40 mg IVP DAILY [facility] Last Admin: 06/28/17 09:44 Dose: 40 mg Potassium Chloride (K-Dur 20 Meq Er Tab) 20 meq PO DAILY [facility] Last Admin: 06/28/17 09:41 Dose: 20 meq Tamsulosin HCl (Flomax) 0.4 mg PO DAILY [facility] Last Admin: 06/27/17 11:55 Dose: 0.4 mg - Labs Labs: 06/28/17 06:45 06/28/17 06:45 PT 21.3 SECONDS (9.4-12.5) H 06/28/17 06:45 INR 1.91 (0.93-1.08) H 06/28/17 06:45 APTT 34.0 Seconds (25.1-36.5) 06/28/17 06:45 - Constitutional Appears: No Acute Distress - Head Exam Head Exam: ATRAUMATIC, NORMAL INSPECTION, NORMOCEPHALIC - Eye Exam Eye Exam: Scleral icterus Pupil Exam: NORMAL ACCOMODATION, PERRL - ENT Exam ENT Exam: Mucous Membranes Moist, Normal Exam - Neck Exam Neck Exam: Full ROM, Normal Inspection. absent: Lymphadenopathy - Respiratory Exam Respiratory Exam: Clear to Ausculation Bilateral, NORMAL BREATHING PATTERN - Cardiovascular Exam Cardiovascular Exam: Irregular Rhythm, +S1, +S2. absent: Murmur - GI/Abdominal Exam GI & Abdominal Exam: Guarding, Soft, Normal Bowel Sounds. absent: Tenderness Additional comments: RUQ tenderness and guarding. Obese. - Exam Additional comments: tea colored urine. - Extremities Exam Extremities Exam: Full ROM, Normal Capillary Refill, Normal Inspection. absent : Joint Swelling, Pedal Edema - Back Exam Back Exam: NORMAL INSPECTION - Neurological Exam Neurological Exam: Alert, Awake, CN II-XII Intact, Normal Gait, Oriented x3 - Psychiatric Exam Psychiatric exam: Normal Affect, Normal Mood - Skin Skin Exam: Dry, Intact, Normal Color, Warm Assessment and Plan (1) Cholecystitis Status: Acute (2) Anemia Status: Acute (3) Bilirubinemia Status: Acute (4) Prediabetes Status: Acute (5) Hypertriglyceridemia Status: Acute (6) Elevated LFTs Status: Acute (7) Sepsis Status: Acute - Assessment and Plan (Free Text) Plan: IV Rocephin, flagyl, HIDA scan pending. Possible laprascopic surgery. Consents obtained. Consults: Cardio - Dr. Dahl = EF 52%, Gram negative sepsis recommend surgery, reverse coumadin w/ FFP & vitamin K, continue betablocker GI - Dr. Tolentino = ceftriaxone, U/A C+S, c diff culture, HIDA scan Pulmonary - = RLL calcified granuloma of lung. sleep apnea precautions. I.D. - Dr. Tamayo = added rocehpin & Flagyl. monitor WBC trend. Surgery - Dr. Gilberto Gomez = sepsis, cholecysitis, PT/INR reversing Reviewed: CXR - cardiomegaly, (+) Pacemaker WNL US of abd - (+) cholelithiasis, liver enlarged, fatty infiltration CT Abd/pelvis - (+) diverticulosis, liver fatty infiltration Xray abd - WNL ECG - Electronic ventricular pacemaker, 100% V paced, Afib <Holly Corbin - Last Filed: 06/29/17 17:38> Objective - Vital Signs/Intake and Output Vital Signs (last 24 hours): Temp Pulse Resp BP Pulse Ox 98.2 F 71 18 139/78 95 06/29/17 12:00 06/29/17 17:21 06/29/17 12:00 06/29/17 17:21 06/29/17 06:58 Intake and Output: 06/29/17 06/29/17 06:59 18:59 Intake Total 2405 480 Output Total 950 650 Balance 1455 -170 - Medications Medications: Current Medications Cyanocobalamin (Vitamin B12 100 Mcg Tab) 100 mcg PO BID [facility] Last Admin: 06/29/17 17:20 Dose: 100 mcg Docusate Sodium (Colace) 100 mg PO DAILY [facility] Last Admin: 06/29/17 10:16 Dose: 100 mg Enoxaparin Sodium (Lovenox) 30 mg SC DAILY [facility] PRN Reason: Protocol Last Admin: 06/29/17 10:15 Dose: 30 mg Ergocalciferol (Drisdol 50,000 Intl Units Cap) 1 cap PO Q7D [facility] Last Admin: 06/27/17 13:14 Dose: 1 cap Fenofibrate (Tricor) 145 mg PO DAILY [facility] Last Admin: 06/27/17 11:55 Dose: 145 mg Furosemide (Lasix) 40 mg PO QAM [facility] Last Admin: 06/29/17 10:20 Dose: 40 mg Ceftriaxone Sodium 1 gm/ (Sodium Chloride) 100 mls @ 100 mls/hr IVPB DAILY [facility] Last Admin: 06/29/17 10:17 Dose: 100 mls/hr Metronidazole (Flagyl) 500 mg in 100 mls @ 100 mls/hr IVPB Q8 [facility] PRN Reason: Protocol Last Admin: 06/29/17 15:03 Dose: 100 mls/hr Sodium Chloride (Sodium Chloride 0.9%) 1,000 mls @ 125 mls/hr IV .Q8H [facility] Last Admin: 06/29/17 06:06 Dose: Not Given Ibuprofen (Motrin Tab) 400 mg PO Q6H PRN PRN Reason: Fever >100.4 F Insulin Human Regular (Humulin R Low) 0 units SC ACHS [facility] PRN Reason: Protocol Last Admin: 06/29/17 17:20 Dose: 1 units Levothyroxine Sodium (Synthroid) 25 mcg PO QAM [facility] Last Admin: 06/29/17 10:16 Dose: 25 mcg Lisinopril (Zestril) 10 mg PO QAM [facility] Last Admin: 06/29/17 10:16 Dose: 10 mg Metformin HCl (Glucophage) 500 mg PO BIDWM [facility] Last Admin: 06/27/17 17:33 Dose: 500 mg Metoprolol Tartrate (Lopressor) 25 mg PO BID [facility] Last Admin: 06/29/17 17:21 Dose: 25 mg [id number] Ethyl Esters (Lovaza) 1 gm PO DAILY [facility] Last Admin: 06/27/17 11:55 Dose: 1 gm Oxcarbazepine (Trileptal) 150 mg PO QAM [facility] PRN Reason: Protocol Last Admin: 06/27/17 11:55 Dose: 150 mg Oxycodone/Acetaminophen (Percocet 5/325 Mg Tab) 1 tab PO Q6H PRN PRN Reason: Pain, severe (8-10) Stop: 07/02/17 13:00 Last Admin: 06/29/17 17:33 Dose: 1 tab Oxycodone/Acetaminophen (Percocet 5/325 Mg Tab) 2 tab PO Q4H PRN PRN Reason: Pain, moderate (4-7) Stop: 07/02/17 15:12 Pantoprazole Sodium (Protonix Ec Tab) 40 mg PO ACB [facility] Potassium Chloride (K-Dur 20 Meq Er Tab) 20 meq PO DAILY [facility] Last Admin: 06/29/17 10:15 Dose: 20 meq Tamsulosin HCl (Flomax) 0.4 mg PO DAILY [facility] Last Admin: 06/27/17 11:55 Dose: 0.4 mg Warfarin Sodium (Coumadin) 3 mg PO 1800 [facility] PRN Reason: Protocol Last Admin: 06/29/17 17:20 Dose: 3 mg - Labs Labs: 06/29/17 06:00 06/29/17 06:00 PT 13.9 SECONDS (9.4-12.5) H 06/29/17 06:00 INR 1.26 (0.93-1.08) H 06/29/17 06:00 APTT 34.0 Seconds (25.1-36.5) 06/28/17 06:45 Assessment and Plan - Assessment and Plan (Free Text) Plan: pt is seen and examined at bed side , going for surgery , by dr martinez , looking comfortable , no n,v,d and constepation . agreed all above , cont. same treatment . npo . will f/u
--- NOTE | 2017-06-28 22:29 | PN ---
PULMONARY PROGRESS NOTE DATE: 06/28/2017 REFERRING PHYSICIAN: Holly Corbin MD SUBJECTIVE: He is lying on the bed, status post laparoscopic cholecystectomy, had a gallstone, acute cystitis. No headache. No rhinitis. No nausea. No vomiting or diarrhea. Mild abdominal pain. No leg pain or leg swelling. OBJECTIVE: GENERAL: In no acute distress. VITAL SIGNS: Temperature 98, heart rate 86, respiratory is 16, blood pressure 120/65, pulse ox 96% on 3 L nasal cannula. HEENT: Moist mucous membrane. Crowded airway. NECK: Short thick neck. LUNGS: Has a fair airflow with rhonchi. HEART: S1 and S2. ABDOMEN: Positive bowel sounds. Surgical area looks okay. Has a drainage catheter. EXTREMITIES: There is no edema. NEUROLOGIC: Awake and alert. Follow simple commands. LABORATORY DATA: Shows hemoglobin 12.5, hematocrit 35.1, WBC is 20,000, and platelet count is 183. INR 1.91 and PTT is 34. Sodium 137, potassium 4.0, chloride 106, bicarbonate 22, BUN 29, creatinine 2.7, glucose is 132, hemoglobin A1c is 6, calcium is 8.7, AST is 268, ALT 171, albumin is 3.5, cholesterol is 103, folate is 5.2. Microbiology: Blood culture has a gram-negative jonathan. Nuclear scan, HIDA scan, gallbladder was not visualized. MEDICATIONS: He is on Rocephin 1 g IV daily, Colace 100 mg daily, Dilaudid 0.5 mg q. 3 hours p.r.n., vitamin D 50,000 units a week, Flagyl 500 mg q. 8 hours, Flomax 0.4 mg daily, metformin 500 mg twice a day, insulin coverage, potassium 20 mEq daily, Lasix 40 mg daily, metoprolol tartarate 25 mg twice a day, Lovaza 1 g daily, Motrin 400 mg q. 6 hours p.r.n., Protonix 40 mg daily, IV fluid normal saline 125 mL per hour, Synthroid 25 mcg daily, Tricor 145 mg daily, vitamin B12 daily, Zestril 10 mg daily, which is on hold. IMPRESSION AND PLAN: Cholelithiasis, right lung calcified granuloma, chronic obstructive lung disease, sleep apnea syndrome, history of coronary artery disease, history of coronary artery bypass surgery in the past, hypertension, hypothyroid, atrial fibrillation, diabetes, morbid obesity status post laparoscopic cholecystectomy. Continue antibiotics. Continue bronchodilator. Keep head at 45 degree. Sleep apnea precaution. Avoid sedation. The patient refused to CPAP/BiPAP. Gastric prophylaxis. Deep venous thrombosis prophylaxis. Follow up labs in the morning. Thank you and we will follow with you. John Steele MD
[2017-06-29] MEDS: Sodium Chloride 0.9% 1,000 ML IV SCH ×2 (03:09→06:06)
[2017-06-29] MEDS: metroNIDAZOLE IV 500 mg/100 ml 500 MG/100 ML BAG IVPB SCH ×3 (05:08→21:25)
[2017-06-29] MEDS: HYDROmorphone 0.5 mg/0.5 ml ISec IVP PRN ×2 (05:13→10:29)
[2017-06-29 06:41] LABS: BASO # 0.01 K/mm3 (0.0-2.0); BASO % 0.1 % (0.0-3.0); EOS % 0.4 % (1.5-5.0); GRAN # 9.27 (1.4-6.5); GRAN % 83.7 % (50.0-68.0); LYMPH % 8.8 % (22.0-35.0); MEAN CELL VOLUME 90.7 fl (80.0-105.0); MEAN CORPUSCULAR HEMOGLOBIN 30.1 pg (25.0-35.0); MEAN CORPUSCULAR HGB CONC 33.1 g/dl (31.0-37.0); MONO # 0.8 (0.1-0.6); RBC 3.66 10^6/uL (3.5-6.1); RED CELL DISTRIBUTION WIDTH 14.7 % (11.5-14.5); WHITE BLOOD COUNT 11.1 10^3/ul (4.5-11.0)
[2017-06-29 06:44] LABS: INR 1.26 (0.93-1.08); PROTHROMBIN TIME 13.9 SECONDS (9.4-12.5)
[2017-06-29 07:43] LABS: ALB/GLOB RATIO 0.9 (1.1-1.8); ALBUMIN 3.1 g/dL (3.0-4.8); CALCIUM 8.2 mg/dL (8.4-10.5); MAGNESIUM 1.7 mg/dL (1.7-2.2)
[2017-06-29] MEDS: Insulin Reg-LOW-Coverage SC SCH ×3 (07:45→17:20)
--- NOTE | 2017-06-29 09:24 | CP.PCM.PN ---
Subjective - Date & Time of Evaluation Date of Evaluation: 06/29/17 Time of Evaluation: 07:00 - Subjective Subjective: General Surgery note - Dr. Gomez Patient seen and examined at bedside. No acute events reported overnight. Patient indicates abdominal discomfort suprapubic area and associated with incision site. Patient denies chest pain, shortness of breath, nausea, vomiting , fever, chills, diarrhea. Objective - Vital Signs/Intake and Output Vital Signs (last 24 hours): Temp Pulse Resp BP Pulse Ox 99.1 F 63 20 135/69 95 06/29/17 06:58 06/29/17 06:58 06/29/17 06:58 06/29/17 06:58 06/29/17 06:58 Intake and Output: 06/29/17 06/29/17 06:59 18:59 Intake Total 2405 Output Total 950 Balance 1455 - Medications Medications: Current Medications Cyanocobalamin (Vitamin B12 100 Mcg Tab) 100 mcg PO BID [facility] Last Admin: 06/28/17 17:46 Dose: 100 mcg Docusate Sodium (Colace) 100 mg PO DAILY [facility] Enoxaparin Sodium (Lovenox) 30 mg SC DAILY [facility] PRN Reason: Protocol Ergocalciferol (Drisdol 50,000 Intl Units Cap) 1 cap PO Q7D [facility] Last Admin: 06/27/17 13:14 Dose: 1 cap Fenofibrate (Tricor) 145 mg PO DAILY [facility] Last Admin: 06/27/17 11:55 Dose: 145 mg Furosemide (Lasix) 40 mg PO QAM [facility] Last Admin: 06/28/17 10:06 Dose: Not Given Hydromorphone HCl (Dilaudid) 0.5 mg IVP Q3H PRN PRN Reason: Pain, severe (8-10) Last Admin: 06/29/17 05:13 Dose: 0.5 mg Ceftriaxone Sodium 1 gm/ (Sodium Chloride) 100 mls @ 100 mls/hr IVPB DAILY [facility] Last Admin: 06/28/17 09:45 Dose: 100 mls/hr Metronidazole (Flagyl) 500 mg in 100 mls @ 100 mls/hr IVPB Q8 [facility] PRN Reason: Protocol Last Admin: 06/29/17 05:08 Dose: 100 mls/hr Sodium Chloride (Sodium Chloride 0.9%) 1,000 mls @ 125 mls/hr IV .Q8H [facility] Last Admin: 06/29/17 06:06 Dose: Not Given Ibuprofen (Motrin Tab) 400 mg PO Q6H PRN PRN Reason: Fever >100.4 F Insulin Human Regular (Humulin R Low) 0 units SC ACHS [facility] PRN Reason: Protocol Last Admin: 06/29/17 07:45 Dose: Not Given Levothyroxine Sodium (Synthroid) 25 mcg PO QAM [facility] Last Admin: 06/28/17 09:41 Dose: 25 mcg Lisinopril (Zestril) 10 mg PO QAM [facility] Metformin HCl (Glucophage) 500 mg PO BIDWM [facility] Last Admin: 06/27/17 17:33 Dose: 500 mg Metoprolol Tartrate (Lopressor) 25 mg PO BID [facility] Ssknm-5-Asoh Ethyl Esters (Lovaza) 1 gm PO DAILY [facility] Last Admin: 06/27/17 11:55 Dose: 1 gm Oxcarbazepine (Trileptal) 150 mg PO QAM [facility] PRN Reason: Protocol Last Admin: 06/27/17 11:55 Dose: 150 mg Pantoprazole Sodium (Protonix Inj) 40 mg IVP DAILY [facility] Last Admin: 06/28/17 09:44 Dose: 40 mg Potassium Chloride (K-Dur 20 Meq Er Tab) 20 meq PO DAILY [facility] Last Admin: 06/28/17 09:41 Dose: 20 meq Tamsulosin HCl (Flomax) 0.4 mg PO DAILY [facility] Last Admin: 06/27/17 11:55 Dose: 0.4 mg - Labs Labs: 06/29/17 06:00 06/29/17 06:00 PT 13.9 SECONDS (9.4-12.5) H 06/29/17 06:00 INR 1.26 (0.93-1.08) H 06/29/17 06:00 APTT 34.0 Seconds (25.1-36.5) 06/28/17 06:45 - Constitutional Appears: No Acute Distress - Head Exam Head Exam: ATRAUMATIC, NORMAL INSPECTION, NORMOCEPHALIC - Eye Exam Eye Exam: EOMI - ENT Exam ENT Exam: Mucous Membranes Moist - Respiratory Exam Respiratory Exam: Clear to Ausculation Bilateral, NORMAL BREATHING PATTERN. absent: Rales, Rhonchi, Wheezes - Cardiovascular Exam Cardiovascular Exam: REGULAR RHYTHM, +S1, +S2 - GI/Abdominal Exam GI & Abdominal Exam: Distended, Soft, Tenderness (RUQ, mid epigastrum, ), Normal Bowel Sounds - Extremities Exam Extremities Exam: absent: Calf Tenderness, Pedal Edema - Neurological Exam Neurological Exam: Alert, Awake, Oriented x3 - Psychiatric Exam Psychiatric exam: Normal Affect, Normal Mood - Skin Skin Exam: Dry, Intact Assessment and Plan - Assessment and Plan (Free Text) Assessment: 71M w/ RUQ pain. Cholecystitis vs choledocolithiasis; GNR bacteremia, s/p Lap chantel POD#1 Plan: - POD #1 from Lap cholecystectomy - Full liquid diet today - Transition from IV to PO pain meds - JUAN Drain output 50mL, continue to monitor - continue IVF/Abx - further recs per Dr. Gomez surgical attending Luke Menendez PGY1
[2017-06-29] MEDS: Potassium Chloride 20 mEq ER Tab PO SCH (10:15)
[2017-06-29] MEDS: Enoxaparin 30 mg Syringe SC SCH (10:15)
[2017-06-29] MEDS: Levothyroxine 25 MCG TAB PO SCH (10:16)
--- NOTE | 2017-06-29 13:55 | PN ---
DATE: 06/29/2017 REASON FOR CONSULTATION AND FOLLOWUP: Preoperative evaluation and postoperative followup, status post cholecystectomy for acute cholecystitis, laparoscopy cholecystectomy, history of coronary artery disease, CABG, and history of atrial fibrillation. SUBJECTIVE: The patient denies any chest pain, shortness of breath, or any palpitation. OBJECTIVE: GENERAL: Not in apparent distress. VITAL SIGNS: As follows: Temperature afebrile, heart rate , and blood pressure 135/69. HEENT: PERRLA intact. NECK: Supple. No carotid bruits or thyromegaly. CHEST: Clear to auscultation. HEART: S1 and S2 regular. ABDOMEN: Soft. EXTREMITIES: Clubbing and cyanosis negative. LABORATORY DATA: WBC 11.1, hemoglobin 11, hematocrit 32.2, and platelet count 175. Chemistry shows sodium 130, potassium 3.8, chloride 107, carbon dioxide 20, anion gap of 14, BUN 25, and creatinine 1.5. IMPRESSION: Gram-negative sepsis, cholecystitis, bandemia, status post cholecystectomy, history of coronary artery disease, history of coronary artery bypass graft, history of atrial fibrillation, history of 3-vessel coronary artery bypass graft and left internal mammary artery to left anterior descending, history of saphenous vein graft to the right posterior descending artery, history of saphenous vein graft to the obtuse marginal 1, status post mitral valve bioprosthetic replacement and tricuspid annuloplasty, history of permanent pacemaker on 09/01/2007. RECOMMENDATIONS: Continue broad spectrum antibiotics. Yesterday, the patient was given 5 mg of vitamin K and FFP. Once the patient started p.o. and safe to start Coumadin, we will restart Coumadin. Once the drainage is out we will follow with you. Interim continue antibiotic and resume baseline medication. We will follow with you. Thank you Dr. Corbin for providing us the opportunity in taking care of the patient, Tk Woodard. John Yo MD
--- NOTE | 2017-06-29 15:41 | CP.PCM.PN ---
Subjective - Date & Time of Evaluation Date of Evaluation: 06/29/17 Time of Evaluation: 14:45 - Subjective Subjective: Infectious Disease Follow Up: June 29, 2017 71 yo male [place] [facility] [place] history of abdominal pain. The patient was found to have fevers up to 101.3 F. Mild leukocytosis with a left shift. Diarrhea episodes for the past two days. Patient with sharp epigastric pains with dizziness, nausea, and lightheadedness. No other symptoms given on admission. CT scan with signs of diverticulosis. Cholelithiasis on Abdominal ultrasound. He states pain is decreased today. Taken to OR yesterday for cholecystectomy. Supportive care. Objective - Vital Signs/Intake and Output Vital Signs (last 24 hours): Temp Pulse Resp BP Pulse Ox 98.2 F 70 18 140/76 95 06/29/17 12:00 06/29/17 12:00 06/29/17 12:00 06/29/17 12:00 06/29/17 06:58 Intake and Output: 06/29/17 06/29/17 06:59 18:59 Intake Total 2405 480 Output Total 950 650 Balance 1455 -170 - Medications Medications: Current Medications Cyanocobalamin (Vitamin B12 100 Mcg Tab) 100 mcg PO BID [facility] Last Admin: 06/29/17 10:16 Dose: 100 mcg Docusate Sodium (Colace) 100 mg PO DAILY [facility] Last Admin: 06/29/17 10:16 Dose: 100 mg Enoxaparin Sodium (Lovenox) 30 mg SC DAILY [facility] PRN Reason: Protocol Last Admin: 06/29/17 10:15 Dose: 30 mg Ergocalciferol (Drisdol 50,000 Intl Units Cap) 1 cap PO Q7D [facility] Last Admin: 06/27/17 13:14 Dose: 1 cap Fenofibrate (Tricor) 145 mg PO DAILY [facility] Last Admin: 06/27/17 11:55 Dose: 145 mg Furosemide (Lasix) 40 mg PO QAM [facility] Last Admin: 06/29/17 10:20 Dose: 40 mg Ceftriaxone Sodium 1 gm/ (Sodium Chloride) 100 mls @ 100 mls/hr IVPB DAILY [facility] Last Admin: 06/29/17 10:17 Dose: 100 mls/hr Metronidazole (Flagyl) 500 mg in 100 mls @ 100 mls/hr IVPB Q8 [facility] PRN Reason: Protocol Last Admin: 06/29/17 15:03 Dose: 100 mls/hr Sodium Chloride (Sodium Chloride 0.9%) 1,000 mls @ 125 mls/hr IV .Q8H [facility] Last Admin: 06/29/17 06:06 Dose: Not Given Ibuprofen (Motrin Tab) 400 mg PO Q6H PRN PRN Reason: Fever >100.4 F Insulin Human Regular (Humulin R Low) 0 units SC ACHS [facility] PRN Reason: Protocol Last Admin: 06/29/17 12:32 Dose: 1 units Levothyroxine Sodium (Synthroid) 25 mcg PO QAM [facility] Last Admin: 06/29/17 10:16 Dose: 25 mcg Lisinopril (Zestril) 10 mg PO QAM [facility] Last Admin: 06/29/17 10:16 Dose: 10 mg Metformin HCl (Glucophage) 500 mg PO BIDWM [facility] Last Admin: 06/27/17 17:33 Dose: 500 mg Metoprolol Tartrate (Lopressor) 25 mg PO BID [facility] Last Admin: 06/29/17 10:15 Dose: 25 mg [id number] Ethyl Esters (Lovaza) 1 gm PO DAILY [facility] Last Admin: 06/27/17 11:55 Dose: 1 gm Oxcarbazepine (Trileptal) 150 [facility] [place] PR[facility] Reason: Protocol Last Admin: 06/27/17 11:55 Dose: 150 mg Oxycodone/Acetaminophen (Percocet 5/325 Mg Tab) 1 tab PO Q6H PRN PRN Reason: Pain, severe (8-10) Stop: 07/02/17 13:00 Oxycodone/Acetaminophen (Percocet 5/325 Mg Tab) 2 tab PO Q4H PRN PRN Reason: Pain, moderate (4-7) Stop: 07/02/17 15:12 Pantoprazole Sodium (Protonix Ec Tab) 40 mg PO ACB [facility] Potassium Chloride (K-Dur 20 Meq Er Tab) 20 meq PO DAILY [facility] Last Admin: 06/29/17 10:15 Dose: 20 meq Tamsulosin HCl (Flomax) 0.4 mg PO DAILY [facility] Last Admin: 06/27/17 11:55 Dose: 0.4 mg Warfarin Sodium (Coumadin) 3 mg PO 1800 [facility] PRN Reason: Protocol - Labs Labs: 06/29/17 06:00 06/29/17 06:00 PT 13.9 SECONDS (9.4-12.5) H 06/29/17 06:00 INR 1.26 (0.93-1.08) H 06/29/17 06:00 APTT 34.0 Seconds (25.1-36.5) 06/28/17 06:45 - Constitutional Appears: Non-toxic, No Acute Distress, Chronically Ill - Head Exam Head Exam: ATRAUMATIC, NORMOCEPHALIC - Eye Exam Eye Exam: EOMI, PERRL Pupil Exam: NORMAL ACCOMODATION, PERRL - ENT Exam ENT Exam: Mucous Membranes Dry, Mucous Membranes Moist, Normal External Ear Exam , TM's Normal Bilaterally - Neck Exam Neck Exam: Full ROM, Normal Inspection - Respiratory Exam Respiratory Exam: Clear to Ausculation Bilateral, NORMAL BREATHING PATTERN. absent: Rales, Rhonchi, Wheezes - Cardiovascular Exam Cardiovascular Exam: REGULAR RHYTHM, RRR, +S1, +S2 - GI/Abdominal Exam GI & Abdominal Exam: Distended, Soft, Normal Bowel Sounds - Extremities Exam Extremities Exam: Full ROM, Normal Inspection - Neurological Exam Neurological Exam: Alert, Awake, CN II-XII Intact, Oriented x3 - Psychiatric Exam Psychiatric exam: Normal Affect, Normal Mood - Skin Skin Exam: Intact, Normal Color Assessment and Plan - Assessment and Plan (Free Text) Assessment: 71 yo male with abdominal pain, diarrhea, and fevers. [place] cultures sent. CT scan showing diverticulosis but no signs of diverticulitis. Fevers up to 101.3 F on admission. Cultures of stool as well as C. Diff sent for evaluation. Monitor WBC trend and fever trend. Started on Rocephin for antibiotic coverage. Added Flagyl to regimen. Seen by GI. Supportive care. Cholelithiasis on abdominal ultrasound. Awaiting HIDA scan. Continue on Rocephin and Flagyl for now. Thank you for allowing me to participate in the care of this patient, we will follow with you.
[2017-06-29] MEDS: Oxycodone/Acetaminophen 5/325 mg Tab PO PRN (17:33)
--- NOTE | 2017-06-29 19:13 | PN ---
DATE: 06/29/2017 PULMONARY PROGRESS NOTE REFERRING PHYSICIAN: Holly Corbin MD SUBJECTIVE: The patient is sitting up in a chair. Night was unremarkable. Feels much better. No cough. No short of breath. Abdominal pain has improved, did have a bowel movement. No leg pain or leg swelling. OBJECTIVE: GENERAL: In no acute distress. VITAL SIGNS: Temperature 98, heart rate 70, respiratory is 18, blood pressure 140/76 and pulse oximetry 95% on room air. HEENT: Moist mucous membrane. Crowded airway. Mallampati score is IV. NECK: Supple. No JVD. LUNGS: Has a fair airflow with rhonchi. HEART: S1 and S2. ABDOMEN: Positive bowel sounds. Surgical site looks okay. EXTREMITIES: There is no edema. NEUROLOGIC: Awake and alert. Follow simple commands. MEDICATIONS: He is on ceftaroline 1 g IV daily, Colace 100 mg daily, vitamin D 50,000 units subq q.7 days, Flagyl 500 mg q.8 hours, Flomax 0.4 mg daily, metformin 500 mg twice a day, insulin coverage, potassium 20 mEq daily, Lasix 40 mg daily, metoprolol tartarate 25 mg twice a day, Lovaza 1 g daily, Lovenox 30 mg subq daily, Motrin 400 mg q.6 hours p.r.n., Percocet 5/325 one tab q.6 hours p.r.n., Protonix 40 mg daily, IV fluid normal saline 125 mL per hour, Synthroid 25 mcg daily, Tricor 145 mg daily, Trileptal 150 mg daily, vitamin B12 100 mcg twice a day and Zestril 10 mg daily. LABORATORY DATA: Shows hemoglobin 11.0, hematocrit 33.2, WBC 11.1 and platelet count is 175. INR 1.26. Sodium 138, potassium 2.8, chloride 107, bicarbonate 20, BUN 25, creatinine 1.5, glucose 111, calcium 8.2 and magnesium 1.7. AST 219, ALT 163, alk phos is 122, albumin is 3.4, TSH is 4.82. Microbiology blood culture has E. coli. IMPRESSION AND PLAN: Cholelithiasis, right lung calcified granuloma, chronic obstructive lung disease, sleep apnea, history of coronary artery disease, history of coronary artery bypass surgery in the remote past, hypertension, hypothyroid, atrial fibrillation, diabetes, morbid obesity, bacteremia, sepsis status post cholecystectomy. Pulmonary point be doing okay. Keep head at 45 degree. Sleep apnea precaution. Continue antibiotics. Gastric prophylaxis. Deep venous thrombosis prophylaxis. Thank you and we will follow with you. John Steele MD
--- NOTE | 2017-06-30 00:13 | PN ---
DATE: 06/29/2017 SUBJECTIVE: This patient was seen and evaluated earlier today. The patient is tolerating the diet, but he is eating only a small amount, status post cholecystectomy yesterday. PHYSICAL EXAMINATION VITAL SIGNS: Temperature 98, blood pressure 139/78, pulse 71, and respirations 20. HEENT: Atraumatic, anicteric. NECK: Supple. HEART: S1 and S2 heard. LUNGS: Bilateral air entry present. ABDOMEN: Soft. There is discomfort at the surgical site, trocar site and right upper quadrant area. LABORATORY DATA: WBC have come down to 11.1, hemoglobin 11, hematocrit 33.2, and platelets 175. The patient's LFT shows total bilirubin has come down to 2.4, AST 219, ALT is 163. IMPRESSION: This is a 71-year-old patient with coronary artery disease, diabetes mellitus, hypertension, now admitted with acute cholecystitis, status post cholecystectomy. CBD normal. The patient's white cell count has improved. Clinically, he appears more comfortable. Follow up LFTs. Continue the antibiotics as per ID. Thank you very much for allowing us to participate in the care of the patient. Stacey Tolentino MD
--- NOTE | 2017-06-30 00:15 | PN ---
DATE: SUBJECTIVE: The patient is a 71-year-old male. The patient was seen and examined on the bedside, sitting on the chair, looking comfortable. Son and [id number] was sitting on the bedside also, still having abdominal pain. He is on a liquid diet. No fever, no chills. No nausea, no vomiting. No headache or dizziness. No swelling of the legs. PHYSICAL EXAMINATION: VITAL SIGNS: Temperature 98, pulse 64, blood pressure 113/70, respiratory rate is 20. HEENT: Head is normocephalic and atraumatic. Eyes: PERRLA. Extraocular muscles intact. Conjunctivae was clear. Nose patent. Mucous membranes moist. NECK: Supple. No carotid bruits, JVD or thyromegaly. CHEST: Bilaterally symmetrical. HEART: S1 and S2 positive. LUNGS: Clear to auscultation. ABDOMEN: Soft. Tender at the surgical site. EXTREMITIES: No edema. No cyanosis. NEUROLOGIC: The patient is awake and alert. Moving all four extremities. No focal deficits. MEDICATIONS: Ceftriaxone, docusate, Coumadin, vitamin D, Flagyl, Flomax, Glucophage, insulin, potassium, Lovenox, Motrin. LABORATORY DATA: White blood cells 11.1, hemoglobin 11.0, hematocrit 33.2, platelets 175,000. Sodium 138, potassium 3.8, BUN 25, creatinine 1.5, glucose 198. ASSESSMENT AND PLAN: Mr. Tk Woodard is a 71-year-old male with increased BUN, uncontrolled diabetes mellitus, hypocalcemia, hyperphosphatemia, abnormal liver function test, status post cholecystectomy and leukocytosis, anemia, proteinuria, ketonuria, history of coronary artery disease, chronic obstructive pulmonary disease, obesity, obstructive sleep apnea syndrome, status post cardiac stenting, right lung calcified granuloma, history of coronary artery bypass surgery in the remote past, hypertension, hypothyroidism, atrial fibrillation. The patient is doing better. He is on liquid diet. Getting deep vein thrombosis and gastrointestinal prophylaxis. We will repeat labs. We will follow up. Advance diet as tolerated. Holly Corbin MD
[2017-06-30] MEDS: Insulin Reg-LOW-Coverage SC SCH ×5 (01:03→21:21)
[2017-06-30] MEDS: Sodium Chloride 0.9% 1,000 ML IV SCH ×2 (01:04→22:03)
[2017-06-30] MEDS: Oxycodone/Acetaminophen 5/325 mg Tab PO PRN ×3 (02:43→22:43)
[2017-06-30] MEDS: metroNIDAZOLE IV 500 mg/100 ml 500 MG/100 ML BAG IVPB SCH ×3 (05:35→21:32)
[2017-06-30 06:49] LABS: BASO # 0.04 K/mm3 (0.0-2.0); BASO % 0.3 % (0.0-3.0); EOS # 0.1 (0.0-0.7); GRAN # 10.07 (1.4-6.5); HEMOGLOBIN 12.3 g/dL (14.0-18.0); LYMPH # 2.3 (1.2-3.4); MEAN CELL VOLUME 90.9 fl (80.0-105.0); MEAN CORPUSCULAR HEMOGLOBIN 31.9 pg (25.0-35.0); MEAN PLATELET VOLUME 11.1 fl (7.0-11.0); MONO # 0.9 (0.1-0.6); MONO % 6.7 % (1.0-6.0); RBC 3.86 10^6/uL (3.5-6.1); RED CELL DISTRIBUTION WIDTH 14.8 % (11.5-14.5); WHITE BLOOD COUNT 13.4 10^3/ul (4.5-11.0)
[2017-06-30 07:06] LABS: ALB/GLOB RATIO 0.9 (1.1-1.8); ALBUMIN 3.5 g/dL (3.0-4.8); ALT/SGPT 150 U/L (7-56); AST/SGOT 143 U/L (17-59); BILIRUBIN,DIRECT 1.5 mg/dL (0.0-0.4); BLOOD UREA NITROGEN 19 mg/dL (7-21); CALCIUM 8.9 mg/dL (8.4-10.5); GFR AFRICAN-AMERICAN > 60; GFR NON-AFRICAN AMERICAN 50; MAGNESIUM 1.7 mg/dL (1.7-2.2)
[2017-06-30 07:19] LABS: INR 1.19 (0.93-1.08); PROTHROMBIN TIME 13.1 SECONDS (9.4-12.5)
--- NOTE | 2017-06-30 08:15 | CP.PCM.PCO ---
Physician Communication Note - Physician Communication Note Physician Communication Note: Kyler:EUS- ERCP for poss CD Stone
--- NOTE | 2017-06-30 09:22 | CP.PCM.PCO ---
Physician Communication Note - Physician Communication Note Physician Communication Note: Holding Lovenox now for poss ERCP
[2017-06-30] MEDS: Potassium Chloride 20 mEq ER Tab PO SCH (10:41)
[2017-06-30] MEDS: Levothyroxine 25 MCG TAB PO SCH (10:42)
[2017-06-30] MEDS: Omega-3-Acid Ethyl Esters 1 GM Cap PO SCH (10:43)
[2017-06-30] MEDS: Pantoprazole 40 mg EC Tab PO SCH (10:46)
--- NOTE | 2017-06-30 10:47 | CP.PCM.PN ---
Subjective - Date & Time of Evaluation Date of Evaluation: 06/30/17 Time of Evaluation: 06:40 - Subjective Subjective: General Surgery note - Dr. Gomez Patient seen and examined at bedside. No acute events reported overnight. Patient indicates discomfort right upper abdominal pain. Pain controlled with oral medications. Patient denies chest pain, shortness of breath, nausea, vomiting, fever, chills, diarrhea. Objective - Vital Signs/Intake and Output Vital Signs (last 24 hours): Temp Pulse Resp BP Pulse Ox 98.4 F 60 20 126/67 97 06/30/17 05:54 06/30/17 05:54 06/30/17 05:54 06/30/17 05:54 06/30/17 05:54 Intake and Output: 06/30/17 06/30/17 06:59 18:59 Intake Total 1440 Output Total 440 Balance 1000 - Medications Medications: Current Medications Cyanocobalamin (Vitamin B12 100 Mcg Tab) 100 mcg PO BID [facility] Last Admin: 06/29/17 17:20 Dose: 100 mcg Docusate Sodium (Colace) 100 mg PO DAILY [facility] Last Admin: 06/29/17 10:16 Dose: 100 mg Enoxaparin Sodium (Lovenox) 30 mg SC DAILY [facility] PRN Reason: Protocol Last Admin: 06/29/17 10:15 Dose: 30 mg Ergocalciferol (Drisdol 50,000 Intl Units Cap) 1 cap PO Q7D [facility] Last Admin: 06/27/17 13:14 Dose: 1 cap Fenofibrate (Tricor) 145 mg PO DAILY [facility] Last Admin: 06/27/17 11:55 Dose: 145 mg Furosemide (Lasix) 40 mg PO QAM [facility] Last Admin: 06/29/17 10:20 Dose: 40 mg Ceftriaxone Sodium 1 gm/ (Sodium Chloride) 100 mls @ 100 mls/hr IVPB DAILY [facility] Last Admin: 06/29/17 10:17 Dose: 100 mls/hr Metronidazole (Flagyl) 500 mg in 100 mls @ 100 mls/hr IVPB Q8 [facility] PRN Reason: Protocol Last Admin: 06/30/17 05:35 Dose: 100 mls/hr Sodium Chloride (Sodium Chloride 0.9%) 1,000 mls @ 125 mls/hr IV .Q8H [facility] Last Admin: 06/30/17 01:04 Dose: 125 mls/hr Ibuprofen (Motrin Tab) 400 mg PO Q6H PRN PRN Reason: Fever >100.4 F Insulin Human Regular (Humulin R Low) 0 units SC [facility] PRN Reason: Protocol Last Admin: 06/30/17 01:03 Dose: Not Given Levothyroxine Sodium (Synthroid) 25 mcg PO QAM [facility] Last Admin: 06/29/17 10:16 Dose: 25 mcg Lisinopril (Zestril) 10 mg PO QAM [facility] Last Admin: 06/29/17 10:16 Dose: 10 mg Metformin HCl (Glucophage) 500 mg PO BIDWM [facility] Last Admin: 06/27/17 17:33 Dose: 500 mg Metoprolol Tartrate (Lopressor) 25 mg PO BID [facility] Last Admin: 06/29/17 17:21 Dose: 25 mg Qloxc-3-Siao Ethyl Esters (Lovaza) 1 gm PO DAILY [facility] Last Admin: 06/27/17 11:55 Dose: 1 gm Oxcarbazepine (Trileptal) 150 mg PO QAM [facility] PRN Reason: Protocol Last Admin: 06/27/17 11:55 Dose: 150 mg Oxycodone/Acetaminophen (Percocet 5/325 Mg Tab) 1 tab PO Q6H [facility]N PRN Reason: Pain, severe (8-10) Stop: 07/02/17 13:00 Last Admin: 06/29/17 17:33 Dose: 1 tab Oxycodone/Acetaminophen (Percocet 5/325 Mg Tab) 2 tab PO Q4H PRN PRN Reason: Pain, moderate (4-7) Stop: 07/02/17 15:12 Last Admin: 06/30/17 02:43 Dose: 2 tab Pantoprazole Sodium (Protonix Ec Tab) 40 mg PO ACB [facility] Potassium Chloride (K-Dur 20 Meq Er Tab) 20 meq PO DAILY [facility] Last Admin: 06/29/17 10:15 Dose: 20 meq Tamsulosin HCl (Flomax) 0.4 mg PO DAILY [facility] Last Admin: 06/27/17 11:55 Dose: 0.4 mg Warfarin Sodium (Coumadin) 3 mg PO 1800 [facility] PRN Reason: Protocol Last Admin: 06/29/17 17:20 Dose: 3 mg - Labs Labs: 06/30/17 06:00 06/30/17 06:00 PT 13.1 SECONDS (9.4-12.5) H 06/30/17 06:00 INR 1.19 (0.93-1.08) H 06/30/17 06:00 APTT 34.0 Seconds (25.1-36.5) 06/28/17 06:45 - Constitutional Appears: Non-toxic, No Acute Distress - Head Exam Head Exam: ATRAUMATIC, NORMAL INSPECTION, NORMOCEPHALIC - Eye Exam Eye Exam: EOMI, PERRL - ENT Exam ENT Exam: Mucous Membranes Moist - Neck Exam Neck Exam: Full ROM - Respiratory Exam Respiratory Exam: Clear to Ausculation Bilateral, NORMAL BREATHING PATTERN - Cardiovascular Exam Cardiovascular Exam: REGULAR RHYTHM, +S1, +S2 - GI/Abdominal Exam GI & Abdominal Exam: Distended, Soft, Tenderness (mild to RUQ), Normal Bowel Sounds. absent: Firm, Guarding, Rigid - Extremities Exam Extremities Exam: absent: Calf Tenderness, Pedal Edema - Neurological Exam Neurological Exam: Alert, Awake, Normal Gait, Oriented x3 - Psychiatric Exam Psychiatric exam: Normal Affect, Normal Mood - Skin Skin Exam: Dry, Normal Color. absent: Rash Assessment and Plan - Assessment and Plan (Free Text) Assessment: 71M w/ RUQ pain. Cholecystitis vs choledocolithiasis; GNR bacteremia, s/p Lap chantel POD#2 Plan: - POD #2 from Lap cholecystectomy - Advance diet as tolerated - PO pain meds - JUAN Drain output 90mL, continue to monitor - continue IVF/Abx - Further recs per Dr. Gomez surgical attending Luke Menendez PGY1
[2017-06-30] MEDS ORDERED: Potassium Chloride 20 mEq/15 ml LIQ UD PO STA (11:34)
--- NOTE | 2017-06-30 15:31 | US ---
HISTORY: persistent RUQ COMPARISON: 06/27/2017 TECHNIQUE: Sonographic evaluation of the abdomen. FINDINGS: LIVER: Measures 26.7 cm. Increased echogenicity of the liver parenchyma. No mass. No intrahepatic bile duct dilatation. GALLBLADDER: Gallbladder removed COMMON BILE DUCT: Measures 6.6 mm. No stones. No dilatation. PANCREAS: Not visualized due to bowel gas RIGHT KIDNEY: Measures 11.9 x 5.0 x 7.1cm. Normal echogenicity. No calculus, mass, or hydronephrosis. LEFT KIDNEY: Measures 11.8 x 5.5 x 6.7cm. Normal echogenicity. No calculus, mass, or hydronephrosis. SPLEEN: Normal in size and contour. No mass. 11.9 x 4.6 x 4.1 AORTA: Not visualize IVC: Unremarkable. OTHER FINDINGS: None. IMPRESSION: Fatty infiltration of the liver.
--- NOTE | 2017-06-30 16:51 | PN ---
DATE: REASON FOR CONSULTATION AND FOLLOWUP: Preop evaluation and postop followup, status post cholecystectomy for acute cholecystitis, laparoscopy cholecystectomy, history of coronary artery disease CABG, history of atrial fibrillation, a stone in common bile duct. SUBJECTIVE: The patient denies any chest pain. Complaining of mild abdominal discomfort in right upper quadrant. He has still drainage in place. OBJECTIVE: GENERAL: Not in apparent distress, but still the patient has drainage in place. Started p.o. diet this morning. He is scheduled for ERCP possibly, anticoagulation on hold. VITAL SIGNS: As follows, temperature afebrile, heart rate 60, and blood pressure 126/62. HEENT: PERRLA. Extraocular muscles intact. NECK: Supple. No carotid bruits or thyromegaly. CHEST: Clear to auscultation. HEART: S1 and S2. Regular. ABDOMEN: Soft. EXTREMITIES: Clubbing and cyanosis negative. LABORATORY DATA: Blood workup as follows, WBC , hemoglobin 12.3, hematocrit 35.1, and platelet count 244. Chemistry shows sodium 142, potassium 3.9, chloride 107, carbon dioxide 23, anion gap of 16, BUN 19, and creatinine 1.4. Total protein 7.4, albumin 3.5, albumin-globulin 0.4, total bilirubin 1.5, AST 143, ALT 150, and alkaline phosphatase 167. IMPRESSION: Elevated liver function tests coming down, acute cholecystitis, bacteremia gram-negative sepsis, history of coronary artery disease, history of coronary artery bypass graft, 3-vessel left internal mammary artery to left anterior descending, saphenous vein graft to the circumflex, saphenous vein graft to the right coronary artery, history of mitral valve repair, history of atrial fibrillation on anticoagulation prior to surgery, history of permanent pacemaker 08/12/2007, status post mitral valve repair bioprosthetic. RECOMMENDATIONS: Repeat blood culture. Continue broad spectrum antibiotic. Anticoagulation is on hold for possibly ERCP tomorrow. Once surgical intervention is completed and no further manipulation planned or done, consider restarting anticoagulation. We will follow with you. Thank you Dr. Gomez for providing us the opportunity in taking care of the patient, Tk Woodard. Last echo on 10/04/2014, showed ejection fraction of 55%. We will supplement electrolytes as needed. We will repeat the blood culture tomorrow to rule out any sepsis post cholecystectomy. Dr. Gomez' note reviewed. Lovenox on hold because of ERCP. As mentioned, once it is done, we will resume back anticoagulation. We will repeat the blood culture as well as CBC and CMP in the morning. John Yo MD
--- NOTE | 2017-06-30 17:46 | CP.PCM.PN ---
Subjective - Date & Time of Evaluation Date of Evaluation: 06/30/17 Time of Evaluation: 17:32 - Subjective Subjective: Infectious Disease Follow Up: June 30, 2017 71 yo male [place] [facility] [place] history of abdominal pain. The patient was found to have fevers up to 101.3 F. Mild leukocytosis with a left shift. Diarrhea episodes for the past two days. Patient with sharp epigastric pains with dizziness, nausea, and lightheadedness. No other symptoms given on admission. CT scan with signs of diverticulosis. Cholelithiasis on Abdominal ultrasound. He states pain is decreased today. Taken to OR for cholecystectomy. Going for ERCP tomorrow. Supportive care. Abdominal Ultrasound done today. Fatty infiltration of the liver seen on ultrasound. Objective - Vital Signs/Intake and Output Vital Signs (last 24 hours): Temp Pulse Resp BP Pulse Ox 98.1 F 60 18 157/81 H 97 06/30/17 13:03 06/30/17 14:00 06/30/17 13:03 06/30/17 13:03 06/30/17 05:54 Intake and Output: 06/30/17 06/30/17 06:59 18:59 Intake Total 1440 Output Total 440 Balance 1000 - Medications Medications: Current Medications Cyanocobalamin (Vitamin B12 100 Mcg Tab) 100 mcg PO BID [facility] [place] Last Admin: 06/30/17 10:42 Dose: 100 mcg Docusate Sodium (Colace) 100 mg PO DAILY [facility] [place] Last Admin: 06/30/17 10:40 Dose: 100 mg Enoxaparin Sodium (Lovenox) 30 mg SC DAILY [facility] [place] PRN Reason: Protocol Last Admin: 06/29/17 10:15 Dose: 30 mg Ergocalciferol (Drisdol 50,000 Intl Units Cap) 1 cap PO Q7D [facility] [place] Last Admin: 06/27/17 13:14 Dose: 1 cap Fenofibrate (Tricor) 145 mg PO DAILY [facility] [place] Last Admin: 06/30/17 10:42 Dose: 145 mg Furosemide (Lasix) 40 mg PO QAM [facility] [place] Last Admin: 06/30/17 10:56 Dose: Not Given Heparin Sodium (Porcine) (Heparin) 5,000 units SC Q8 [facility] [place] PRN Reason: Protocol Stop: 07/01/17 00:01 Ceftriaxone Sodium 1 gm/ (Sodium Chloride) 100 mls @ 100 mls/hr IVPB DAILY [facility] [place] Last Admin: 06/30/17 10:43 Dose: 100 mls/hr Metronidazole (Flagyl) 500 mg in 100 mls @ 100 mls/hr IVPB Q8 [facility] PRN Reason: Protocol Last Admin: 06/30/17 14:16 Dose: 100 mls/hr Sodium Chloride (Sodium Chloride 0.9%) 1,000 mls @ 125 mls/hr IV .Q8H [facility] [place] Last Admin: 06/30/17 01:04 Dose: 125 mls/hr Ibuprofen (Motrin Tab) 400 mg PO Q6H PRN PRN Reason: Fever >100.4 F Insulin Human Regular (Humulin R Low) 0 units SC ACHS [facility] [place] PRN Reason: Protocol Last Admin: 06/30/17 13:54 Dose: Not Given Levothyroxine Sodium (Synthroid) [facility] [place] [facility] [place] Admin: 06/30/17 10:42 Dose: 25 mcg Lisinopril (Zestril) 10 mg PO QAM [facility] [place] Last Admin: 06/30/17 10:42 Dose: 10 mg Metformin HCl (Glucophage) 500 [facility] [place] Admin: 06/30/17 10:41 Dose: 500 mg Metoprolol Tartrate (Lopressor) 25 mg PO BID [facility] [place] Last Admin: 06/30/17 10:46 Dose: 25 mg Cpvob-5-Alwk Ethyl Esters (Lovaza) 1 gm PO DAILY [facility] [place] Last Admin: 06/30/17 10:43 Dose: 1 gm Oxcarbazepine (Trileptal) 150 mg [facility] [place] Reason: Protocol Last Admin: 06/30/17 10:42 Dose: 150 mg Oxycodone/Acetaminophen (Percocet 5/325 Mg Tab) 1 tab PO Q6H PRN PRN Reason: Pain, severe (8-10) Stop: 07/02/17 13:00 Last Admin: 06/30/17 10:46 Dose: 1 tab Oxycodone/Acetaminophen (Percocet 5/325 Mg Tab) 2 tab PO Q4H PRN PRN Reason: Pain, moderate (4-7) Stop: 07/02/17 15:12 Last Admin: 06/30/17 02:43 Dose: 2 tab Pantoprazole Sodium (Protonix Ec Tab) 40 mg PO ACB [facility] [place] Last Admin: 06/30/17 10:46 Dose: 40 mg Potassium Chloride (K-Dur 20 Meq Er Tab) 20 meq PO DAILY [facility] [place] Last Admin: 06/30/17 10:41 Dose: 20 meq Tamsulosin HCl (Flomax) 0.4 mg PO DAILY [facility] [place] Last Admin: 06/30/17 10:40 Dose: 0.4 mg Warfarin Sodium (Coumadin) 3 mg PO 1800 [facility] PRN Reason: Protocol Last Admin: 06/29/17 17:20 Dose: 3 mg - Labs Labs: 06/30/17 06:00 06/30/17 06:00 PT 13.1 SECONDS (9.4-12.5) H 06/30/17 06:00 INR 1.19 (0.93-1.08) H 06/30/17 06:00 APTT 34.0 Seconds (25.1-36.5) 06/28/17 06:45 - Constitutional Appears: Non-toxic, No Acute Distress, Chronically Ill - Head Exam Head Exam: ATRAUMATIC, NORMOCEPHALIC - Eye Exam Eye Exam: EOMI, PERRL Pupil Exam: NORMAL ACCOMODATION, PERRL - ENT Exam ENT Exam: Mucous Membranes Moist, Normal External Ear Exam, TM's Normal Bilaterally - Neck Exam Neck Exam: Full ROM, Normal Inspection - Respiratory Exam Respiratory Exam: Clear to Ausculation Bilateral, NORMAL BREATHING PATTERN. absent: Rales, Rhonchi, Wheezes - Cardiovascular Exam Cardiovascular Exam: REGULAR RHYTHM, RRR, +S1, +S2 - GI/Abdominal Exam GI & Abdominal Exam: Distended, Soft, Normal Bowel Sounds. absent: Tenderness - Extremities Exam Extremities Exam: Full ROM, Normal Inspection - Neurological Exam Neurological Exam: Alert, Awake, CN II-XII Intact, Oriented x3 - Skin Skin Exam: Intact, Normal Color Assessment and Plan - Assessment and Plan (Free Text) Assessment: 71 yo male with abdominal pain, diarrhea, and fevers. [place] cultures sent. CT scan showing diverticulosis but no signs of diverticulitis. Fevers up to 101.3 F on admission. Cultures of stool as well as C. Diff sent for evaluation. Monitor WBC trend and fever trend. Started on Rocephin for antibiotic coverage. Added Flagyl to regimen. Seen by GI. Supportive care. Cholelithiasis on abdominal ultrasound. Cholecystectomy done. Abdominal ultrasound mostly unimpressive. Possible ERCP tomorrow. Continue on Rocephin and Flagyl for now. Thank you for allowing me to participate in the care of this patient, we will follow with you.
--- NOTE | 2017-06-30 22:53 | PN ---
DATE: SUBJECTIVE: The patient is a 71-year-old male. The patient seen and examined at the bedside, sitting on the chair, was made n.p.o. for ultrasound. Pain is getting better. No fever, no chills. No nausea, vomiting or diarrhea. No hematuria or hematochezia, still having drainage with JUAN tube. PHYSICAL EXAMINATION: VITAL SIGNS: Temperature 98.6, heart rate 60, blood pressure 127/62, respiratory rate 15. HEENT: Head is normocephalic and atraumatic. Eyes: PERRLA. Extraocular muscles are intact. Conjunctivae are clear. Nose is patent. NECK: Supple. No carotid bruits or thyromegaly. CHEST: Bilaterally symmetrical. HEART: S1 and S2 positive. LUNGS: Clear to auscultation. ABDOMEN: Soft. Bowel sounds are present. No organomegaly. EXTREMITIES: No edema. No cyanosis. NEUROLOGIC: The patient is awake and alert. Moving all 4 extremities. No focal deficits. MEDICATIONS: Ceftriaxone, Colace, Coumadin is on hold, Flagyl, Flomax, Glucophage, heparin, Lasix, Lopressor, Lovenox is on hold, Percocet, Protonix, TriCor, Zestril. LABORATORY DATA: White blood cell 13.4, hemoglobin 12.3, hematocrit 35.1, platelet 244. Sodium 142, potassium 3.9, BUN 19, creatinine 1.4, glucose 156, phosphorus 2.4. AST 143, ALT 150. ASSESSMENT AND PLAN: Mr. Tk Woodard is a 71-year-old male with leukocytosis, anemia, diabetes mellitus, abnormal liver function test, proteinuria, ketonuria. Hepatitis profile is negative. Seen by the improvement lead, Dr. Yo. Liver function test trending down. Acute cholecystitis, status post cholecystectomy; bacteria gram-negative sepsis; history of coronary artery disease, history of coronary artery bypass graft, 3-vessel left internal mammary artery to left anterior descending saphenous vein graft to the circumflex, saphenous vein graft to the right coronary artery; history of mitral valve repair; history of atrial fibrillation, on anticoagulation; history of permanent pacemaker status post mitral valve repair. We will repeat blood culture, getting antibiotics, endoscopic retrograde cholangiopancreatography tomorrow. Ultrasound done showed fatty liver. I appreciate Dr. Brown's communication report. Gastrointestinal and deep venous thrombosis prophylaxis and repeat labs. Holly Corbin MD MTDCorky
--- NOTE | 2017-07-01 00:31 | PN ---
DATE: 06/30/2017 SUBJECTIVE: This patient was seen and evaluated earlier today. The patient comfortable, tolerating the diet. PHYSICAL EXAMINATION: VITAL SIGNS: Temperature 98.1, pulse 60, blood pressure 157/81. HEENT: Atraumatic, anicteric. NECK: Supple. HEART: S1 and S2 heard. LUNGS: Bilateral air entry present. ABDOMEN: Softly distended. There is a tenderness at the surgical site noticed. EXTREMITIES: Mild edema present. NEUROLOGIC: Alert, oriented. Moves all the extremities. LABORATORY DATA: Hemoglobin is 12.3, hematocrit 35.1, WBC 13.4, platelets of 244. BUN 19, creatinine 1.4. The LFTs shows slightly increase in trend. The patient's LFTs has gone up slightly. His total bilirubin is now 2, direct bilirubin 1.5, AST 143, ALT 150 and alkaline phosphatase of 167. IMPRESSION AND PLAN: This 71-year-old patient with a history of coronary artery disease, diabetes mellitus, hypertension, status post pacemaker, admitted with acute cholecystitis, status post cholecystectomy, common bile duct normal; The patient's LFTs shows slightly upper trend DD include drug induced.. Continue the antibiotics as per ID. The patient is presently on lovenox . We will continue to closely followup with LFTs. The patient is on Flagyl and ceftriaxone. Thank you very much for allowing us to participate in the care the patient. Stacey Tolentino MD MTDD
--- NOTE | 2017-07-01 01:07 | PN ---
DATE: 06/30/2017 PULMONARY PROGRESS NOTE REFERRING PHYSICIAN: Dr. Corbin SUBJECTIVE: Lying in the bed, feels better. No headache. No rhinitis. Short of breath with exertion. No nausea, no vomiting. Mild abdominal pain. Did have bowel movement. No leg pain or leg swelling. PHYSICAL EXAMINATION: GENERAL: In no acute distress. VITAL SIGNS: Temperature is 98, heart rat is 60, respiratory rate is 18, blood pressure is 157/81, pulse ox is 96% on room air. HEENT: Moist mucous membrane. Crowded airway. Mallampati score is IV. NECK: Supple. No JVD. LUNGS: Has a fair airflow with rhonchi. HEART: S1 and S2. ABDOMEN: Distended. Surgical area looks okay. Has a drainage catheter draining serosanguineous fluid. EXTREMITIES: There is no edema. NEUROLOGIC: Awake and alert. Follow simple commands. MEDICATIONS: He is on Rocephin 1 g IV daily, Colace 100 mg twice a day, Coumadin still on hold, vitamin D weekly, Flagyl 500 mg q. 8 hours, Flomax 0.4 mg daily, metformin 500 mg twice a day, heparin 5000 units subcu q. 8 hours, insulin coverage, potassium 20 mEq daily, Lasix 40 mg daily, metoprolol tartarate 25 mg twice a day, Lovaza 1 mg daily, Lovenox 30 mg subcu daily, Motrin 400 mg q. 6 hours p.r.n., Percocet 5/325 one tab q 6 hours p.r.n., Protonix 40 mg daily, IV fluid normal saline 120 mL per hour, Synthroid 25 mcg daily, TriCor 145 mg daily, Trileptal 150 mg daily, vitamin B12 100 twice a day, Zestril 10 mg daily. LABORATORY DATA: Shows hemoglobin 12.3, hematocrit 35.1, WBC 13.4, platelet count 244. INR 1.19. Sodium 142, potassium 3.9, chloride 107, bicarbonate 23, BUN 19, creatinine 1.4, glucose 119, calcium 8.9, phosphorus 2.4, magnesium 1.7, total bilirubin 2.0, direct bilirubin 1.5, AST 143, ALT 150, alk phos is 167, albumin is 3.5. Blood cultures had E. coli. Had abdominal ultrasound done today which shows fatty infiltrate of the liver, otherwise, unremarkable. IMPRESSION AND PLAN: Cholelithiasis, right lung calcified granuloma, chronic obstructive lung disease, sleep apnea syndrome, coronary artery disease, history of coronary artery bypass surgery in the remote past, hypertension, hypothyroid, atrial fibrillation, diabetes, morbid obesity, bacteremia, sepsis, status post cholecystectomy, being followed by Surgery and Gastrointestinal, being scheduled for ERCP. Continue bronchodilator. Keep head at 45 degree. Pain management. Gastric prophylaxis. Sequential compression device to lower extremity. Followup labs in the morning. Thank you and we will follow with you. John Steele MD
[2017-07-01] MEDS: metroNIDAZOLE IV 500 mg/100 ml 500 MG/100 ML BAG IVPB SCH ×3 (05:28→21:28)
[2017-07-01] MEDS: Sodium Chloride 0.9% 1,000 ML IV SCH (05:42)
[2017-07-01 06:48] LABS: BASO # 0.05 K/mm3 (0.0-2.0); BASO % 0.6 % (0.0-3.0); EOS # 0.3 (0.0-0.7); GRAN # 6.55 (1.4-6.5); GRAN % 73.5 % (50.0-68.0); HEMOGLOBIN 10.7 g/dL (14.0-18.0); LYMPH # 1.2 (1.2-3.4); LYMPH % 13.4 % (22.0-35.0); MEAN CORPUSCULAR HEMOGLOBIN 30.5 pg (25.0-35.0); MEAN CORPUSCULAR HGB CONC 33.1 g/dl (31.0-37.0); MEAN PLATELET VOLUME 10.4 fl (7.0-11.0); MONO # 0.9 (0.1-0.6); MONO % 9.5 % (1.0-6.0); RBC 3.51 10^6/uL (3.5-6.1); RED CELL DISTRIBUTION WIDTH 14.9 % (11.5-14.5); WHITE BLOOD COUNT 8.9 10^3/ul (4.5-11.0)
[2017-07-01 07:30] LABS: ALB/GLOB RATIO 0.9 (1.1-1.8); ALT/SGPT 100 U/L (7-56); AST/SGOT 75 U/L (17-59); BLOOD UREA NITROGEN 15 mg/dL (7-21); CALCIUM 8.7 mg/dL (8.4-10.5); GFR AFRICAN-AMERICAN > 60; GFR NON-AFRICAN AMERICAN > 60; MAGNESIUM 1.5 mg/dL (1.7-2.2)
--- NOTE | 2017-07-01 08:10 | CP.PCM.PN ---
Subjective - Date & Time of Evaluation Date of Evaluation: 07/01/17 Time of Evaluation: 07:00 - Subjective Subjective: Angeles Menendez PGY1 - GENERAL SURGERY NOTE - DR. BEST Patient seen and examined this AM. No acute events reported overnight. Patient indicates continued right sided abdominal pain. Patient is NPO for ERCP today with GI. Patient denies headache, chest pain, shortness of breath, diarrhea, constipation, nausea, vomiting, fever, chills. Objective - Vital Signs/Intake and Output Vital Signs (last 24 hours): Temp Pulse Resp BP Pulse Ox 97.6 F 60 18 137/66 96 07/01/17 07:30 07/01/17 07:30 07/01/17 07:30 07/01/17 07:30 07/01/17 07:30 Intake and Output: 07/01/17 07/01/17 06:59 18:59 Intake Total 0 Output Total 230 Balance -230 - Medications Medications: Current Medications Cyanocobalamin (Vitamin B12 100 Mcg Tab) 100 mcg PO BID [facility] Last Admin: 06/30/17 18:10 Dose: 100 mcg Docusate Sodium (Colace) 100 mg PO DAILY [facility] Last Admin: 06/30/17 10:40 Dose: 100 mg Enoxaparin Sodium (Lovenox) 30 mg SC DAILY [facility] PRN Reason: Protocol Last Admin: 06/29/17 10:15 Dose: 30 mg Ergocalciferol (Drisdol 50,000 Intl Units Cap) 1 cap PO Q7D [facility] Last Admin: 06/27/17 13:14 Dose: 1 cap Fenofibrate (Tricor) 145 mg PO DAILY [facility] Last Admin: 06/30/17 10:42 Dose: 145 mg Furosemide (Lasix) 40 mg PO QAM [facility] Last Admin: 06/30/17 10:56 Dose: Not Given Ceftriaxone Sodium 1 gm/ (Sodium Chloride) 100 mls @ 100 mls/hr IVPB DAILY [facility] Last Admin: 06/30/17 10:43 Dose: 100 mls/hr Metronidazole (Flagyl) 500 mg in 100 mls @ 100 mls/hr IVPB Q8 [facility] PRN Reason: Protocol Last Admin: 07/01/17 05:28 Dose: 100 mls/hr Sodium Chloride (Sodium Chloride 0.9%) 1,000 mls @ 125 mls/hr IV .Q8H [facility] Last Admin: 07/01/17 05:42 Dose: 125 mls/hr Ibuprofen (Motrin Tab) 400 mg PO Q6H PRN PRN Reason: Fever >100.4 F Insulin Human Regular (Humulin R Low) 0 units SC ACHS [facility] PRN Reason: Protocol Last Admin: 06/30/17 21:21 Dose: Not Given Levothyroxine Sodium (Synthroid) 25 mcg PO QAM [facility] Last Admin: 06/30/17 10:42 Dose: 25 mcg Lisinopril (Zestril) 10 mg PO QAM [facility] Last Admin: 06/30/17 10:42 Dose: 10 mg Metformin HCl (Glucophage) 500 mg PO BIDWM [facility] Last Admin: 06/30/17 18:08 Dose: 500 mg Metoprolol Tartrate (Lopressor) 25 mg PO BID [facility] Last Admin: 06/30/17 18:09 Dose: 25 mg Pursg-2-Iskd Ethyl Esters (Lovaza) 1 gm PO DAILY [facility] Last Admin: 06/30/17 10:43 Dose: 1 gm Oxcarbazepine (Trileptal) [facility] [place] Reason: Protocol Last Admin: 06/30/17 10:42 Dose: 150 mg Oxycodone/Acetaminophen (Percocet 5/325 Mg Tab) 1 tab PO Q6H PRN PRN Reason: Pain, severe (8-10) Stop: 07/02/17 13:00 Last Admin: 06/30/17 22:43 Dose: 1 tab Oxycodone/Acetaminophen (Percocet 5/325 Mg Tab) 2 tab PO Q4H PRN PRN Reason: Pain, moderate (4-7) Stop: 07/02/17 15:12 Last Admin: 06/30/17 02:43 Dose: 2 tab Pantoprazole Sodium (Protonix Ec Tab) 40 mg PO ACB [facility] Last Admin: 06/30/17 10:46 Dose: 40 mg Potassium Chloride (K-Dur 20 Meq Er Tab) 20 meq PO DAILY [facility] Last Admin: 06/30/17 10:41 Dose: 20 meq Tamsulosin HCl (Flomax) 0.4 mg PO DAILY [facility] Last Admin: 06/30/17 10:40 Dose: 0.4 mg Warfarin Sodium (Coumadin) 3 mg PO 1800 [facility] PRN Reason: Protocol Last Admin: 06/29/17 17:20 Dose: 3 mg - Labs Labs: 07/01/17 06:30 07/01/17 06:30 PT 13.1 SECONDS (9.4-12.5) H 06/30/17 06:00 INR 1.19 (0.93-1.08) H 06/30/17 06:00 APTT 28.2 Seconds (25.1-36.5) 07/01/17 06:30 - Constitutional Appears: Non-toxic - Head Exam Head Exam: ATRAUMATIC, NORMAL INSPECTION, NORMOCEPHALIC - Eye Exam Eye Exam: EOMI, PERRL - ENT Exam ENT Exam: Mucous Membranes Moist - Respiratory Exam Respiratory Exam: Clear to Ausculation Bilateral, NORMAL BREATHING PATTERN - Cardiovascular Exam Cardiovascular Exam: REGULAR RHYTHM, +S1, +S2 - GI/Abdominal Exam GI & Abdominal Exam: Distended, Soft, Tenderness (right sided abdominal pain RUQ >RLQ), Normal Bowel Sounds. absent: Firm - Extremities Exam Extremities Exam: Normal Capillary Refill. absent: Calf Tenderness - Neurological Exam Neurological Exam: Alert, Awake, Oriented x3 - Psychiatric Exam Psychiatric exam: Normal Affect, Normal Mood - Skin Skin Exam: Dry, Intact, Normal Color Assessment and Plan - Assessment and Plan (Free Text) Assessment: 71M w/ RUQ pain. Cholecystitis vs choledocolithiasis; GNR bacteremia, s/p Lap chantel POD#3 Plan: - POD#3 from Lap Cholecystectomy - Peristent RUQ pain, alk phos elevated, trending downward - Abd US 06/30: CBD dilatation of 6.6mm - ERCP for today with GI, f/u results - Continue IVF/Abx, PO pain meds - DW Dr. Jason Menendez PGY1
[2017-07-01] MEDS: Pantoprazole 40 mg EC Tab PO SCH (08:21)
[2017-07-01] MEDS: Omega-3-Acid Ethyl Esters 1 GM Cap PO SCH (10:12)
[2017-07-01] MEDS: Levothyroxine 25 MCG TAB PO SCH (10:13)
[2017-07-01] MEDS: Insulin Reg-LOW-Coverage SC SCH ×2 (10:14→21:10)
[2017-07-01] MEDS: Potassium Chloride 20 mEq ER Tab PO SCH (10:14)
[2017-07-01] MEDS: Enoxaparin 30 mg Syringe SC SCH (10:15)
[2017-07-01] MEDS ORDERED: Magnesium Sulfate 2 GM in Sodium Chloride 0.9% 100 ML IVPB ONE (12:57)
--- NOTE | 2017-07-01 14:27 | PN ---
DATE: 07/01/2017 LOCATION: The patient is in room 566, bed 1. REASON FOR CONSULTATION AND FOLLOWUP: Preop evaluation for cholecystectomy for acute cholecystitis, laparoscopy cholecystectomy, history of coronary artery disease CABG, history of atrial fibrillation, a stone in common bile duct. SUBJECTIVE: The patient denies any chest pain, shortness of breath or palpitation. He is still complaining abdominal discomfort in the right upper quadrant. He is sitting in a chair at present without any cardiac symptoms. PHYSICAL EXAMINATION: VITAL SIGNS: Blood pressure 137/66, respirations 18, pulse 60, and temperature 97.6. HEENT: Head is normocephalic. Eyes: Pupils are normal. Conjunctivae slightly pale. NECK: JVP low. Carotid equal. THORAX: AP diameter normal. LUNGS: Clear. CARDIOVASCULAR: S1 and S2. ABDOMEN: As mentioned about cholecystectomy. EXTREMITIES: No clubbing. No cyanosis. LABORATORY DATA: WBC 8.9, hemoglobin 10.7, hematocrit 32.3, and platelets 249. Sodium 142, potassium 4.3, BUN 15, creatinine 1.2, sugar 82, calcium 8.7, phosphorus 2.6, magnesium 1.5, AST 75, ALT 100, and alkaline phosphatase 135. Total protein 6.2 and albumin 3.0. DIAGNOSES: Coronary artery disease coronary artery bypass graft, acute cholecystitis, gram-negative sepsis, history of mitral valve repair along with coronary artery bypass graft, history of atrial fibrillation, history of permanent pacemaker on 08/12/2007, status post mitral valve repair, bioprosthetic valve. Echo on 10/04/2014 showed ejection fraction of 55%. PLAN: We will give magnesium therapy. Today's PT/INR pending. The patient is on IV metronidazole, warfarin 5 mg p.o. daily, metformin 500 mg p.o. b.i.d., furosemide 40 daily, metoprolol tartrate 25 b.i.d., Lovenox 30 mg subcutaneous daily, Rocephin 1 g IV daily, Synthroid 25 mcg p.o. daily, and lisinopril 10 mg daily. We will give mag sulfate and repeat labs in the morning. Repeat blood cultures ordered for today. We will follow with you. Mohammad Apodaca, MD
--- NOTE | 2017-07-01 17:05 | CP.PCM.PN ---
Subjective - Date & Time of Evaluation Date of Evaluation: 07/01/17 Time of Evaluation: 16:30 - Subjective Subjective: Infectious Disease Follow Up: July 01, 2017 71 yo [place] [facility] [place] history of abdominal pain. The patient was found to have fevers up to 101.3 F. Mild leukocytosis with a left shift. Diarrhea episodes for the past two days. Patient with sharp epigastric pains with dizziness, nausea, and lightheadedness. No other symptoms given on admission. CT scan with signs of diverticulosis. Cholelithiasis on Abdominal ultrasound. He states pain is decreased today. Taken to OR for cholecystectomy. Notes in chart signalling that patient is going for an ERCP soon. Supportive care. Abdominal Ultrasound done. Fatty infiltration of the liver seen on ultrasound. Patient still complaining of right sided abdominal pain. Objective - Vital Signs/Intake and Output Vital Signs (last 24 hours): Temp Pulse Resp BP Pulse Ox 97.6 F 61 18 167/79 H 96 07/01/17 07:30 07/01/17 10:13 07/01/17 07:30 07/01/17 10:13 07/01/17 07:30 Intake and Output: 07/01/17 07/01/17 06:59 18:59 Intake Total 0 780 Output Total 230 Balance -230 780 - Medications Medications: Current Medications Cyanocobalamin (Vitamin B12 100 Mcg Tab) 100 mcg PO BID [facility] Last Admin: 07/01/17 10:13 Dose: 100 mcg Docusate Sodium (Colace) 100 mg PO DAILY [facility] Last Admin: 07/01/17 10:14 Dose: 100 mg Enoxaparin Sodium (Lovenox) 30 mg SC DAILY [facility] PRN Reason: Protocol Last Admin: 07/01/17 10:15 Dose: Not Given Ergocalciferol (Drisdol 50,000 Intl Units Cap) 1 cap PO Q7D [facility] Last Admin: 06/27/17 13:14 Dose: 1 cap Fenofibrate (Tricor) 145 mg PO DAILY [facility] Last Admin: 07/01/17 10:12 Dose: 145 mg Furosemide (Lasix) 40 mg PO QAM [facility] Last Admin: 07/01/17 10:13 Dose: 40 mg Ceftriaxone Sodium 1 gm/ (Sodium Chloride) 100 mls @ 100 mls/hr IVPB DAILY [facility] Last Admin: 12/29/17 10:16 Dose: 100 mls/hr Metronidazole (Flagyl) 500 mg in 100 mls @ 100 mls/hr IVPB Q8 [facility] PRN Reason: Protocol Last Admin: 07/01/17 14:31 Dose: 100 mls/hr Ibuprofen (Motrin Tab) 400 mg PO Q6H PRN PRN Reason: Fever >100.4 F Insulin Human Regular (Humulin R Low) 0 units SC ACHS [facility] PRN Reason: Protocol Last Admin: 07/01/17 10:14 Dose: Not Given Levothyroxine Sodium (Synthroid) 25 mcg PO QAM [facility] Last Admin: 07/01/17 10:13 Dose: 25 mcg Lisinopril (Zestril) 10 mg PO QAM [facility] Last Admin: 07/01/17 10:13 Dose: 10 mg Metformin HCl (Glucophage) 500 mg PO BIDWM [facility] Last Admin: 07/01/17 08:21 Dose: 500 mg Metoprolol Tartrate (Lopressor) 25 mg PO BID [facility] Last Admin: 07/01/17 10:12 Dose: 25 mg Nxogl-4-Skmr Ethyl Esters (Lovaza) 1 gm PO DAILY [facility] Last Admin: 07/01/17 10:12 Dose: 1 gm Oxcarbazepine (Trileptal) 150 mg PO QAM [facility] PRN Reason: Protocol Last Admin: 07/01/17 10:12 Dose: 150 mg Oxycodone/Acetaminophen (Percocet 5/325 Mg Tab) 1 tab PO Q6H PRN PRN Reason: Pain, severe (8-10) Stop: 07/02/17 13:00 Last Admin: 06/30/17 22:43 Dose: 1 tab Oxycodone/Acetaminophen (Percocet 5/325 Mg Tab) 2 tab PO Q4H PRN PRN Reason: Pain, moderate (4-7) Stop: 07/02/17 15:12 Last Admin: 06/30/17 02:43 Dose: 2 tab Pantoprazole Sodium (Protonix Ec Tab) 40 mg PO ACB [facility] Last Admin: 07/01/17 08:21 Dose: 40 mg Potassium Chloride (K-Dur 20 Meq Er Tab) 20 meq PO DAILY [facility] Last Admin: 07/01/17 10:14 Dose: 20 meq Tamsulosin HCl (Flomax) 0.4 mg PO DAILY [facility] Last Admin: 07/01/17 10:12 Dose: 0.4 mg Warfarin Sodium (Coumadin) 5 mg PO 1800 [facility] PRN Reason: Protocol - Labs Labs: 07/01/17 06:30 07/01/17 06:30 PT 13.1 SECONDS (9.4-12.5) H 06/30/17 06:00 INR 1.19 (0.93-1.08) H 06/30/17 06:00 APTT 28.2 Seconds (25.1-36.5) 07/01/17 06:30 - Constitutional Appears: Non-toxic, Chronically Ill - Head Exam Head Exam: ATRAUMATIC, NORMOCEPHALIC - Eye Exam Eye Exam: EOMI, PERRL Pupil Exam: NORMAL ACCOMODATION, PERRL - ENT Exam ENT Exam: Mucous Membranes Moist, Normal External Ear Exam, TM's Normal Bilaterally - Neck Exam Neck Exam: Full ROM, Normal Inspection - Respiratory Exam Respiratory Exam: Clear to Ausculation Bilateral, NORMAL BREATHING PATTERN. absent: Rales, Rhonchi, Wheezes - Cardiovascular Exam Cardiovascular Exam: REGULAR RHYTHM, RRR, +S1, +S2 - GI/Abdominal Exam GI & Abdominal Exam: Soft, Normal Bowel Sounds. absent: Distended, Tenderness - Extremities Exam Extremities Exam: Full ROM, Normal Inspection - Neurological Exam Neurological Exam: Alert, Awake, CN II-XII Intact, Oriented x3 - Psychiatric Exam Psychiatric exam: Normal Affect, Normal Mood - Skin Skin Exam: Intact, Normal Color Assessment and Plan - Assessment and Plan (Free Text) Assessment: 71 yo male with abdominal pain, diarrhea, and fevers. [place] cultures sent. CT scan showing diverticulosis but no signs of diverticulitis. Fevers up to 101.3 F on admission. Cultures of stool as well as C. Diff sent for evaluation. Monitor WBC trend and fever trend. Started on Rocephin for antibiotic coverage. Added Flagyl to regimen. Seen by GI. Supportive care. Cholelithiasis on abdominal ultrasound. Cholecystectomy done. Abdominal ultrasound mostly unimpressive. Possible ERCP? Continue on Rocephin and Flagyl for now. Still complaining of abdominal pains. Supportive care. Thank you for allowing me to participate in the care of this patient, we will follow with you.
--- NOTE | 2017-07-01 20:01 | PN ---
DATE: 07/01/2017 SUBJECTIVE: This patient was seen and evaluated today. The patient is tolerating the diet. PHYSICAL EXAMINATION: VITAL SIGNS: Temperature is 99, pulse 83, and blood pressure is 162/84. HEENT: Atraumatic and anicteric. NECK: Supple. HEART: S1 and S2 heard. LUNGS: Bilateral air entry present. ABDOMEN: Soft. Mild tenderness over the surgical incision site. EXTREMITIES: Mild edema present. NEUROLOGIC: Alert, oriented, and moves all the extremities. LABORATORY DATA: Hemoglobin 10.7, hematocrit 39.3, WBC 8.9, and platelets of 249. BUN 15 and creatinine 1.2. LFTs shows downward trend and bilirubin has come down to 1.2. AST is 75, ALT is 100, and alkaline phosphatase is 135. IMPRESSION AND PLAN: This is a 71-year-old patient with status post cholecystectomy for acute cholecystitis. Liver function tests are showing a downward trend on antibiotics, ceftriaxone and Flagyl. The patient's other comorbidities include coronary artery disease, atrial fibrillation, obstructive sleep apnea, and chronic obstructive pulmonary disease. We would recommend followup of the liver function tests. Overall, the liver function tests show the downward trend. No need for any GI workup at the present time. No plan for ERCP now. I have discussed Dr. Gomez earlier today. Thank you very much for allowing us to participate in the care of the patient. Stacey Tolentino MD MTDD
--- NOTE | 2017-07-01 21:34 | CP.PCM.PN ---
<Holly Corbin - Last Filed: 07/02/17 16:38> Subjective - Subjective Subjective: pt is seen and examined at bed side , looking comfortable pain is getting better , surgery and gi on the case . no more sob or chest pain Objective - Vital Signs/Intake and Output Vital Signs (last 24 hours): Temp Pulse Resp BP Pulse Ox 97.8 F 60 18 177/66 H 98 07/02/17 08:19 07/02/17 09:05 07/02/17 08:19 07/02/17 09:05 07/02/17 08:19 Intake and Output: 07/02/17 07/02/17 06:59 18:59 Intake Total 520 540 Balance 520 540 - Medications Medications: Current Medications Cyanocobalamin (Vitamin B12 100 Mcg Tab) 100 mcg PO BID [facility] Last Admin: 07/02/17 09:07 Dose: 100 mcg Docusate Sodium (Colace) 100 mg PO DAILY [facility] Last Admin: 07/02/17 09:07 Dose: 100 mg Enoxaparin Sodium (Lovenox) 40 mg SC DAILY [facility] PRN Reason: Protocol Ergocalciferol (Drisdol 50,000 Intl Units Cap) 1 cap PO Q7D [facility] Last Admin: 06/27/17 13:14 Dose: 1 cap Fenofibrate (Tricor) 145 mg PO DAILY [facility] Last Admin: 07/02/17 09:07 Dose: 145 mg Furosemide (Lasix) 40 mg PO QAM [facility] Last Admin: 07/02/17 09:08 Dose: Not Given Ceftriaxone Sodium 1 gm/ (Sodium Chloride) 100 mls @ 100 mls/hr IVPB DAILY [facility] Last Admin: 07/02/17 09:03 Dose: 100 mls/hr Metronidazole (Flagyl) 500 mg in 100 mls @ 100 mls/hr IVPB Q8 [facility] PRN Reason: Protocol Last Admin: 07/02/17 14:31 Dose: 100 mls/hr Magnesium Sulfate/Dextrose (Magnesium Sulfate 1 Gm/100 Ml D5w) 1 gm in 100 mls @ 100 mls/hr IVPB ONCE ONE Stop: 07/02/17 16:57 Last Admin: 07/02/17 16:35 Dose: 100 mls/hr Ibuprofen (Motrin Tab) 400 mg PO Q6H PRN PRN Reason: Fever >100.4 F Insulin Human Regular (Humulin R Low) 0 units SC ACHS [facility] PRN Reason: Protocol Last Admin: 07/02/17 11:51 Dose: Not Given Levothyroxine Sodium (Synthroid) 25 mcg PO QAM [facility] Last Admin: 07/02/17 09:07 Dose: 25 mcg Lisinopril (Zestril) 10 mg PO QAM [facility] Last Admin: 07/02/17 09:05 Dose: 10 mg Metformin HCl (Glucophage) 500 mg PO BIDWM [facility] Last Admin: 07/02/17 08:58 Dose: 500 mg Metoprolol Tartrate (Lopressor) 25 mg PO BID [facility] Last Admin: 07/02/17 09:05 Dose: 25 mg Okjqk-8-Txlk Ethyl Esters (Lovaza) 1 gm PO DAILY [facility] Last Admin: 07/02/17 09:06 Dose: 1 gm Oxcarbazepine (Trileptal) 150 mg PO QAM [facility] PRN Reason: Protocol Last Admin: 07/02/17 09:06 Dose: 150 mg Pantoprazole Sodium (Protonix Ec Tab) 40 mg PO ACB [facility] Last Admin: 07/02/17 06:35 Dose: 40 mg Potassium Chloride (K-Dur 20 Meq Er Tab) 20 meq PO DAILY [facility] Last Admin: 07/02/17 09:07 Dose: 20 meq Tamsulosin HCl (Flomax) 0.4 mg PO DAILY [facility] Last Admin: 07/02/17 09:05 Dose: 0.4 mg Warfarin Sodium (Coumadin) 10 mg PO 1800 [facility] PRN Reason: Protocol - Labs Labs: 07/02/17 07:45 07/02/17 07:05 PT 13.8 SECONDS (9.4-12.5) H 07/02/17 07:05 INR 1.25 (0.93-1.08) H 07/02/17 07:05 APTT 28.2 Seconds (25.1-36.5) 07/01/17 06:30 Assessment and Plan - Assessment and Plan (Free Text) Assessment: 71 ys old male with many problems , came with abdominal pain , vnd , had cholecyctectmy now getting better , had at, fib, is on comedine , will cont. same treatment <Susana Canela - Last Filed: 07/03/17 12:05> Subjective - Date & Time of Evaluation Date of Evaluation: 07/01/17 Time of Evaluation: 18:30 - Subjective Subjective: 71 yr male w/ history of Afib, CABG w/ mitral valve replacement 2012, pacemaker w. battery change 2010, HTN, hypercholesterolemia, DM II, stroke, COPD , sleep apnea, R hand ORIF, and hypothyroidism. s/p laprascopic chantel. Family members at bedside. Pt appears comfortable and wishes to be discharged home. He understands that his electrolytes require closer monitoring. Denies any headaches, SOB, N/V, fevers, constipation, or diarrhea. Objective - Vital Signs/Intake and Output Vital Signs (last 24 hours): Temp Pulse Resp BP Pulse Ox 99 F 83 18 162/84 H 98 07/01/17 16:34 07/01/17 16:34 07/01/17 16:34 07/01/17 16:34 07/01/17 16:34 Intake and Output: 07/01/17 07/02/17 18:59 06:59 Intake Total 780 Balance 780 - Medications Medications: Current Medications Cyanocobalamin (Vitamin B12 100 Mcg Tab) 100 mcg PO BID [facility] Last Admin: 07/01/17 17:47 Dose: 100 mcg Docusate Sodium (Colace) 100 mg PO DAILY [facility] Last Admin: 07/01/17 10:14 Dose: 100 mg Enoxaparin Sodium (Lovenox) 30 mg SC DAILY [facility] PRN Reason: Protocol Last Admin: 07/01/17 10:15 Dose: Not Given Ergocalciferol (Drisdol 50,000 Intl Units Cap) 1 cap PO Q7D [facility] Last Admin: 06/27/17 13:14 Dose: 1 cap Fenofibrate (Tricor) 145 mg PO DAILY [facility] Last Admin: 07/01/17 10:12 Dose: 145 mg Furosemide (Lasix) 40 mg PO QAM [facility] Last Admin: 07/01/17 10:13 Dose: 40 mg Ceftriaxone Sodium 1 gm/ (Sodium Chloride) 100 mls @ 100 mls/hr IVPB DAILY [facility] Last Admin: 07/01/17 10:16 Dose: 100 mls/hr Metronidazole (Flagyl) 500 mg in 100 mls @ 100 mls/hr IVPB Q8 [facility] PRN Reason: Protocol Last Admin: 07/01/17 21:28 Dose: 100 mls/hr Ibuprofen (Motrin Tab) 400 mg PO Q6H PRN PRN Reason: Fever >100.4 F Insulin Human Regular (Humulin R Low) 0 units SC ACHS [facility] PRN Reason: Protocol Last Admin: 07/01/17 10:14 Dose: Not Given Levothyroxine Sodium (Synthroid) 25 mcg PO QAM [facility] Last Admin: 07/01/17 10:13 Dose: 25 mcg Lisinopril (Zestril) 10 mg PO QAM [facility] Last Admin: 07/01/17 10:13 Dose: 10 mg Metformin HCl (Glucophage) 500 mg PO BIDWM [facility] Last Admin: 07/01/17 17:47 Dose: 500 mg Metoprolol Tartrate (Lopressor) 25 mg PO BID [facility] Last Admin: 07/01/17 17:47 Dose: 25 mg Ytors-2-Iwws Ethyl Esters (Lovaza) 1 gm PO DAILY [facility] Last Admin: 07/01/17 10:12 Dose: 1 gm [facility]carbazepine ([facility]leptal) [facility] [place] Reason: Protocol Last Admin: 07/01/17 10:12 Dose: 150 mg Oxycodone/Acetaminophen (Percocet 5/325 Mg Tab) 1 tab PO Q6H PRN PRN Reason: Pain, severe (8-10) Stop: 07/02/17 13:00 Last Admin: 06/30/17 22:43 Dose: 1 tab Oxycodone/Acetaminophen (Percocet 5/325 Mg Tab) 2 tab PO Q4H PRN PRN Reason: Pain, moderate (4-7) Stop: 07/02/17 15:12 Last Admin: 06/30/17 02:43 Dose: 2 tab Pantoprazole Sodium (Protonix Ec Tab) 40 mg PO ACB [facility] Last Admin: 07/01/17 08:21 Dose: 40 mg Potassium Chloride (K-Dur 20 Meq Er Tab) 20 meq PO DAILY [facility] Last Admin: 07/01/17 10:14 Dose: 20 meq Tamsulosin HCl (Flomax) 0.4 mg PO DAILY [facility] Last Admin: 07/01/17 10:12 Dose: 0.4 mg Warfarin Sodium (Coumadin) 5 mg PO 1800 [facility] PRN Reason: Protocol Last Admin: 07/01/17 17:47 Dose: 5 mg - Labs Labs: 07/01/17 06:30 12/29/17 06:30 PT 13.1 SECONDS (9.4-12.5) H 06/30/17 06:00 INR 1.19 (0.93-1.08) H 06/30/17 06:00 APTT 28.2 Seconds (25.1-36.5) 07/01/17 06:30 - Constitutional Appears: Well, No Acute Distress - Head Exam Head Exam: ATRAUMATIC, NORMAL INSPECTION, NORMOCEPHALIC - Eye Exam Eye Exam: EOMI, Normal appearance, PERRL - ENT Exam ENT Exam: Mucous Membranes Moist, Normal Exam - Neck Exam Neck Exam: Full ROM, Normal Inspection. absent: Lymphadenopathy - Respiratory Exam Respiratory Exam: Clear to Ausculation Bilateral, NORMAL BREATHING PATTERN - Cardiovascular Exam Cardiovascular Exam: REGULAR RHYTHM, +S1, +S2. absent: Murmur - GI/Abdominal Exam GI & Abdominal Exam: Soft, Normal Bowel Sounds Additional comments: obese, Laprascopic sites C/D/I - Extremities Exam Extremities Exam: Full ROM, Normal Capillary Refill, Normal Inspection. absent : Joint Swelling, Pedal Edema - Back Exam Back Exam: NORMAL INSPECTION - Neurological Exam Neurological Exam: Alert, Awake, CN II-XII Intact, Normal Gait, Oriented x3 - Psychiatric Exam Psychiatric exam: Normal Affect, Normal Mood - Skin Skin Exam: Dry, Intact, Normal Color, Warm Assessment and Plan (1) Hypomagnesemia Status: Acute (2) Cholecystitis Status: Acute (3) Anemia Status: Acute (4) Bilirubinemia Status: Acute (5) Prediabetes Status: Acute (6) Hypertriglyceridemia Status: Acute (7) Elevated LFTs Status: Acute (8) Sepsis Status: Acute - Assessment and Plan (Free Text) Plan: IV Rocephin & flagyl. warfarin 5 mg, Mag sulfate . Monitor labs. Consults: Cardio - Dr. Dahl = magnesium therapy, EF 52%, GI - Dr. Tolentino = LFT trending down w/ IV ABX, no plans for ERCP. Pulmonary - = RLL calcified granuloma of lung. sleep apnea precautions. avoid sedation. I.D. - Dr. Tamayo = rocehpin & Flagyl. monitor WBC trend. Surgery - Dr. Gilberto Gomez = CBD dilatation, persistent RUQ, alk phos elevated, tending down, contiue IVF/ABX Reviewed: [facility] = Gallbladder cholecystectomy, gangreous cholecystitis, cholelithiasis. US abd = fattly infiltration of liver CXR - cardiomegaly, (+) Pacemaker WNL US of abd - (+) cholelithiasis, liver enlarged, fatty infiltration CT Abd/pelvis - (+) diverticulosis, liver fatty infiltration Xray abd - WNL ECG - Electronic ventricular pacemaker, 100% V paced, Afib
--- NOTE | 2017-07-01 21:53 | PN ---
DATE: 07/01/2017 PULMONARY PROGRESS NOTE REFERRING PHYSICIAN: Holly Corbin MD SUBJECTIVE: He is lying in the bed. No headache. No rhinitis. Has a bowel movement. Abdominal pain is better. His surgical drainage is being removed. No nausea. No vomiting. No leg pain. PHYSICAL EXAMINATION GENERAL: In no acute distress. VITAL SIGNS: Temperature is 98, heart rat is 83, respiratory rate is 18, blood pressure is 162/84, pulse oximetry is 98% on room air. HEENT: Moist mucous membrane. Crowded airway. NECK: Supple. No JVD. LUNGS: Has a fair airflow with rhonchi. HEART: S1 and S2. ABDOMEN: Soft, surgical area, mild tenderness. Surgical drain is being removed. EXTREMITIES: There is no edema. NEUROLOGIC: Awake and alert. Follow simple commands. MEDICATIONS: He is on Rocephin 1 g IV daily, Colace 100 mg daily, Coumadin 5 mg will be given, vitamin D 50,000 units daily, Flagyl 500 mg q. 8 hours, Flomax 0.4 mg daily, metformin 500 mg twice a day, insulin coverage, potassium 20 mEq daily, Lasix 40 mg daily, metoprolol tartarate 25 mg twice a day, Lovaza 1 g p.o. daily, Lovenox 30 mg daily, Motrin 400 mg q.6 hours p.r.n., Percocet 5/325 one tab q 6 hours p.r.n., Percocet 5/325 mild pain, Protonix 40 mg daily, Synthroid 25 mcg daily, TriCor 145 mg daily, Trileptal 150 mg daily, vitamin B12 100 daily, Zestril 10 mg daily. LABORATORY DATA: Shows hemoglobin 10.7, hematocrit 32.3, WBC 8.9, platelet count is 249. PTT is 28. Sodium 142, potassium 4.3, chloride 109, bicarbonate 23, BUN 15, creatinine 1.2, glucose 100, calcium 8.7, phosphorus 2.6, magnesium 1.5, total bilirubin 1.2, AST 75, ALT 100, alk phos 135, albumin 3.0. Microbiology, blood cultures had E. coli. IMPRESSION AND PLAN: Cholelithiasis with cholecystitis status post cholecystectomy, history of calcified granuloma on the x-ray, chronic obstructive lung disease, sleep apnea syndrome, coronary artery disease, history of coronary artery bypass surgery, hypertension, hypothyroid, atrial fibrillation, diabetes, morbid obesity, bacteremia, resolving sepsis. Case discussed with regional vice president surgical sales, but patient's endoscopic retrograde cholangiopancreatography was not done?, present is up to surgical and GI team for to pursue it, but continue antibiotics as per Infectious Disease. Keep head at 45 degrees. Sleep apnea precaution. Avoid sedation. Out of bed to chair. Physical therapy. May need repeat blood cultures. Thank you and we will follow with you. John Steele MD
[2017-07-01] MEDS: Oxycodone/Acetaminophen 5/325 mg Tab PO PRN (22:31)
[2017-07-02] MEDS: Pantoprazole 40 mg EC Tab PO SCH (06:35)
[2017-07-02] MEDS: metroNIDAZOLE IV 500 mg/100 ml 500 MG/100 ML BAG IVPB SCH ×3 (06:36→21:24)
[2017-07-02 07:48] LABS: BLOOD UREA NITROGEN 15 mg/dL (7-21); CALCIUM 9.2 mg/dL (8.4-10.5); GFR AFRICAN-AMERICAN > 60; GFR NON-AFRICAN AMERICAN > 60; MAGNESIUM 1.5 mg/dL (1.7-2.2)
--- NOTE | 2017-07-02 07:57 | CP.PCM.PN ---
Subjective - Date & Time of Evaluation Date of Evaluation: 07/02/17 Time of Evaluation: 06:30 - Subjective Subjective: General Surgery- Dr. Gomez Patient seen and examined at bed side this AM. No acute events overnight. Patient pain well controlled tolerating diet, +OOB. Denies Fevers, chills, chest pain, nausea, vomiting, diarrhea. Objective - Vital Signs/Intake and Output Vital Signs (last 24 hours): Temp Pulse Resp BP Pulse Ox 97.4 F L 61 18 125/63 98 07/02/17 00:01 07/02/17 00:01 07/02/17 00:01 07/02/17 00:01 07/02/17 00:01 Intake and Output: 07/02/17 07/02/17 06:59 18:59 Intake Total 520 Balance 520 - Medications Medications: Current Medications Cyanocobalamin (Vitamin B12 100 Mcg Tab) 100 mcg PO BID [facility] Last Admin: 07/01/17 17:47 Dose: 100 mcg Docusate Sodium (Colace) 100 mg PO DAILY [facility] Last Admin: 07/01/17 10:14 Dose: 100 mg Enoxaparin Sodium (Lovenox) 30 mg SC DAILY [facility] PRN Reason: Protocol Last Admin: 07/01/17 10:15 Dose: Not Given Ergocalciferol (Drisdol 50,000 Intl Units Cap) 1 cap PO Q7D [facility] Last Admin: 06/27/17 13:14 Dose: 1 cap Fenofibrate (Tricor) 145 mg PO DAILY [facility] Last Admin: 07/01/17 10:12 Dose: 145 mg Furosemide (Lasix) 40 mg PO QAM [facility] Last Admin: 07/01/17 10:13 Dose: 40 mg Ceftriaxone Sodium 1 gm/ (Sodium Chloride) 100 mls @ 100 mls/hr IVPB DAILY [facility] Last Admin: 07/01/17 10:16 Dose: 100 mls/hr Metronidazole (Flagyl) 500 mg in 100 mls @ 100 mls/hr IVPB Q8 [facility] PRN Reason: Protocol Last Admin: 07/02/17 06:36 Dose: 100 mls/hr Ibuprofen (Motrin Tab) 400 mg PO Q6H PRN PRN Reason: Fever >100.4 F Insulin Human Regular (Humulin R Low) 0 units SC ACHS [facility] PRN Reason: Protocol Last Admin: 07/01/17 21:10 Dose: Not Given Levothyroxine Sodium (Synthroid) 25 mcg PO QAM [facility] Last Admin: 07/01/17 10:13 Dose: 25 mcg Lisinopril (Zestril) 10 mg PO QAM [facility] Last Admin: 07/01/17 10:13 Dose: 10 mg Metformin HCl (Glucophage) 500 mg PO BIDWM [facility] Last Admin: 07/01/17 17:47 Dose: 500 mg Metoprolol Tartrate (Lopressor) 25 mg PO BID [facility] Last Admin: 07/01/17 17:47 Dose: 25 mg Xhpnc-3-Stsh Ethyl Esters (Lovaza) 1 gm PO DAILY [facility] Last Admin: 07/01/17 10:12 Dose: 1 gm Oxcarbazepine (Trileptal) 150 mg PO QAM [facility] PRN Reason: Protocol Last Admin: 07/01/17 10:12 Dose: 150 mg Oxycodone/Acetaminophen (Percocet 5/325 Mg Tab) 1 tab PO Q6H PRN PRN Reason: Pain, severe (8-10) Stop: 07/02/17 13:00 Last Admin: 07/01/17 22:31 Dose: 1 tab Oxycodone/Acetaminophen (Percocet 5/325 Mg Tab) 2 tab PO Q4H PRN PRN Reason: Pain, moderate (4-7) Stop: 07/02/17 15:12 Last Admin: 06/30/17 02:43 Dose: 2 tab Pantoprazole Sodium (Protonix Ec Tab) 40 mg PO ACB [facility] Last Admin: 07/02/17 06:35 Dose: 40 mg Potassium Chloride (K-Dur 20 Meq Er Tab) 20 meq PO DAILY [facility] Last Admin: 07/01/17 10:14 Dose: 20 meq Tamsulosin HCl (Flomax) 0.4 mg PO DAILY [facility] Last Admin: 07/01/17 10:12 Dose: 0.4 mg Warfarin Sodium (Coumadin) 5 mg PO 1800 [facility] PRN Reason: Protocol Last Admin: 07/01/17 17:47 Dose: 5 mg - Labs Labs: 07/01/17 06:30 07/02/17 07:05 PT 13.1 SECONDS (9.4-12.5) H 06/30/17 06:00 INR 1.19 (0.93-1.08) H 06/30/17 06:00 APTT 28.2 Seconds (25.1-36.5) 07/01/17 06:30 - Constitutional Appears: Non-toxic, No Acute Distress - Head Exam Head Exam: ATRAUMATIC - Eye Exam Eye Exam: EOMI. absent: Scleral icterus - ENT Exam ENT Exam: Mucous Membranes Moist - Respiratory Exam Respiratory Exam: NORMAL BREATHING PATTERN. absent: Accessory Muscle Use, Respiratory Distress - Cardiovascular Exam Cardiovascular Exam: +S1, +S2. absent: Bradycardia, Tachycardia - GI/Abdominal Exam GI & Abdominal Exam: Distended, Soft, Tenderness. absent: Firm, Guarding, Rigid Additional comments: appropriately tender around incision normal distention of abdomen - Extremities Exam Extremities Exam: Normal Inspection. absent: Calf Tenderness - Neurological Exam Neurological Exam: Alert, Awake, Oriented x3 - Psychiatric Exam Psychiatric exam: Normal Affect - Skin Skin Exam: Intact, Warm Additional comments: incisions c/d/i Assessment and Plan - Assessment and Plan (Free Text) Assessment: 71M s/p laparoscopic cholecystectomy POD#4 Plan: - continue regular low fat diet - Abx per ID - T.Bili normalized, LFT trending down - no plan for ERCP unless pt becomes symptomatic - anti-coagulation therapy- warfarin and lovenox; INR sub-therapeutic at this time - cleared for discharge from a surgical standpoint - further recs per Dr. Gomez surgical attending Winston Lowry PGY1
[2017-07-02 08:13] LABS: HEMOGLOBIN 10.9 g/dL (14.0-18.0); MEAN CELL VOLUME 91.3 fl (80.0-105.0); MEAN CORPUSCULAR HEMOGLOBIN 29.5 pg (25.0-35.0); MEAN CORPUSCULAR HGB CONC 32.3 g/dl (31.0-37.0); MEAN PLATELET VOLUME 10.4 fl (7.0-11.0); RBC 3.69 10^6/uL (3.5-6.1); RED CELL DISTRIBUTION WIDTH 14.6 % (11.5-14.5); WHITE BLOOD COUNT 10.1 10^3/ul (4.5-11.0)
[2017-07-02 08:15] LABS: INR 1.25 (0.93-1.08); PROTHROMBIN TIME 13.8 SECONDS (9.4-12.5)
[2017-07-02] MEDS: Insulin Reg-LOW-Coverage SC SCH ×4 (08:29→21:00)
[2017-07-02] MEDS: Enoxaparin 30 mg Syringe SC SCH (09:04)
[2017-07-02] MEDS: Omega-3-Acid Ethyl Esters 1 GM Cap PO SCH (09:06)
[2017-07-02] MEDS: Levothyroxine 25 MCG TAB PO SCH (09:07)
[2017-07-02] MEDS: Potassium Chloride 20 mEq ER Tab PO SCH (09:07)
[2017-07-02 09:37] LABS: ALB/GLOB RATIO 0.9 (1.1-1.8); ALBUMIN 3.1 g/dL (3.0-4.8); ALT/SGPT 81 U/L (7-56); AST/SGOT 53 U/L (17-59)
--- NOTE | 2017-07-02 14:35 | CP.PCM.PN ---
Subjective - Date & Time of Evaluation Date of Evaluation: 07/02/17 Time of Evaluation: 14:30 - Subjective Subjective: Infectious Disease Follow Up: July 02, 2017 71 yo male brought to [facility] [place] for 1 day history of abdominal pain. The patient was found to have fevers up to 101.3 F. Mild leukocytosis with a left shift. Diarrhea episodes for the past two days. Patient with sharp epigastric pains with dizziness, nausea, and lightheadedness. No other symptoms given on admission. CT scan with signs of diverticulosis. Cholelithiasis on Abdominal ultrasound. He states pain is decreased today. Taken to OR for cholecystectomy. Notes in chart signalling that patient is going for an ERCP soon. Supportive care. Abdominal Ultrasound done. Fatty infiltration of the liver seen on ultrasound. Patient currently is comfortable and tolerating solid foods. Growth of E. coli in blood cultures. Gram negative rods in abdominal surgical cultures presumed E. Coli. Currently on Rocpehin IV for antibiotic coverage. Objective - Vital Signs/Intake and Output Vital Signs (last 24 hours): Temp Pulse Resp BP Pulse Ox 97.8 F 60 18 177/66 H 98 07/02/17 08:19 07/02/17 09:05 07/02/17 08:19 07/02/17 09:05 07/02/17 08:19 Intake and Output: 07/02/17 07/02/17 06:59 18:59 Intake Total 520 Balance 520 - Medications Medications: Current Medications Cyanocobalamin (Vitamin B12 100 Mcg Tab) 100 mcg PO BID [facility] Last Admin: 07/02/17 09:07 Dose: 100 mcg Docusate Sodium (Colace) 100 mg PO DAILY [facility] Last Admin: 07/02/17 09:07 Dose: 100 mg Enoxaparin Sodium (Lovenox) 40 mg SC DAILY [facility] PRN Reason: Protocol Ergocalciferol (Drisdol 50,000 Intl Units Cap) 1 cap PO Q7D [facility] Last Admin: 06/27/17 13:14 Dose: 1 cap Fenofibrate (Tricor) 145 mg PO DAILY [facility] Last Admin: 07/02/17 09:07 Dose: 145 mg Furosemide (Lasix) 40 mg PO QAM [facility] Last Admin: 07/02/17 09:08 Dose: Not Given Ceftriaxone Sodium 1 gm/ (Sodium Chloride) 100 mls @ 100 mls/hr IVPB DAILY [facility] Last Admin: 07/02/17 09:03 Dose: 100 mls/hr Metronidazole (Flagyl) 500 mg in 100 mls @ 100 mls/hr IVPB Q8 [facility] PRN Reason: Protocol Last Admin: 07/02/17 06:36 Dose: 100 mls/hr Ibuprofen (Motrin Tab) 400 mg PO Q6H PRN PRN Reason: Fever >100.4 F Insulin Human Regular (Humulin R Low) 0 units SC ACHS [facility] PRN Reason: Protocol Last Admin: 07/02/17 11:51 Dose: Not Given Levothyroxine Sodium (Synthroid) 25 mcg PO QAM [facility] Last Admin: 07/02/17 09:07 Dose: 25 mcg Lisinopril (Zestril) 10 mg PO QAM [facility] Last Admin: 07/02/17 09:05 Dose: 10 mg Metformin HCl (Glucophage) 500 mg PO BIDWM [facility] Last Admin: 07/02/17 08:58 Dose: 500 mg Metoprolol Tartrate (Lopressor) 25 mg PO BID [facility] Last Admin: 07/02/17 09:05 Dose: 25 mg [id number] Ethyl Esters (Lovaza) 1 gm PO DAILY [facility] Last Admin: 07/02/17 09:06 Dose: 1 gm Oxcarbazepine (Trileptal) 150 mg PO QAM [facility] PRN Reason: Protocol Last Admin: 07/02/17 09:06 Dose: 150 mg Oxycodone/Acetaminophen (Percocet 5/325 Mg Tab) 2 tab PO Q4H PRN PRN Reason: Pain, moderate (4-7) Stop: 07/02/17 15:12 Last Admin: 06/30/17 02:43 Dose: 2 tab Pantoprazole Sodium (Protonix Ec Tab) 40 mg PO ACB [facility] Last Admin: 07/02/17 06:35 Dose: 40 mg Potassium Chloride (K-Dur 20 Meq Er Tab) 20 meq PO DAILY [facility] Last Admin: 07/02/17 09:07 Dose: 20 meq Tamsulosin HCl (Flomax) 0.4 mg PO DAILY [facility] Last Admin: 07/02/17 09:05 Dose: 0.4 mg Warfarin Sodium (Coumadin) 10 mg PO 1800 [facility] PRN Reason: Protocol - Labs Labs: 07/02/17 07:45 07/02/17 07:05 PT 13.8 SECONDS (9.4-12.5) H 07/02/17 07:05 INR 1.25 (0.93-1.08) H 07/02/17 07:05 APTT 28.2 Seconds (25.1-36.5) 07/01/17 06:30 Assessment and Plan - Assessment and Plan (Free Text) Assessment: 71 yo male with abdominal pain, diarrhea, and fevers. [place] cultures sent. CT scan showing diverticulosis but no signs of diverticulitis. Fevers up to 101.3 F on admission. Cultures of stool as well as C. Diff sent for evaluation. Monitor WBC trend and fever trend. Started on Rocephin for antibiotic coverage. Added Flagyl to regimen. Seen by GI. Supportive care. Cholelithiasis on abdominal ultrasound. Cholecystectomy done. Abdominal ultrasound mostly unimpressive. Possible ERCP? Continue on Rocephin and Flagyl for now. E. coli growth on blood cultures and presumed growth from abdominal surgical cultures. Supportive care. The patient is feeling better now. Tolerating oral feeds and solid foods. When ready for discharge, the patient can be switched to oral antibiotics Keflex 500mg PO TID for 10 more days on discharge. Thank you for allowing me to participate in the care of this patient, we will follow with you.
[2017-07-02] MEDS: Oxycodone/Acetaminophen 5/325 mg Tab PO PRN ×2 (14:41→22:57)
[2017-07-02] MEDS ORDERED: Magnesium Sulfate 1 gm in D5W 1 GM/100 ML BAG IVPB ONE (15:58)
--- NOTE | 2017-07-02 18:30 | PN ---
DATE: 07/02/2017 SUBJECTIVE: This patient was seen and evaluated earlier today. The patient is tolerating the diet, complains some discomfort at the trocar surgical site. PHYSICAL EXAMINATION: VITAL SIGNS: Temperature 97.8, pulse is 60, blood pressure 171/66, respirations 18 and O2 saturation 98. HEENT: Atraumatic and anicteric. NECK: Supple. HEART: S1 and S2 heard. LUNGS: Bilateral air entry present. ABDOMEN: Soft. There a surgical incision site is noticed. Mild tenderness at the site noticed. EXTREMITIES: 1+ edema present. LABORATORY DATA: Hemoglobin 10.9, hematocrit 33.7, WBC 10.1, and platelets 332. LFT's shows downward trend, ALT is 81, alkaline phosphatase is 143, total bilirubin has come down to normal 1.2, magnesium is 1.5. IMPRESSION: This 71-year-old patient with status post cholecystectomy for acute cholecystitis. Liver function tests been improving. The patient had a history of atrial fibrillation, his INR is still 1.25, on Lovenox 40 mg daily and also the patient is being started on Coumadin. Followup of the liver function tests and INR and would supplement magnesium. Continue the antibiotics as per Infectious Disease. Thank you very much for allowing me to participate in the care of the patient. Stacey Tolentino MD [facility]
--- NOTE | 2017-07-02 20:20 | PN ---
DATE: 07/02/2017 PULMONARY PROGRESS NOTE REFERRING PHYSICIAN: Holly Corbin MD SUBJECTIVE: The patient is lying in the chair. Night was unremarkable, tolerating p.o. diet well. Has a bowel movement, still have a right upper quadrant, some tenderness, also have pain with cough. No nausea, no dysuria. No leg pain or leg swelling. PHYSICAL EXAMINATION GENERAL: In no acute distress. VITAL SIGNS: Temperature is 98, heart rate 60, respiratory rate is 18, blood pressure of 141/63, pulse of 98% room air. HEENT: Moist mucous membranes. Crowded airway. NECK: Supple. No JVD. LUNGS: Has fair airflow with few rhonchi. HEART: S1 and S2. ABDOMEN: Soft, nontender, nondistended. Does have a tenderness on the right upper quadrant and incision site. EXTREMITIES: There is no edema. NEUROLOGIC: Awake and follows simple command. MEDICATIONS: He is on ceftriaxone 1 g IV daily, Colace 100 mg daily, Coumadin 10 mg will be given today, vitamin D 50,000 units weekly, Flagyl 500 mg q. 8 hours, Flomax 0.4 mg daily, metformin 500 mg twice a day, insulin coverage, potassium 20 mEq daily, Lasix 40 mg daily, metoprolol tartrate 25 mg twice a day, Lovaza 1 g daily, Lovenox 40 mg daily, Motrin 400 mg q. 6 hours p.r.n., Protonix 40 mg daily, Synthroid 25 mcg daily, Tricor 145 mg daily, Trileptal 150 mg daily, vitamin B12 100 mg twice a day, AND Zestril 10 mg in the morning. LABORATORY DATA: Shows hemoglobin 10.9, hematocrit 33.7, WBC 10.1, platelet count is 332. INR 1.25. Sodium 139, potassium 4.1, chloride 106, bicarbonate 22, BUN 15, creatinine 1.1, glucose is 111, calcium 9.2, phosphorus 3.3, magnesium 1.5, AST 53, ALT 81, alk phos is 143. Albumin is 3.3. Microbiology: Repeat blood culture, there is no growth so far. IMPRESSION AND PLAN: Cholecystitis status post cholecystectomy, calcified granuloma on the x-rays of the lungs, chronic obstructive lung disease, sleep apnea syndrome, coronary artery disease, history of coronary artery bypass surgery, hypertension, hypothyroid, atrial fibrillation, diabetes, morbid obesity, resolving bacteremia. Pulmonary point of view, doing okay. Continue bronchodilator, antibiotics, gastric prophylaxis. Deep venous thrombosis prophylaxis, fall precaution, gastrointestinal and Infectious Diseases followup. Thank you and we will follow with you. John Steele MD
--- NOTE | 2017-07-02 20:37 | PN ---
DATE: SUBJECTIVE: The patient is a 71-year-old male. The patient is seen and examined at the bedside, sitting on the chair, and feeling a little bit better. Still having abdominal pain. Abdomen is distended, tender and from one of the surgical place, there is a drainage. No shortness of breath. No nausea, vomiting, or diarrhea. No acute event happened overnight, out of bed, and sitting on the chair. No fever. No chills. PHYSICAL EXAMINATION: VITAL SIGNS: Temperature 97.4, pulse 61, respiratory rate 18, blood pressure 122/63, and pulse oximetry 98%. HEENT: Head is normocephalic and atraumatic. Eyes: PERRLA. Extraocular muscles are intact. Conjunctivae are clear. Nose is patent. Mucous membrane moist. NECK: Supple. No carotid bruits, JVD, or thyromegaly. CHEST: Bilaterally symmetrical. HEART: S1 and S2 positive. LUNGS: Clear to auscultation. ABDOMEN: Soft. Bowel sounds are present. No organomegaly. EXTREMITIES: No edema. No cyanosis. NEUROLOGIC: The patient is awake and alert. Moving all 4 extremities. No focal deficits. MEDICATIONS: Cyanocobalamin, docusate, Lovenox, TriCor, Lasix, Flagyl, Motrin, insulin, Zestril, Glucophage, Lovaza, Percocet, and Protonix. LABORATORY DATA: White blood cell is 8.9, hemoglobin 10.7, hematocrit 32.3, and platelet 249. Sodium 139, potassium 4.1, BUN 15, creatinine 1.1, and glucose 109. ASSESSMENT AND PLAN: Mr. Tk Woodard is a 71-year-old male with anemia, s/p laparoscopy, cholecystectomy, postoperative day #4. According to surgical team, continue regular low-fat diet, antibiotics as per Infectious Disease. Liver function tests are trending down. No plan for ERCP unless the patient became symptomatic. Anticoagulation therapy started warfarin and Lovenox. INR is subtherapeutic at this time. Lovenox was 30, I increased to 40 and today we will give dose of 10 mg of Coumadin. We will sent the patient to TCU for comedine bridging. According to surgery, the patient is okay for discharge, now we are working on stabilizing INR. History of diverticulosis, cholelithiasis, coronary artery disease, chronic obstructive pulmonary disease, and obstructive sleep apnea syndrome. White blood cell is trending down. Got Rocephin and Flagyl. According to Infectious Disease, continue Rocephin and Flagyl. Yeast like growth on blood cultures and presumed growth on abdominal surgical culture, supportive care. We will continue present treatment. Gastrointestinal and deep venous thrombosis prophylaxis, out of bed, physical therapy, and we will follow. Holly Corbin MD [facility]
--- NOTE | 2017-07-02 22:59 | CP.PCM.PCO ---
Physician Communication Note - Physician Communication Note Physician Communication Note: OK D/C w Keflex/coumadin and office f/u/NO ERCP now!
[2017-07-03] MEDS: metroNIDAZOLE IV 500 mg/100 ml 500 MG/100 ML BAG IVPB SCH ×3 (06:02→21:07)
[2017-07-03] MEDS: Oxycodone/Acetaminophen 5/325 mg Tab PO PRN ×3 (06:06→22:13)
[2017-07-03] MEDS: Pantoprazole 40 mg EC Tab PO SCH (07:03)
[2017-07-03 08:11] LABS: INR 1.56 (0.93-1.08); PROTHROMBIN TIME 17.3 SECONDS (9.4-12.5)
[2017-07-03] MEDS: Insulin Reg-LOW-Coverage SC SCH ×4 (08:18→22:18)
[2017-07-03] MEDS: Potassium Chloride 20 mEq ER Tab PO SCH (09:28)
[2017-07-03] MEDS: Enoxaparin 40 mg Syringe SC SCH (09:28)
[2017-07-03] MEDS: Omega-3-Acid Ethyl Esters 1 GM Cap PO SCH (09:29)
[2017-07-03] MEDS: Levothyroxine 25 MCG TAB PO SCH (09:29)
[2017-07-03] MEDS ORDERED: Magnesium Sulfate 2 GM in Sodium Chloride 0.9% 100 ML IVPB ONE (12:17)
[2017-07-03 13:59] LABS: PROTHROMBIN TIME 17.3 SECONDS (9.4-12.5)
[2017-07-03 14:00] LABS: INR 1.57 (0.93-1.08)
[2017-07-03] MEDS ORDERED: HYDROmorphone 0.5 mg/0.5 ml ISec IVP STA (14:55)
[2017-07-03] MEDS ORDERED: oxyCODONE 5 mg Immediate Release Tab PO STA (14:55)
--- NOTE | 2017-07-03 17:02 | CP.PCM.PN ---
Subjective - Date & Time of Evaluation Date of Evaluation: 07/03/17 Time of Evaluation: 16:00 - Subjective Subjective: Infectious Disease Follow Up: July 03, 2017 71 yo male brought [place] [facility] [place] 1 day history of abdominal pain. The patient was found to have fevers up to 101.3 F. Mild leukocytosis with a left shift. Diarrhea episodes for the past two days. Patient with sharp epigastric pains with dizziness, nausea, and lightheadedness. No other symptoms given on admission. CT scan with signs of diverticulosis. Cholelithiasis on Abdominal ultrasound. He states pain is decreased today. Taken to OR for cholecystectomy. Notes in chart signalling that patient is going for an ERCP soon. Supportive care. Abdominal Ultrasound done. Fatty infiltration of the liver seen on ultrasound. Patient currently is comfortable and tolerating solid foods. Growth of E. coli in blood cultures. Gram negative rods in abdominal surgical cultures presumed E. Coli. Currently on Rocpehin IV for antibiotic coverage. Awaiting therapeutic INR. Objective - Vital Signs/Intake and Output Vital Signs (last 24 hours): Temp Pulse Resp BP Pulse Ox 98.7 F 70 20 151/78 H 98 07/03/17 07:43 07/03/17 09:29 07/03/17 07:43 07/03/17 09:29 07/03/17 07:43 Intake and Output: 07/03/17 07/03/17 06:59 18:59 Intake Total 1400 960 Output Total 2400 Balance 1400 -1440 - Medications Medications: Current Medications Cyanocobalamin (Vitamin B12 100 Mcg Tab) 100 mcg PO BID [facility] Last Admin: 07/03/17 09:29 Dose: 100 mcg Docusate Sodium (Colace) 100 mg PO DAILY [facility] Last Admin: 07/03/17 09:28 Dose: 100 mg Enoxaparin Sodium (Lovenox) 40 mg SC DAILY [facility] PRN Reason: Protocol Last Admin: 07/03/17 09:28 Dose: 40 mg Ergocalciferol (Drisdol 50,000 Intl Units Cap) 1 cap PO Q7D [facility] Last Admin: 06/27/17 13:14 Dose: 1 cap Fenofibrate (Tricor) 145 mg PO DAILY [facility] Last Admin: 07/03/17 09:28 Dose: 145 mg Furosemide (Lasix) 40 mg PO QAM [facility] Last Admin: 07/03/17 09:27 Dose: 40 mg Metronidazole (Flagyl) 500 mg in 100 mls @ 100 mls/hr IVPB Q8 [facility] PRN Reason: Protocol Last Admin: 07/03/17 13:09 Dose: 100 mls/hr Insulin Human Regular (Humulin R Low) 0 units SC ACHS [facility] PRN Reason: Protocol Last Admin: 07/03/17 16:41 Dose: Not Given Levothyroxine Sodium (Synthroid) 25 mcg PO QAM [facility] Last Admin: 07/03/17 09:29 Dose: 25 mcg Lisinopril (Zestril) 10 mg PO QAM [facility] Last Admin: 07/03/17 09:29 Dose: 10 mg Metformin HCl (Glucophage) 500 mg PO BIDWM [facility] Last Admin: 07/03/17 08:29 Dose: 500 mg Metoprolol Tartrate (Lopressor) 25 mg PO BID [facility] Last Admin: 07/03/17 09:29 Dose: 25 mg [id number] Ethyl Esters (Lovaza) 1 gm PO DAILY [facility] Last Admin: 07/03/17 09:29 Dose: 1 gm Oxcarbazepine (Trileptal) 150 mg PO QAM [facility] PRN Reason: Protocol Last Admin: 07/03/17 09:29 Dose: 150 mg Oxycodone/Acetaminophen (Percocet 5/325 Mg Tab) 1 tab PO Q4H PRN PRN Reason: Pain, moderate (4-7) Stop: 07/05/17 22:43 Last Admin: 07/03/17 13:10 Dose: 1 tab Pantoprazole Sodium (Protonix Ec Tab) 40 mg PO ACB [facility] Last Admin: 07/03/17 07:03 Dose: 40 mg Potassium Chloride (K-Dur 20 Meq Er Tab) 20 meq PO DAILY [facility] Last Admin: 07/03/17 09:28 Dose: 20 meq Tamsulosin HCl (Flomax) 0.4 mg PO DAILY [facility] Last Admin: 07/03/17 09:29 Dose: 0.4 mg Warfarin Sodium (Coumadin) 10 mg PO 1800 [facility] PRN Reason: Protocol Last Admin: 07/02/17 17:35 Dose: 10 mg - Labs Labs: 07/02/17 07:45 07/02/17 07:05 PT 17.3 SECONDS (9.4-12.5) H 07/03/17 13:00 INR 1.57 (0.93-1.08) H 07/03/17 13:00 APTT 28.2 Seconds (25.1-36.5) 07/01/17 06:30 - Constitutional Appears: Non-toxic, No Acute Distress, Chronically Ill - Head Exam Head Exam: ATRAUMATIC, NORMOCEPHALIC - Eye Exam Eye Exam: EOMI, PERRL Pupil Exam: NORMAL ACCOMODATION, PERRL - ENT Exam ENT Exam: Mucous Membranes Moist, Normal External Ear Exam, TM's Normal Bilaterally - Neck Exam Neck Exam: Full ROM, Normal Inspection - Respiratory Exam Respiratory Exam: Clear to Ausculation Bilateral, NORMAL BREATHING PATTERN. absent: Rales, Rhonchi, Wheezes - Cardiovascular Exam Cardiovascular Exam: REGULAR RHYTHM, RRR, +S1, +S2 - GI/Abdominal Exam GI & Abdominal Exam: Soft, Normal Bowel Sounds. absent: Distended, Tenderness - Extremities Exam Extremities Exam: Full ROM, Normal Inspection - Neurological Exam Neurological Exam: Alert, Awake, CN II-XII Intact, Oriented x3 - Psychiatric Exam Psychiatric exam: Normal Affect, Normal Mood - Skin Skin Exam: Intact, Normal Color Assessment and Plan - Assessment and Plan (Free Text) Assessment: 71 yo male with abdominal pain, diarrhea, and fevers. [place]gs cultures sent. CT scan showing diverticulosis but no signs of diverticulitis. Fevers up to 101.3 F on admission. Cultures of stool as well as C. Diff sent for evaluation. Monitor WBC trend and fever trend. Started on Rocephin for antibiotic coverage. Added Flagyl to regimen. Seen by GI. Supportive care. Cholelithiasis on abdominal ultrasound. Cholecystectomy done. Abdominal ultrasound mostly unimpressive. Possible ERCP? Continue on Rocephin and Flagyl for now. E. coli growth on blood cultures and presumed growth from abdominal surgical cultures. Supportive care. The patient is feeling better now. Tolerating oral feeds and solid foods. When ready for discharge, the patient can be switched to oral antibiotics Keflex 500mg PO TID for 10 more days on discharge. Patient is awaiting INR to be therapeutic with anticoagulants before discharge. Thank you for allowing me to participate in the care of this patient, we will follow with you.
[2017-07-03 19:06] LABS: INR 1.61 (0.93-1.08); PROTHROMBIN TIME 17.7 SECONDS (9.4-12.5)
--- NOTE | 2017-07-03 22:03 | PN ---
SUBJECTIVE: Patient is seen and examined on the bedside, looking comfortable, sitting on the chair. Abdominal pain is getting better. No nausea, vomiting, or diarrhea. No hematuria. No hematochezia. No swelling of the legs. No chest pain. No palpitation. PHYSICAL EXAMINATION VITAL SIGNS: Temperature 98.7, pulse 70, blood pressure 151/78, respiratory rate 20. HEENT: Head is normocephalic and atraumatic. Eyes; PERRLA. Extraocular muscles are intact. Conjunctivae clear. Nose patent. Mucous membranes moist. NECK: Supple. No carotid bruits, JVD or thyromegaly. CHEST: Bilateral symmetrical. HEART: S1 and S2 positive. LUNGS: Clear to auscultation. ABDOMEN: Soft. Bowel sounds present. No organomegaly. EXTREMITIES: No edema. No cyanosis. NEUROLOGIC: Patient is awake and alert. Moving all 4 extremities. No focal deficits. MEDICATIONS: Colace, Coumadin, vitamin D, Flagyl, Flomax, metformin, insulin, potassium, Lasix, Lopressor, Lovaza, Lovenox, Percocet, Protonix, Synthroid, TriCor, Zestril, albuterol, Trileptal. LABORATORY DATA: White blood cell 10.1, hemoglobin 10.9, hematocrit 33.7, platelets 332, magnesium 1.4, glucose 106, sodium 139, potassium 4.1, BUN 15, creatinine 1.1, ASSESSMENT AND PLAN: Mr. Tk Woodard is a 71 years old male with history of leukocytosis improved, anemia, hyperglycemia, hypomagnesemia, abnormal liver function test, trending down. INR is 1.57, yesterday was 1.25, getting Coumadin 10 mg, getting bridging, cholelithiasis, cholecystectomy by Dr. Oscar Brown. Plan was ERCP, now Dr. Brown canceled that because liver function was trending down. According to ID, continue Rocephin and Flagyl. E. coli growth on blood cultures and presumed growth from abdominal surgical culture. Patient is tolerating food very well. According to ID, continue antibiotics. History of obstructive sleep apnea syndrome, chronic obstructive pulmonary disease, obesity, coronary artery disease, history of cerebrovascular accident, calcified granuloma on the x-ray of the lungs, history of coronary artery bypass surgery, hypertension, hypothyroidism, atrial fibrillation, getting Coumadin, resolving bacteremia, gastrointestinal and deep venous thrombosis prophylaxis, out of bed, physical therapy. We will follow. Holly Corbin MD [facility]
--- NOTE | 2017-07-03 23:50 | PN ---
PULMONARY PROGRESS NOTE DATE: 07/03/2017 REFERRING PHYSICIAN: Holly Corbin MD SUBJECTIVE: The patient is sitting up in the chair. Night was unremarkable and feels some pain in the right upper quadrant area. No cough. No sputum production. No nausea. No leg pain or leg swelling. OBJECTIVE: GENERAL: In no acute distress. VITAL SIGNS: Temperature is 98, heart rate is 67, respiratory rate is 18, blood pressure is 144/70, and pulse ox is 98% on room air. HEENT: Moist mucous membranes. Crowded airway. Mallampati score is IV. NECK: Short thick neck. LUNGS: Has a fair airflow with rhonchi. HEART: S1 and S2. ABDOMEN: Positive bowel sounds. Surgical area has some mild tenderness. Right upper quadrant is tender. EXTREMITIES: There is no edema. NEUROLOGIC: Awake, alert, and follows simple commands. MEDICATIONS: He is on Colace 100 mg daily, Coumadin 10 mg will be given tonight, vitamin D 50,000 units weekly, Flagyl 500 mg q.8 hours, Flomax 0.4 mg daily, metformin 500 mg twice a day, insulin coverage, potassium 20 mEq daily, Lasix 40 mg daily, metoprolol tartrate 25 mg twice a day, Lovaza 1 g daily, Lovenox 40 mg daily, Percocet 5/325 one tablet q.4 hours p.r.n., Protonix 40 mg daily, Synthroid 25 mcg daily, TriCor 145 mg daily, Trileptal 150 mg daily, vitamin B12 100 mcg twice a day, and Zestril 10 mg daily. LABORATORY DATA: Reviewed and shows INR 1.61. Blood sugar is 106. Repeat blood culture from 07/01/2017 so far there is no growth. IMPRESSION AND PLAN: Status post cholecystectomy, chronic lung disease, obstructive sleep apnea syndrome, coronary artery disease, history of coronary artery bypass surgery, hypertension, hypothyroid, atrial fibrillation, diabetes, morbid obesity, and resolving bacteremia. Continue antibiotics as per Infectious Disease, bronchodilator, keep head at 45 degrees, and gastric and deep venous thrombosis prophylaxis. According to surgical note, the patient is being scheduled for endoscopic retrograde cholangiopancreatography. Thank you and we will follow with you. John Steele MD [facility] # [id number]
[2017-07-04 01:39] VITALS: RESP 20
[2017-07-04] MEDS: Pantoprazole 40 mg EC Tab PO SCH (06:34)
[2017-07-04 07:09] LABS: BASO # 0.09 K/mm3 (0.0-2.0); BASO % 0.9 % (0.0-3.0); EOS # 0.4 (0.0-0.7); EOS % 3.9 % (1.5-5.0); GRAN # 5.8 (1.4-6.5); GRAN % 58.2 % (50.0-68.0); HEMOGLOBIN 11.5 g/dL (14.0-18.0); LYMPH # 2.6 (1.2-3.4); LYMPH % 25.8 % (22.0-35.0); MEAN CELL VOLUME 91.3 fl (80.0-105.0); MEAN CORPUSCULAR HEMOGLOBIN 30.2 pg (25.0-35.0); MEAN PLATELET VOLUME 9.6 fl (7.0-11.0); MONO # 1.1 (0.1-0.6); MONO % 11.2 % (1.0-6.0); RBC 3.81 10^6/uL (3.5-6.1); RED CELL DISTRIBUTION WIDTH 14.8 % (11.5-14.5)
[2017-07-04 07:48] VITALS: BP 159/71; PULSE 68; TEMP 98.7; O2SAT 95
[2017-07-04 07:57] LABS: ALB/GLOB RATIO 0.9 (1.1-1.8); ALBUMIN 3.6 g/dL (3.0-4.8); ALT/SGPT 66 U/L (7-56); AST/SGOT 52 U/L (17-59); BLOOD UREA NITROGEN 19 mg/dL (7-21); CALCIUM 9.8 mg/dL (8.4-10.5); GFR AFRICAN-AMERICAN > 60; GFR NON-AFRICAN AMERICAN 55; MAGNESIUM 1.6 mg/dL (1.7-2.2)
[2017-07-04] MEDS: Omega-3-Acid Ethyl Esters 1 GM Cap PO SCH (10:30)
[2017-07-04] MEDS: Potassium Chloride 20 mEq ER Tab PO SCH (10:32)
[2017-07-04] MEDS: Levothyroxine 25 MCG TAB PO SCH (10:32)
[2017-07-04] MEDS: Insulin Reg-LOW-Coverage SC SCH ×2 (10:33→17:46)
[2017-07-04] MEDS: Enoxaparin 40 mg Syringe SC SCH (10:35)
[2017-07-04] MEDS: Ergocalciferol 50,000 Intl Units Cap PO SCH (10:40)
--- NOTE | 2017-07-04 10:48 | PN ---
DATE: REASON FOR CONSULTATION: Preop and postop followup status post cholecystectomy, coronary artery disease, history of atrial fibrillation, coronary artery bypass graft, stone in common bile duct. SUBJECTIVE: The patient denies any chest pain, shortness of breath or any palpitation, having his breakfast, feels okay. PHYSICAL EXAMINATION: GENERAL: Not in apparent distress. VITAL SIGNS: As follows: Temperature afebrile, heart rate 60, and blood pressure 146/76. HEENT: PERRLA. Extraocular muscles intact. NECK: Supple. No carotid bruit or thyromegaly. CHEST: Clear to auscultation. HEART: S1 and S2 regular. ABDOMEN: Soft. EXTREMITIES: Clubbing and cyanosis negative. LABORATORY DATA: Blood workup as follows: WBC 10, hemoglobin 11.5, hematocrit 34.8, and platelet count 384. Chemistry shows sodium 139, potassium 4.3, chloride 103, carbon dioxide 29, anion gap of 12, BUN 19, and creatinine 1.3. INR today was not done, yesterday was 1.61. 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 He is status post MV repair with bioprosthetic valve. Ejection fraction 55%. RECOMMENDATIONS: We will get stat PT/INR. Depending upon INR, we will give 2 days dose of Coumadin. As per surgical note, the patient is okay to discharge on Coumadin and Keflex. Further recommendation as per Dr. Corbin. The patient is stable from Cardiology point of view to be discharged. Continue metoprolol. Continue lisinopril and continue gentle Lasix. We will start back furosemide and we will follow up PT/INR today. John Yo MD
[2017-07-04 10:55] LABS: INR 2.19 (0.93-1.08); PROTHROMBIN TIME 24.5 SECONDS (9.4-12.5)
--- NOTE | 2017-07-04 13:51 | CP.PCM.PN ---
Subjective - Date & Time of Evaluation Date of Evaluation: 07/04/17 Time of Evaluation: 13:00 - Subjective Subjective: Infectious Disease Follow Up: 2017 71 yo male brought to [facility] for 1 day history of abdominal pain. The patient was found to have fevers up to 101.3 F. Mild leukocytosis with a left shift. Diarrhea episodes for the past two days. Patient with sharp epigastric pains with dizziness, nausea, and lightheadedness. No other symptoms given on admission. CT scan with signs of diverticulosis. Cholelithiasis on Abdominal ultrasound. He states pain is decreased today. Taken to OR for cholecystectomy. Notes in chart signalling that patient is going for an ERCP soon. Supportive care. Abdominal Ultrasound done. Fatty infiltration of the liver seen on ultrasound. Patient currently is comfortable and tolerating solid foods. Growth of E. coli in blood cultures. Gram negative rods in abdominal surgical cultures presumed E. Coli. Currently on Rocpehin IV for antibiotic coverage. Awaiting therapeutic INR. Objective - Vital Signs/Intake and Output Vital Signs (last 24 hours): Temp Pulse Resp BP Pulse Ox 98.7 F 68 20 159/71 H 95 07/04/17 07:30 07/04/17 10:32 07/04/17 07:30 07/04/17 10:33 07/04/17 07:30 Intake and Output: 07/04/17 07/04/17 06:59 18:59 Intake Total 1340 600 Balance 1340 600 - Medications Medications: Current Medications Cyanocobalamin (Vitamin B12 100 Mcg Tab) 100 mcg PO BID [facility] Last Admin: 07/04/17 10:31 Dose: 100 mcg Docusate Sodium (Colace) 100 mg PO DAILY [facility] Last Admin: 07/04/17 10:31 Dose: 100 mg Enoxaparin Sodium (Lovenox) 40 mg SC DAILY [facility] PRN Reason: Protocol Last Admin: 07/04/17 10:35 Dose: 40 mg Ergocalciferol (Drisdol 50,000 Intl Units Cap) 1 cap PO Q7D [facility] Last Admin: 07/04/17 10:40 Dose: 1 cap Fenofibrate (Tricor) 145 mg PO DAILY [facility] Last Admin: 07/04/17 10:31 Dose: 145 mg Furosemide (Lasix) 40 mg PO QAM [facility] Last Admin: 01/01/18 10:33 Dose: 40 mg Insulin Human Regular (Humulin R Low) 0 units SC ACHS [facility] PRN Reason: Protocol Last Admin: 07/04/17 10:33 Dose: Not Given Levothyroxine Sodium (Synthroid) 25 mcg PO QAM [facility] Last Admin: 07/04/17 10:32 Dose: 25 mcg Lisinopril (Zestril) 10 mg PO QAM [facility] Last Admin: 07/04/17 10:31 Dose: 10 mg Metformin HCl (Glucophage) 500 mg PO BIDWM [facility] Last Admin: 07/04/17 09:00 Dose: 500 mg Metoprolol Tartrate (Lopressor) 25 mg PO BID [facility] Last Admin: 07/04/17 10:32 Dose: 25 mg Cpbwv-6-Thqu Ethyl Esters (Lovaza) 1 gm PO DAILY [facility] Last Admin: 07/04/17 10:30 Dose: 1 gm Oxcarbazepine (Trileptal) 150 mg PO QAM [facility] PRN Reason: Protocol Last Admin: 07/04/17 10:40 Dose: 150 mg Oxycodone/Acetaminophen (Percocet 5/325 Mg Tab) 1 tab PO Q4H PRN PRN Reason: Pain, moderate (4-7) Stop: 07/05/17 22:43 Last Admin: 07/03/17 22:13 Dose: 1 tab Pantoprazole Sodium (Protonix Ec Tab) 40 mg PO ACB [facility] Last Admin: 07/04/17 06:34 Dose: 40 mg Potassium Chloride (K-Dur 20 Meq Er Tab) 20 meq PO DAILY [facility] Last Admin: 07/04/17 10:32 Dose: 20 meq Tamsulosin HCl (Flomax) 0.4 mg PO DAILY [facility] Last Admin: 07/04/17 10:32 Dose: 0.4 mg Warfarin Sodium (Coumadin) 10 mg PO 1800 [facility] PRN Reason: Protocol Last Admin: 07/03/17 17:39 Dose: 10 mg - Labs Labs: 07/04/17 06:40 07/04/17 06:40 PT 24.5 SECONDS (9.4-12.5) H 07/04/17 10:30 INR 2.19 (0.93-1.08) H 07/04/17 10:30 APTT 28.2 Seconds (25.1-36.5) 12/29/17 06:30 - Constitutional Appears: Non-toxic, No Acute Distress, Chronically Ill - Head Exam Head Exam: ATRAUMATIC, NORMOCEPHALIC - Eye Exam Eye Exam: EOMI, PERRL Pupil Exam: NORMAL ACCOMODATION, PERRL - ENT Exam ENT Exam: Mucous Membranes Moist, Normal External Ear Exam, TM's Normal Bilaterally - Neck Exam Neck Exam: Full ROM, Normal Inspection - Respiratory Exam Respiratory Exam: Clear to Ausculation Bilateral, NORMAL BREATHING PATTERN. absent: Rales, Rhonchi, Wheezes - Cardiovascular Exam Cardiovascular Exam: REGULAR RHYTHM, RRR, +S1, +S2 - GI/Abdominal Exam GI & Abdominal Exam: Soft, Normal Bowel Sounds. absent: Distended, Tenderness - Extremities Exam Extremities Exam: Full ROM, Normal Inspection - Neurological Exam Neurological Exam: Alert, Awake, CN II-XII Intact, Oriented x3 - Psychiatric Exam Psychiatric exam: Normal Affect, Normal Mood - Skin Skin Exam: Intact, Normal Color Assessment and Plan - Assessment and Plan (Free Text) Assessment: 71 yo male with abdominal pain, diarrhea, and fevers. [place] cultures sent. CT scan showing diverticulosis but no signs of diverticulitis. Fevers up to 101.3 F on admission. Cultures of stool as well as C. Diff sent for evaluation. Monitor WBC trend and fever trend. Started on Rocephin for antibiotic coverage. Added Flagyl to regimen. Seen by GI. Supportive care. Cholelithiasis on abdominal ultrasound. Cholecystectomy done. Abdominal ultrasound mostly unimpressive. Possible ERCP? Continue on Rocephin and Flagyl for now. E. coli growth on blood cultures and presumed growth from abdominal surgical cultures. Supportive care. The patient is feeling better now. Tolerating oral feeds and solid foods. When ready for discharge, the patient can be switched to oral antibiotics Keflex 500mg PO TID for 10 more days on discharge. Patient is awaiting INR to be therapeutic with anticoagulants before discharge. Thank you for allowing me to participate in the care of this patient, we will follow with you.
[2017-07-04] MEDS ORDERED: Magnesium Sulfate 2 GM in Sodium Chloride 0.9% 100 ML IVPB ONE (14:09)
--- NOTE | 2017-07-04 18:15 | PN ---
DATE: 07/04/2017 SUBJECTIVE: This patient was seen and evaluated earlier, tolerating the diet, feels better. PHYSICAL EXAMINATION VITAL SIGNS: Temperature 98.7, pulse 68, blood pressure 159/71. HEENT: Atraumatic. Anicteric. NECK: Supple. HEART: S1 and S2 heard. LUNGS: Bilateral air entry present. ABDOMEN: Soft. Bowel sounds present. LABORATORY DATA: Hemoglobin 11.5, hematocrit 34.8, magnesium 1.6, INR 2.18. LFTs showing good improvement. Patient is planned to be discharged to home today. We will give another magnesium rider as magnesium is still 1.6. Continue the anticoagulation as per the primary. The other comorbidities include atrial fibrillation, coronary artery disease, status post coronary artery bypass graft, diabetes mellitus. Thank you very much for allowing us to participate in the care of the patient. Stacey Tolentino MD
--- NOTE | 2017-07-04 23:23 | PN ---
PULMONARY PROGRESS NOTE DATE: 07/04/2017 REFERRING PHYSICIAN: Holly Corbin MD SUBJECTIVE: He is out of bed to chair, feels okay, tolerating feeding, p.o. diet well. No cough. No shortness of breath. Mild abdominal pain. No nausea. No vomiting, diarrhea, leg pain, or leg swelling. OBJECTIVE: GENERAL: In no acute distress. VITAL SIGNS: Temperature is 98, pulse is 68, respiratory rate is 20, blood pressure is 159/71, and pulse ox 95% on room air. HEENT: Moist mucous membranes. No ulcer or thrush noted. NECK: Supple. No JVD. LUNGS: Has a fair airflow with rhonchi. HEART: S1 and S2. ABDOMEN: Positive bowel sounds. Mild right upper quadrant tenderness on palpation. EXTREMITIES: There is no edema. NEUROLOGIC: Awake, alert, and follow simple commands. MEDICATIONS: Reviewed and noted. No new change in medication reported. LABORATORY DATA: Shows hemoglobin 11.5, hematocrit 34.8, WBC 10.0, and platelet count is 384. INR 2.19. Sodium of 139, potassium 4.3, chloride 103, bicarbonate 29, BUN 19, creatinine , glucose 98, calcium 9.8, magnesium is 1.6, total bili 0.8, AST 52, ALT 66, alk phos is 125, and albumin is 3.6. Microbiology; repeat blood culture has been negative. IMPRESSION AND PLAN: Status post cholecystectomy, chronic lung disease, obstructive sleep apnea syndrome, coronary artery disease, history of coronary artery bypass surgery, hypertension, hypothyroid, atrial fibrillation, diabetes, morbid obesity, and resolving bacteremia. Pulmonary point of view, he is doing well. The patient is being discharged home. Antibiotics as per Infectious Disease. Follow with GI. Thank you and we will follow with you. John Steele MD
--- NOTE | 2017-07-05 10:19 | PN ---
DATE: 07/03/2017 SUBJECTIVE: This patient was seen and evaluated earlier today. The patient is tolerating the diet. Complains of mild discomfort at the trocar site of the surgery. PHYSICAL EXAMINATION: VITAL SIGNS: Temperature afebrile, blood pressure is 144/70, pulse is 67, respirations 18. HEENT: Atraumatic. Anicteric. NECK: Supple. HEART: S1 and S2 heard. LUNGS: Bilateral air entry present. ABDOMEN: Soft. Mild tenderness at the trocar site. EXTREMITIES: Mild edema at present. NEUROLOGIC: Alert, oriented, and moves all the extremities. LABORATORY DATA: Magnesium is 1.4. INR is 1.57. IMPRESSION: This is a 71-year-old patient with status post cholecystectomy. Liver function test has been improving. The patient has hypomagnesemia and is being supplemented today. We will follow up the labs tomorrow. The patient has history of atrial fibrillation, on Coumadin and also on Lovenox. INR today is 1.57, waiting for this to be subtherapeutic. Infectious Disease review was noticed. The patient is advised to continue with the antibiotics till discharge and Infectious Disease recommendation is to continue the antibiotics till discharge as an out patient to complete the course with the Keflex, but I reviewed the MAR and I could not find ceftriaxone. It looks like it dropped out. We will restart it after confirming with the Infectious Disease. Followup of the liver function test appears to be improving. Thank you very much for allowing us to participate in the care of the patient. Stacey Tolentino MD
--- NOTE | 2017-07-06 21:32 | OP ---
PROCEDURE DATE: 06/28/2017 LOCATION: Admitted on 06/27/2017 to room 374, bed 2. PREOPERATIVE DIAGNOSES: 1. Cholecystitis - cholelithiasis. 2. Obstructive jaundice. 3. Hypertensive coronary artery disease. 4. Diabetes mellitus. POSTOPERATIVE DIAGNOSES: 1. Cholecystitis - cholelithiasis. 2. Obstructive jaundice. 3. Hypertensive coronary artery disease. 4. Diabetes mellitus. PATHOLOGY: Pending. PROCEDURES: 1. On 06/28/2017 is a laparoscopic cholecystectomy. 2. Intraoperative cholangiogram (multiply attempted). SURGEON: Oscar Gomez M.D. MINE SUPERINTENDENT: Hailee Ruvalcaba D.O. PGY2. SECOND ENTERTAINMENT DANCER: Winston Lowry D.O., PGY1. ANESTHESIOLOGIST: Kevin Sawyer M.D. ANESTHESIA: General endotracheal-Marcaine 0.5-20 mL. OPERATIVE INDICATION: The patient is a 71-year-old male with a 1 plus day history of abdominal pain presumptively on the right side, not specific on admission to the emergency room, and found to have a left shift with a white count was 6000 and obstructive jaundice with a bilirubin of above 2, rising to 4. The patient has sonographically confirmed stones, common bile duct of 6 mm, and a normal elevated alkaline phosphatase. Following admission, the next day his white count shows 20 bands and this surgical instrument technician recommended an urgent operation without delay. Risks, benefits and alternatives with their anticipated outcomes were discussed with the patient and he signed the informed consent. OPERATIVE NOTE: The patient was brought to the operating room, identified by his wrist band, undergoes time-out procedure was placed on the table in a supine manner. Following the induction of general anesthesia and the insertion of an endotracheal tube, sequential compression devices were placed in his lower extremities and the patient was then aseptically draped after Hibiclens chlorhexidine preparation. The umbilicus was elevated on towel clips, infiltrated, and the peritoneum was entered with a Veress needle and insufflated with carbon dioxide gas to 14 mmHg pressure. The needle was removed, replaced with a Visiport and entry into the peritoneal cavity clearly seen, and the obturator removed and the Storz operating laparoscope inserted and the abdomen explored. The patient is morbidly obese and requires extensive reverse Trendelenburg and left lateral Lilly rotation to expose the right upper quadrant which is demonstrating the chronic acute inflammation. Under direct vision an 11-mm port was placed in the right subxiphoid location and two 5 mm ports placed in the right upper quadrant. With these all in place, a fifth port was required in the right upper quadrant above the other two, giving additional exposure and allowing direct access to the biliary tree. The gallbladder was aspirated with several hundred mL of turbid brown fluid, cultured aerobically and anaerobically, and the gallbladder was grasped with Prestige clamps and the ferny hepatis dissected free and the cystic duct delineated. The cystic duct was doubly hemoclipped and multiple attempts were made over the next 15 minutes to cannulate the cystic duct and injection of saline failed to pass and an obstruction in the cystic duct could not be removed by manipulation and external compression. An injection of dye was performed; however, the contrast never entered the biliary tree at this point and it was elected at this point to triply hemoclip the cystic duct and transect same. The balloon passed through the wall of the side of the cystic duct requiring a lower placement of the clips. The cystic artery is now identified and surprising posterior version of same was also encountered and these were both separately hemoclipped and the gallbladder was now removed from the liver bed in a prograde fashion using electrocoagulating cautery. Significant oozing was encountered and this required extensive electrocoagulation and this will also prevent accessory duct leakage postoperatively. It was elected at this point, after removal of the gallbladder and opening it on the sterile field, that the area of the biliary tree and liver bed be drained with a Greg 15-Czech drain. This was placed through the lateral 5 mm port, secured with 2-0 Surgidac polyester suture, and positioned accordingly. Two installations of Endo Avitene were placed into the liver bed and hemostasis was visualized as contained at this point. The two midline ports were closed with the exit closure device and #2-0 PDS suture, and the skin closed with 4-0 Monocryl and Dermabond adhesive. The patient was awakened, extubated, and transported to the recovery room in a satisfactory condition. Sponge, instrument, and suture count were verified as correct at the end of the procedure. Estimated blood loss during this procedure was less than 100 mL of blood. This dictation will be electronically signed without being read. The surgical assistants were present from beginning to end throughout and were very essential in the dissection and in the removal of the gallbladder in this particular patient. Oscar Gomez MD
--- NOTE | 2017-07-08 03:20 | DS ---
[facility] for 07/04/17 CHIEF COMPLAINT: Abdominal pain. HISTORY OF PRESENT ILLNESS: Mr. Tk Woodard is a 71-year-old male with a history of atrial fibrillation who was on Coumadin, and CABG, hypertension, hypercholesterolemia, diabetes mellitus, and history of stroke, who came in to the Emergency Room with his son complaining of abdominal pain. The son informed that the patient has been feeling a sharp epigastric pain associated with the dizziness, nausea, and lightheadedness, and has diarrhea for two days and is yellower than his usual urine. Actually, the patient was seen in the Emergency Room on 12/24/2016 for similar complaints. No shortness of breath. Readmitted the patient. Did CAT scan of abdomen and pelvis. Abdominal ultrasound. Nuclear scan was done. The patient was seen by Dr. Tolentino, GI; Dr. Oscar Tamayo, Surgeon; Dr. Steele, epic manager; Dr. Oscar Gomez, did cholecystectomy, the patient had cholelithiasis. The patient was treated by Dr. Oscar Tamayo also, Infectious Disease. The patient improved on 07/04/2017, tolerated food. Cleared by the surgeon. Discharged home. Follow up with primary care physician and surgeon. Needed to follow up with PT/INR. Adjust the Coumadin, the patient was educated and he knows. PAST MEDICAL HISTORY: As above, history of [place], open heart surgery with valve replacement in 2011, pacemaker, but changed in 2010, LILA, history of stroke, diabetes mellitus type 2, hypothyroidism, and history of right hand surgery. FAMILY HISTORY: Father and mother noncontributory. HABITS: No alcohol. No substance abuse. No smoking. ALLERGIES: THE PATIENT IS NOT ALLERGIC TO ANY MEDICATIONS. HOME MEDICATIONS: Reviewed by me. REVIEW OF SYSTEMS: The patient was seen and examined at the bedside on 07/04/2017, looking comfortable, tolerated the food. discharge from the surgical team . No fever. No chills. No hematuria. No hematochezia. Because of holidays, he is rushing to go back to home. PHYSICAL EXAMINATION: VITAL SIGNS: Temperature 98, pulse 68, respiratory rate 20, blood pressure 159/71, and pulse oximetry 95% on room air. HEENT: Head normocephalic, atraumatic. Eyes: PERRLA. Extraocular muscles are intact. Conjunctivae clear. Nose patent. Mucous membranes moist. NECK: Supple. No carotid bruit, JVD or thyromegaly. LUNGS: Has fair airflow with few rhonchi. ABDOMEN: Soft. Bowel sounds present. No organomegaly. No more tender. EXTREMITIES: No edema. No cyanosis. NEUROLOGIC: The patient is awake and alert. Follows simple commands. MEDICATIONS: Reviewed by me. LABORATORY DATA: Hemoglobin 11.5, hematocrit 34.8, white blood cells 10.0, and platelets 384. Sodium 139, potassium 4.3, BUN 19, glucose 98, calcium 9.8, magnesium 1.6, total bilirubin 0.8, AST 52, and ALT 66. ASSESSMENT AND PLAN: Mr. Tk Woodard is a 71-year-old male status post cholecystectomy, obstructive sleep apnea syndrome, chronic obstructive lung disease, coronary artery disease coronary artery bypass surgery, hypertension, hypothyroidism, atrial fibrillation on Coumadin, morbid obesity, resolving bacteremia, and status post cholelithiasis, cholecystectomy. The patient is going home with two types of antibiotics as per Infectious Disease. GI and DVT prophylaxis. Repeat labs. We will follow up. Holly Corbin MD TEIM[facility]
== END 2017-07-04 17:50 | disposition home or self-care (01) | DRG 417 ==
LOC: ED 18:33 → ERH 06-27 00:23 → 3RSO 06-27 01:18 → 5RNO 06-30 18:38
PROVIDERS: ADMIT Internal Medicine; ATTEND Internal Medicine
PROC: 0FT44ZZ Resection of Gallbladder, Percutaneous Endoscopic Approach (ICD-10-PCS; principal; 2017-06-28 13:30)
DX: K80.00 Calculus of gallbladder with acute cholecystitis without obstruction (principal); A41.50 Gram-negative sepsis, unspecified; I48.2 Chronic atrial fibrillation; E83.39 Other disorders of phosphorus metabolism; E66.01 Morbid (severe) obesity due to excess calories; E11.9 Type 2 diabetes mellitus without complications; D64.9 Anemia, unspecified; J84.10 Pulmonary fibrosis, unspecified; J44.9 Chronic obstructive pulmonary disease, unspecified; E83.42 Hypomagnesemia; E83.51 Hypocalcemia; E03.9 Hypothyroidism, unspecified; E78.00 Pure hypercholesterolemia, unspecified; I10 Essential (primary) hypertension; I25.10 Atherosclerotic heart disease of native coronary artery without angina pectoris; K21.9 Gastro-esophageal reflux disease without esophagitis; K22.70 Barrett's esophagus without dysplasia; K57.50 Diverticulosis of both small and large intestine without perforation or abscess without bleeding; E78.1 Pure hyperglyceridemia; G47.33 Obstructive sleep apnea (adult) (pediatric); K76.0 Fatty (change of) liver, not elsewhere classified; Z68.38 Body mass index [BMI] 38.0-38.9, adult; N28.9 Disorder of kidney and ureter, unspecified; Z86.73 Personal history of transient ischemic attack (TIA), and cerebral infarction without residual deficits; Z79.01 Long term (current) use of anticoagulants; I25.2 Old myocardial infarction; Z95.0 Presence of cardiac pacemaker; Z95.1 Presence of aortocoronary bypass graft; Z95.5 Presence of coronary angioplasty implant and graft; Z95.3 Presence of xenogenic heart valve; Z86.010 Personal history of colon polyps; Z87.891 Personal history of nicotine dependence

== ENCOUNTER 2018-09-12 14:08 | Outpatient (CLI) | payer OTHER | END 2018-09-12 14:09 | disposition home or self-care (01) | LOC: CARDIO 14:08 ==